=== PATIENT | male | born 1945 | race Caucasian/White ===

== ENCOUNTER → 2017-08-05 08:16 | Outpatient (CLI) | payer MEDICARE, SELFPAY ==
[2017-08-07 14:09] LABS: PSA Free % 15 % (calc) (> 25); PSA, Total 3.4 ng/mL (< 4.1)
== END ==
PROVIDERS: PCP Family Medicine; Visit Provider Family Medicine
DX: R97.20 Elevated prostate specific antigen [PSA] (principal)
CPT/HCPCS: 36415; 84153; 84154

== ENCOUNTER → 2017-11-05 06:51 | Outpatient (CLI) | payer MEDICARE, OTHER, SELFPAY ==
[2017-11-07 12:22] LABS: PSA Free % 17 % (calc) (> 25); PSA, Total 5.2 ng/mL (< 4.1)
== END ==
PROVIDERS: PCP Family Medicine; Visit Provider Family Medicine
DX: R97.20 Elevated prostate specific antigen [PSA] (principal)
CPT/HCPCS: 36415; 84153; 84154

== ENCOUNTER → 2018-03-21 08:46 | Outpatient (CLI) | payer MEDICARE, OTHER, SELFPAY ==
--- NOTE | 2018-03-21 | DI.CT.S_ITS ---
PROCEDURE: CT SINUS SCREEN WO CON INDICATIONS: CHRONIC SINITIS TECHNIQUE: Noncontrast 3.0 mm axial images acquired from the frontal sinuses to the mid-sella, with coronal and sagittal reformats. For radiation dose reduction, the following was used: automated exposure control, adjustment of mA and/or kV according to patient size. COMPARISON: None. FINDINGS: Image quality: Excellent. Maxillary Sinuses: There is moderate to prominent left-sided and moderate right-sided mucosal thickening seen. Mild demineralization can be seen of the medial churchill of the maxillary sinuses. Ethmoid Air Cells: Moderate mucosal thickening is seen within the ethmoid air cells. There is mild demineralization seen of ethmoid air cell septations. Sphenoid Sinuses: No bony remodeling or destruction. Sinuses are clear. Frontal Sinuses: No bony remodeling or destruction. Moderate mucosal thickening can be seen on the right, with mild mucosal thickening on the left. Ostiomeatal Complexes: The left ostiomeatal complex appears occluded by soft tissue. The right ostiomeatal complex is patent, yet is narrowed by soft tissue thickening. The ostiomeatal complexes are demineralized. Miscellaneous: Visualized intra-orbital contents are normal. No susu bullosa or paradoxical turbinate curvature. There is mild rightward nasal septal deviation. IMPRESSION: Chronic appearing paranasal sinus disease, which is most prominent involving the left maxillary sinus. The left ostiomeatal complex appears occluded by soft tissue. Dictated by: Ino Stallings M.D. on 03/21/2018 at 9:15 Approved by: Ino Stallings M.D. on 03/21/2018 at 9:18
== END ==
PROVIDERS: PCP Family Medicine; Visit Provider Otolaryngology
DX: J32.8 Other chronic sinusitis (principal); J34.2 Deviated nasal septum
CPT/HCPCS: 70486

== ENCOUNTER → 2018-07-02 08:03 | Outpatient (CLI) | payer MEDICARE, OTHER, SELFPAY ==
[2018-07-05 17:18] LABS: PSA Free % 13 % (calc) (> 25); PSA, Total 3.9 ng/mL (< 4.1)
== END ==
PROVIDERS: PCP Family Medicine; Visit Provider Urology
DX: R97.20 Elevated prostate specific antigen [PSA] (principal)
CPT/HCPCS: 36415; 84153; 84154

== ENCOUNTER → 2018-09-17 07:20 | Outpatient (CLI) | payer MEDICARE, OTHER, SELFPAY ==
[2018-09-17 07:38] LABS: Add Manual Diff / Slide Review NO; Basophils Absolute Auto 0 /uL (0-100); Basophils Percent Auto 0.5 % (0-2); Eosinophils Absolute Auto 300 /uL (0-450); Eosinophils Percent Auto 5.6 % (2-4); Hematocrit 41.5 % (41-53); Hemoglobin 13.8 g/dL (13.5-17.5); Lymphocytes Absolute Auto 1800 /uL (1100-4500); Lymphocytes Percent Auto 30.4 % (25-40); Mean Corpuscular HGB Conc 33.3 % (30-36); Mean Corpuscular Hemoglobin 29.1 PG (26-34); Mean Corpuscular Volume 87.5 fL (80-100); Monocytes Absolute Auto 500 /uL (0-900); Monocytes Percent Auto 8.5 % (3-14); Neutrophils Absolute Auto 3200 /uL (1500-7000); Platelet Count 211 X10^3/uL (150-400); Red Blood Cell Count 4.74 X10^6/uL (4.5-5.9); Red Cell Distribution Width 14.6 % (11.6-14.8); White Blood Cell Count 5.9 X10^3/uL (4.5-11.0)
[2018-09-17 07:47] LABS: Alanine Aminotransferase 51 IU/L (21-72); Albumin 4.3 g/dL (3.5-5.0); Albumin Globulin Ratio 1.4 (1.0-2.8); Alkaline Phosphatase 49 U/L (38-126); Aspartate Aminotransferase 49 IU/L (17-59); BUN Creatinine Ratio 21.3 (6-22); Bilirubin Total 0.6 mg/dL (0.2-1.3); Blood Urea Nitrogen 17 mg/dL (9-20); Calcium 9.7 mg/dL (8.4-10.2); Carbon Dioxide 32 mmol/L (22-32); Chloride 104 mmol/L (98-107); Cholesterol 206 mg/dL (140-199); Estimated Glomerular Filt Rate > 60.0 mL/min (>60); Globulin 3.1 g/dL (1.7-4.1); Glucose 94 mg/dL (80-110); HDL Cholesterol 75 mg/dL (40-60); HEMOLYSIS < 15 (0-50); LDL Cholesterol Calculated 115 mg/dL (<100); Potassium 4.8 mmol/L (3.4-5.1); Sodium 143 mmol/L (137-145); Total Protein 7.4 g/dL (6.3-8.2); Triglycerides 78 mg/dL (35-150)
[2018-09-17 08:28] LABS: Thyroid Stimulating Hormone 3.29 uIU/mL (0.47-4.68)
[2018-09-20 14:12] LABS: PSA Free % 18 % (calc) (> 25); PSA, Total 5.1 ng/mL (< 4.1)
== END ==
PROVIDERS: PCP Family Medicine; Visit Provider Family Medicine
DX: E78.5 Hyperlipidemia, unspecified (principal); Z79.899 Other long term (current) drug therapy; I10 Essential (primary) hypertension; R97.20 Elevated prostate specific antigen [PSA]
CPT/HCPCS: 36415; 80053; 80061; 84153; 84154; 84443; 85025

== ENCOUNTER 2018-10-20 07:44 | Emergency (ER) | payer MEDICARE, SELFPAY ==
[2018-10-20 07:56] VITALS: BP 162/85; PULSE 65; RESP 16; TEMP 36.4; O2SAT 100; BMI 29.2
--- NOTE | 2018-10-20 08:14 | ED.LOWEXIN ---
HPI - Extremity Injury (Lower) General Chief Complaint: Extremity Injury, Lower Stated Complaint: LT KNEE KEEPING FROM WALKING Time Seen by Provider: 10/20/18 08:12 Source: patient Mode of arrival: ambulatory Limitations: no limitations History of Present Illness HPI Narrative: Patient is a 73-year-old male who presents with left knee pain. He states has been ongoing for about the last 7-10 days. He says he rides a recumbent bicycle 67 days a week for an hour. This is nothing abnormal for him. He denies any other strenuous activity. He denies numbness or tingling. This morning woke up and thought it was a little more swollen than the right knee. He has not taken any Tylenol or ibuprofen for pain. Related Data Home Medications Medication Instructions Recorded Confirmed CA PANTOTHENATE/FOLIC ACID/VIT 1 tab PO Q DAY #0 03/23/11 09/24/18 (MULTIVITAMIN) Fish Oil (#FISH OIL) 1 iu PO Q DAY #0 03/23/11 09/24/18 Glucosamine Hydrochloride 500 mg PO Q DAY #0 03/23/11 09/24/18 (#GLUCOSAMINE) [CALCIUM] Q DAY #0 03/23/11 09/24/18 ascorbic acid (vitamin C) 1,000 mg PO QDAY #0 07/31/12 09/24/18 [employer] Dreamstation CPAP #1 ea 09/01/18 09/24/18 Previous Rx's Medication Instructions Recorded atorvastatin 40 mg tablet 20 mg PO DAILY #45 tab 09/25/18 paroxetine 20 mg tablet 20 mg PO QDAY #90 tab 09/25/18 Allergies Allergy/AdvReac Type Severity Reaction Status Date / Time ibuprofen [IBUPROFEN] Allergy Intermediate HIVES Verified 09/24/18 11:14 Review of Systems Review of Systems GENERAL: Denies chills,fever HEENT: Denies throat pain RESPIRATORY: See HPI CARDIOVASCULAR: Denies chest pain, palpitations GASTROINTESTINAL: Denies nausea, vomiting MUSCULOSKELETAL: Denies extremity pain, injury SKIN: No rash, no laceration, no pruritus NEUROLOGIC: Denies weakness, dizziness, headache, numbness 8 point review of systems is negative except for those stated above and HPI [facility] Medical History Obstructive sleep apnea of adult (Chronic) Chronic congestion of paranasal sinus (Chronic) Hay fever (Chronic) Hearing deficit (Chronic) Sleep apnea (Chronic) Vision disorder (Chronic) Surgical History Anesthesia (Resolved) Status post hernia repair Status post rotator cuff repair Family History (Updated 04/30/16 @ 00:00 by Conversion Provider) Mother Heart disease Social History (Updated 03/05/18 @ 12:11 by JONELLE Howe) marital status: details: mikel Brown household members: spouse lives independently: Yes caregiver/support person: No 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 Smoking Status: Never smoker alcohol intake: current substance use type: does not use Type(s) of exercise: bicycling and regular exercise frequency: 5-6 times per week Family History Mother Heart disease Social History marital status: details: mikel Brown household members: spouse lives independently: Yes caregiver/support person: No 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 CARDIOVASCULAR: peripheral pulses in tact, cap refill <2 sec RESPIRATORY: No respiratory distress, speaks in full sentences without difficulty EXTREMITIES: Normal range of motion, no clubbing or edema. Neurovascularly intact Left knee: Stable minimal swelling no erythema NEUROLOGICAL: Cranial nerves II through XII grossly intact. Normal gait and speech. SKIN: Warm, dry, no petechiae, no rashes or lesions. Course Orders Ordered: ED Orders 10/20/18 08:14 XR knee LT 3V Stat Vital Signs - 8 hr 10/20/18 07:56 Temperature 97.6 F Pulse Rate 65 Respiratory Rate 16 Blood Pressure 162/85 H Pulse Oximetry 100 MDM - Extremity Injury (Lower) Imaging Data left knee: Radiologist's impression: PROCEDURE: XR KNEE LT 3V INDICATIONS: pain TECHNIQUE: 3 views of the knee were acquired. COMPARISON: [facility], , KNEE 3V RIGHT, 09/20/2015, 10:47. FINDINGS: Bones: No fractures or dislocations. Moderate DJD most pronounced in the medial compartment where there is joint space narrowing and osteophytosis. No suspicious bony lesions. Soft tissues: Large joint effusion. No suspicious soft tissue calcifications. IMPRESSION: No acute osseous abnormality. Large joint effusion. Dictated by: Ko Howell M.D. on 10/20/2018 at 8:58 Discharge Plan Departure Patient Disposition: Home Clinical Impression: Strain of knee Qualifiers: Encounter type: initial encounter Laterality: left Qualified Code(s): S86.912A - Strain of unspecified muscle(s) and tendon(s) at lower leg level, left leg, initial encounter Instructions: DI for Osteoarthritis Activity Restrictions/Additional Instructions: *You have been diagnosed with left knee strain *What to do: Exercises good specially riding the bike. However if it becomes too painful you may need to cut back on the frequency or duration. Ice 20 minutes at a time elevate *Continue to take medications as directed Tylenol 1000 mg every 6 hours only needed for pain *Follow up with your primary care provider in 2-3 days *Return to ER if you should have redness swelling numbness tingling weakness or any new, worsening or concerning symptoms Prescriptions: No Action Fish Oil (#FISH OIL) 1 iu PO Q DAY Qty: 0 RF: 0 CA PANTOTHENATE/FOLIC ACID/VIT (MULTIVITAMIN) 1 tab PO Q DAY Qty: 0 RF: 0 [CALCIUM] Q DAY Qty: 0 RF: 0 Glucosamine Hydrochloride (#GLUCOSAMINE) 500 mg PO Q DAY Qty: 0 RF: 0 ascorbic acid (vitamin C) 500 MG tablet 1,000 mg PO QDAY Qty: 0 RF: 0 atorvastatin 40 mg tablet 20 mg PO DAILY Qty: 45 RF: 3 paroxetine HCl [Paxil] 20 mg tablet 20 mg PO QDAY Qty: 90 RF: 3 [employer] Dreamstation CPAP Qty: 1 RF: 0 Referrals: Nelson Dias MD [Primary Care Provider] -
[2018-10-20 09:15] VITALS: BP 158/88; PULSE 78; RESP 18; O2SAT 98
== END 2018-10-20 09:20 | disposition home or self-care (01) ==
PROVIDERS: Emergency Provider Emergency Medicine; PCP Family Medicine
DX: S86.912A Strain of unspecified muscle(s) and tendon(s) at lower leg level, left leg, initial encounter (principal)
CPT/HCPCS: 73562; 99282; 99283

== ENCOUNTER → 2018-11-04 10:18 | Outpatient (CLI) | payer MEDICARE, SELFPAY ==
--- NOTE | 2018-11-04 | DI.US.S_ITS ---
PROCEDURE: US PERIPH VENOUS LOW EXTREM LT INDICATIONS: PAIN IN LT KNEE TECHNIQUE: Real-time imaging, as well as color and pulse Doppler interrogation, were performed of the lower extremity deep veins from the inguinal ligament to the popliteal fossa. COMPARISON: None. FINDINGS: The common femoral, femoral and popliteal veins are normally compressible, and free of intraluminal thrombus. Color and pulse Doppler demonstrate normal phasic intraluminal flow. There is normal augmentation response to distal compression maneuver. Note is made of a ovoid structure measuring 1.2 x 3.5 x 4.9 cm at the posterior medial knee, with an appearance suggestive of ruptured Berg cyst as the underlying cause. Adjacent muscular tear also might produce such an appearance. MR scanning can be utilized accurately discriminate between these 2 possibilities if clinically desired. IMPRESSION: No DVT found. Berg's cyst rupture versus muscular injury as discussed, statistically most likely a Berg's cyst as the underlying cause. Dictated by: Iker Valero M.D. on 11/04/2018 at 14:58 Approved by: Iker Valero M.D. on 11/04/2018 at 14:59
== END ==
PROVIDERS: PCP Family Medicine; Visit Provider Orthopaedic Surgery
DX: M25.562 Pain in left knee (principal)
CPT/HCPCS: 93971

== ENCOUNTER 2019-04-20 21:23 | Emergency (ER) | payer MEDICARE, OTHER, SELFPAY ==
[2019-04-20 21:32] VITALS: BP 128/65; PULSE 72; RESP 16; TEMP 36.8; O2SAT 99; BMI 27.8
--- NOTE | 2019-04-20 21:43 | DI.RAD.S_ITS ---
PROCEDURE: XR CHEST 1V INDICATIONS: chest pain TECHNIQUE: One view of the chest was acquired. COMPARISON: [facility], , CHEST 2 VIEW, 06/26/2013, 21:01. FINDINGS: Surgical changes and devices: None. Lungs and pleura: Lungs are hyperlucent. No focal consolidation. No pleural effusions or pneumothorax. Mediastinum: Mediastinal contours appear normal. Prominent central pulmonary arteries. Heart size is normal. Bones and chest wall: No suspicious bony lesions. Overlying soft tissues appear unremarkable. IMPRESSION: 1. No acute radioulnar disease. 2. Underlying emphysematous change. Dictated by: Yessenia Pacheco M.D. on 04/20/2019 at 22:23 Approved by: Yessenia Pacheco M.D. on 04/20/2019 at 22:23
--- NOTE | 2019-04-20 21:44 | DI.CT.S_ITS ---
PROCEDURE: CT HEAD/BRAIN WO CON INDICATIONS: syncope TECHNIQUE: Noncontrast 4.5 mm thick angled axial sections acquired from the foramen magnum to the vertex, with coronal and sagittal reformats. For radiation dose reduction, the following was used: automated exposure control, adjustment of mA and/or kV according to patient size. COMPARISON: None. FINDINGS: Image quality: Excellent. CSF spaces: Basal cisterns are patent. No extra-axial fluid collections. The ventricles are symmetric in size and shape. Brain: No intracranial bleeds or masses. There is cerebral volume loss for age, with resultant ventricular and sulcal prominence. There are periventricular and deep white matter chronic small vessel ischemic changes. There is intracranial internal carotid artery atherosclerosis. Skull and face: Calvarium and visualized facial bones appear intact, without suspicious lesions. Sinuses: Mucosal thickening is scattered throughout the ethmoid air cells. Frothy air fluid level noted in the sphenoid sinuses. Scattered opacities noted in the left mastoid air cells with a few scattered air-fluid levels. Air fluid level noted in the left middle ear. IMPRESSION: 1. No acute intracranial disease process. 2. Opacities and air-fluid levels involving the left mastoid air cells and left middle ear concerning for otomastoiditis. Please correlate with clinical findings. Dictated by: Nicki Rudolph MD, PhD on 04/21/2019 at 7:27 Approved by: Nicki Rudolph MD, PhD on 04/21/2019 at 7:35
[2019-04-20 21:56] LABS: PTT Partial Thromboplastin Tim 27 SECONDS (26.4-36.2)
[2019-04-20 21:58] LABS: Alanine Aminotransferase 31 IU/L (<50); Albumin 4.4 g/dL (3.5-5.0); Albumin Globulin Ratio 1.4 (1.0-2.8); Alkaline Phosphatase 37 U/L (38-126); Aspartate Aminotransferase 57 IU/L (17-59); Bilirubin Total 0.5 mg/dL (0.2-1.3); Blood Urea Nitrogen 24 mg/dL (9-20); Calcium 9.8 mg/dL (8.4-10.2); Carbon Dioxide 26 mmol/L (22-32); Chloride 105 mmol/L (98-107); Creatine Kinase 86 U/L (55-170); Estimated Glomerular Filt Rate > 60.0 mL/min (>60); Globulin 3.1 g/dL (1.7-4.1); Glucose 121 mg/dL (80-110); Lipase 166 U/L (23-300); Potassium 4.6 mmol/L (3.4-5.1); Sodium 141 mmol/L (137-145); Total Protein 7.5 g/dL (6.3-8.2)
[2019-04-20 21:59] LABS: HEMOLYSIS 111 (0-50)
[2019-04-20 22:00] LABS: Add Manual Diff / Slide Review NO; Basophils Absolute Auto 100 /uL (0-100); Eosinophils Absolute Auto 400 /uL (0-450); Eosinophils Percent Auto 4.4 % (2-4); Hematocrit 38.5 % (41-53); Lymphocytes Absolute Auto 3900 /uL (1100-4500); Lymphocytes Percent Auto 43.9 % (25-40); Mean Corpuscular HGB Conc 33.7 % (30-36); Mean Corpuscular Hemoglobin 29.2 PG (26-34); Mean Corpuscular Volume 86.5 fL (80-100); Monocytes Absolute Auto 700 /uL (0-900); Monocytes Percent Auto 8.3 % (3-14); Neutrophils Absolute Auto 3700 /uL (1500-7000); Neutrophils Percent Auto 42.4 % (50-75); Platelet Count 266 X10^3/uL (150-400); Red Blood Cell Count 4.45 X10^6/uL (4.5-5.9); White Blood Cell Count 8.8 X10^3/uL (4.5-11.0)
[2019-04-20 22:10] LABS: Troponin I < 0.012 ng/mL (0.01-0.034)
--- NOTE | 2019-04-20 23:15 | ED_ITS ---
HPI - Syncope General Chief Complaint: Syncope Stated Complaint: Syncope Time Seen by Provider: 04/20/19 23:10 Source: patient Mode of arrival: EMS Limitations: no limitations History of Present Illness HPI narrative: This is a 74-year-old male who comes to the emergency department with complaint of syncope. Patient states this evening he had not had much to drink in terms of water he had about 36 oz total which is not normal for him he gone to the gym then driven [place] the airport [place] his [place]. Had gone out to dinner with them and then went home have dinner he had 2-3 glasses of wine and smoked some marijuana he states he has had issues if he drinks alcohol and then smokes marijuana and this evening he did do that. He states that he is not sure exactly how long he was out per his she had told him [facility] thought it might have been minutes. Patient denies any headache, no chest pain or shortness of breath, no abdominal pain, no nausea vomiting no GI or urinary symptoms. He is feeling much better at this time. He states he has had similar presyncopal type symptoms when he has combined alcohol and THC particularly when he uses THC after drinking wine. Patient states that he takes medication for cholesterol and depression. He has had a rotator cuff surgery. Denies tobacco, he does drink alcohol intermittently and smokes marijuana occasionally. Related Data Home Medications Medication Instructions Recorded Confirmed CA PANTOTHENATE/FOLIC ACID/VIT 1 tab PO Q DAY #0 03/23/11 09/24/18 (MULTIVITAMIN) Fish Oil (#FISH OIL) 1 iu PO Q DAY #0 03/23/11 09/24/18 Glucosamine Hydrochloride 500 mg PO Q DAY #0 03/23/11 09/24/18 (#GLUCOSAMINE) [CALCIUM] Q DAY #0 03/23/11 09/24/18 ascorbic acid (vitamin C) 1,000 mg PO QDAY #0 07/31/12 09/24/18 [employer]prion[employer] Dreamstation CPAP #1 ea 09/01/18 09/24/18 Previous Rx's Medication Instructions Recorded atorvastatin 40 mg tablet 20 mg PO DAILY #45 tab 09/25/18 paroxetine HCl 20 mg tablet 20 mg PO QDAY #90 tab 09/25/18 Allergies Allergy/AdvReac Type Severity Reaction Status Date / Time ibuprofen [IBUPROFEN] Allergy Intermediate HIVES Verified 04/20/19 21:42 Review of Systems Review of Systems ROS Unobtainable: All systems reviewed & are unremarkable except as noted in HPI and below Patient History Medical History Chronic congestion of paranasal sinus (Chronic) Hay fever (Chronic) Hearing deficit (Chronic) Obstructive sleep apnea of adult (Chronic) Sleep apnea (Chronic) Vision disorder (Chronic) Surgical History Anesthesia (Resolved) Status post hernia repair Status post rotator cuff repair Social History marital status: details: to Stephanie household members: spouse lives independently: Yes caregiver/support person: No 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 HEENT: Atraumatic, pupils are equal round reactive to light, extraocular movements are intact, nares are clear, throat is clear without any exudates, erythema, tonsillar enlargement or uvular deviation HEART: Regular rate and rhythm without murmur, clicks, rubs. LUNGS:Lungs clear to auscultation, no wheezes, rales, crackles, chest moves symmetrically ABD:bowel sounds normal, soft, non-tender, no guarding, rebound, rigidity, no masses noted, no hepatosplenomegaly :No CVA tenderness. MSCL: Non-tender, no muscle atrophy, muscles strength 5/5 upper and lower extremities, full range of motion, normal gait NEURO:CN 2-12 intact, sensation normal. SKIN: no rashes, no skin changes. Initial Vital Signs Initial Vital Signs: Vital Signs Temperature 98.2 F 04/20/19 21:32 Pulse Rate 72 04/20/19 21:32 Respiratory Rate 16 04/20/19 21:32 Blood Pressure 128/65 04/20/19 21:32 Pulse Oximetry 99 04/20/19 21:32 Course Orders Ordered: ED Orders 04/20/19 21:20 Complete Blood Count AUTO DIFF Stat Comprehensive Metabolic Panel Stat Lipase Stat Partial Thromboplastin Time Stat Prothrombin Time INR Stat Troponin & CK Cardiac Panel Stat 04/20/19 21:43 XR chest 1V Stat EKG-12 Lead Stat 04/20/19 21:44 CT head/brain wo con Stat Vital Signs Vital signs: Vital Signs - 8 hr 04/20/19 23:46 Pulse Rate 90 Respiratory Rate 17 Blood Pressure [Left Arm] 142/68 H Pulse Oximetry 97 MDM - Syncope Lab Data Attestation: I reviewed the patient's lab results. Result diagrams: 04/20/19 21:20 04/20/19 21:20 Labs: Lab Results 04/20/19 04/20/19 04/20/19 Range/Units 21:20 21:20 21:20 WBC 8.8 (4.5-11.0) X10^3/uL RBC 4.45 L (4.5-5.9) X10^6/uL Hgb 13.0 L (13.5-17.5) g/dL Hct 38.5 L (41-53) % MCV 86.5 (80-100) fL MCH 29.2 (26-34) PG MCHC 33.7 (30-36) % RDW 14.0 (11.6-14.8) % Plt Count 266 (150-400) X10^3/uL Neut % (Auto) 42.4 L (50-75) % Lymph % (Auto) 43.9 H (25-40) % [place] % (Auto) 8.3 (3-14) % Eos % (Auto) 4.4 H (2-4) % Baso % (Auto) 1.0 (0-2) % Neut # (Auto) 3700 (2658-4664) /uL Lymph # (Auto) 3900 (6324-2272) /uL [place] # (Auto) 700 (0-900) /uL Eos # (Auto) 400 (0-450) /uL Baso # (Auto) 100 (0-100) /uL PT 12.0 (10.1-12.7) SECONDS INR 1.0 (0.9-1.3) APTT 27 (26.4-36.2) SECONDS Sodium 141 (137-145) mmol/L Potassium 4.6 (3.4-5.1) mmol/L Chloride 105 (98-107) mmol/L Carbon Dioxide 26 (22-32) mmol/L BUN 24 H (9-20) mg/dL Creatinine 1.00 (0.66-1.25) mg/dL Estimated GFR > 60.0 (>60) mL/min BUN/Creatinine Ratio 24.0 H (6-22) Glucose 121 H (80-110) mg/dL Calcium 9.8 (8.4-10.2) mg/dL Total Bilirubin 0.5 (0.2-1.3) mg/dL AST 57 (17-59) IU/L ALT 31 (<50) IU/L Alkaline Phosphatase 37 L (38-126) U/L Total Creatine Kinase 86 (55-170) U/L CK-MB (CK-2) TNP CK-MB (CK-2) Rel Index TNP Troponin I < 0.012 (0.01-0.034) ng/mL Total Protein 7.5 (6.3-8.2) g/dL Albumin 4.4 (3.5-5.0) g/dL Globulin 3.1 (1.7-4.1) g/dL Albumin/Globulin Ratio 1.4 (1.0-2.8) Lipase 166 (23-300) U/L Imaging Data CT scan - head: Radiologist's Impression: Negative for acute intracranial abnormality. Moderate polys sinus disease. On the left well developed and opacified mastoid air cells. Chest x-ray: Radiologist's Impression: [place] [address] XRay Report Signed Patient: nIdra Purdy WMR#: [id number] : 3Acct:[id number] Age/Sex: 74 / MDate of Service: 04/20/19 Loc: ED Accession Number: [id number] Procedure: XR chest 1V Ordering Provider: Pat Do D.O. PROCEDURE: XR CHEST 1V INDICATIONS: chest pain TECHNIQUE: One view of the chest was acquired. COMPARISON: [facility], , CHEST 2 VIEW, 06/26/2013, 21:01. FINDINGS: Surgical changes and devices: None. Lungs and pleura: Lungs are hyperlucent. No focal consolidation. No pleural effusions or pneumothorax. Mediastinum: Mediastinal contours appear normal. Prominent central pulmonary arteries. Heart size is normal. Bones and chest wall: No suspicious bony lesions. Overlying soft tissues appear unremarkable. IMPRESSION: 1. No acute radioulnar disease. 2. Underlying emphysematous change. Dictated by: Yessenia Pacheco M.D. on 04/20/2019 at 22:23 Approved by: Yessenia Pacheco M.D. on 04/20/2019 at 22:23 ECG Data Attestation: I personally reviewed and interpreted this ECG as follows: Prior ECG tracings: available for review Interpretation: Sinus rhythm rate of 71 GA 206 QRS of 102 and QTC of 419. Patient does not have any ST elevation depression appreciated. Questionable in V2 3 initially but on comparison to prior from 06/26/2013 appears similar. [facility] Narrative Medical decision making narrative: Patient comes in with syncopal episode after combining wine and marijuana which he states often gives him presyncopal type symptoms. Hemoglobin is 13 which appears consistent with his priors back to 201 7., BUN is 24 with normal renal function and electrolytes. Glucose is 121. Troponin is negative. Head CT was negative for acute changes. Chest x-ray also did not show any acute findings. Patient received a L of fluids in department he is feeling much better upon sitting up. On ambulation trial patient has no issues. Feeling much better and discharged home with return precautions. Discharge Plan Departure Patient Disposition: Home Clinical Impression: Syncope Qualifiers: Syncope type: unspecified Qualified Code(s): R55 - Syncope and collapse Discharge Date/Time: 04/21/19 00:00 Instructions: DI for Syncope in Adults (Fainting) Activity Restrictions/Additional Instructions: Follow-up with your primary care physician next several days for recheck. Continue home medication as prescribed. I would recommend avoiding alcohol and marijuana in combination. Return to the ER for new or recurrent symptoms, his severe headaches, vision changes, new chest pain, shortness of breath, lightheadedness or passing out, persistent vomiting, abdominal pain, black or bloody stools or other new or concerning symptoms. Prescriptions: No Action Fish Oil (#FISH OIL) 1 iu PO Q DAY Qty: 0 RF: 0 CA PANTOTHENATE/FOLIC ACID/VIT (MULTIVITAMIN) 1 tab PO Q DAY Qty: 0 RF: 0 [CALCIUM] Q DAY Qty: 0 RF: 0 Glucosamine Hydrochloride (#GLUCOSAMINE) 500 mg PO Q DAY Qty: 0 RF: 0 ascorbic acid (vitamin C) 500 MG tablet 1,000 mg PO QDAY Qty: 0 RF: 0 atorvastatin 40 mg tablet 20 mg PO DAILY Qty: 45 RF: 3 paroxetine HCl [Paxil] 20 mg tablet 20 mg PO QDAY Qty: 90 RF: 3 (DME) [employer] Dreamstation CPAP Qty: 1 RF: 0 Referrals: Nelson Dias MD [Primary Care Provider] -
--- NOTE | 2019-04-20 23:40 | PC.NURSE ---
Pt ambulated under own power with a steady gait.
[2019-04-20 23:46] VITALS: BP 142/68; PULSE 90; RESP 17; O2SAT 97
== END 2019-04-21 | disposition home or self-care (01) ==
PROVIDERS: Emergency Provider Emergency Medicine; PCP Family Medicine
DX: R55 Syncope and collapse (principal); R07.9 Chest pain, unspecified
CPT/HCPCS: 70450; 71045; 80053; 82550; 83690; 84484; 85025; 85610; 85730; 93005; 99282; 99285

== ENCOUNTER → 2019-07-09 13:42 | Outpatient (CLI) | payer MEDICARE, SELFPAY ==
--- NOTE | 2019-07-09 | DI.MRI.S_ITS ---
PROCEDURE: MR KNEE LT WO CON INDICATIONS: Derangement of unspecified medial meniscus due to TECHNIQUE: Noncontrast sagittal PD fast spin echo and T2 fast spin echo with fat saturation, sagittal 3-D FLASH with fat saturation; coronal T1 spin echo and PD fast spin echo with fat saturation, and axial PD fast spin echo with fat saturation through the knee. COMPARISON: None. FINDINGS: Image quality: Excellent. Menisci: Poorly defined macerated medial meniscal tear involving the body, posterior horn with slight partial extrusion. Marked truncation of the free margin of the body of the lateral meniscus. Cruciate ligaments: Anterior cruciate ligament appears intact. Posterior cruciate ligament appears intact. Medial structures: There is medial bowing of the medial collateral ligament, with mild internal signal changes and no complete rupture. There is adjacent soft tissue edema. The appearance could reflect reactive changes to medial compartment pathology, versus low-grade sprain of the MCL. Pes anserinus tendons appear grossly unremarkable. Semimembranosus tendon appears intact. Lateral structures: The lateral collateral ligament intact. Biceps femoris tendon appears intact. Popliteus tendon grossly unremarkable. Iliotibial band appears intact. Anterior structures: Quadriceps tendon intact. Medial and lateral patellofemoral ligaments intact. Proximal patellar tendinopathy. Adjacent edema and fluid Hoffa's fat pad unremarkable. Bones and cartilage: No focal marrow contusion or discrete low signal fracture line. Within the medial compartment, diffuse partial-thickness loss of the femoral and tibial articular cartilage Within the lateral compartment, diffuse surface fraying of the femoral and tibial cartilage without focal defect. Within the patellofemoral compartment, diffuse partial-thickness loss of the femoral trochlear and patellar cartilage Joint space: Small joint effusion. Large Berg's cyst which measures approximately 7 cm in the cephalocaudad dimension. This may be partially ruptured, and contains scant debris. No specific evidence of intra-articular loose body. IMPRESSION: Macerated ill-defined medial meniscal tear involving the posterior horn and body with slight partial extrusion. Truncated appearance of the free margin of the lateral meniscus body. Proximal patellar tendinopathy Large Berg's cyst Small joint effusion Degenerative joint disease as above Dictated by: Ike Lazar M.D. on 07/09/2019 at 15:51 Approved by: Ike Lazar M.D. on 07/09/2019 at 15:59
== END ==
PROVIDERS: PCP Family Medicine; Referring Provider Orthopaedic Surgery; Visit Provider Orthopaedic Surgery
DX: S83.242A Other tear of medial meniscus, current injury, left knee, initial encounter (principal); M71.22 Synovial cyst of popliteal space [Baker], left knee; M17.12 Unilateral primary osteoarthritis, left knee; M25.462 Effusion, left knee; M67.962 Unspecified disorder of synovium and tendon, left lower leg
CPT/HCPCS: 73721

== ENCOUNTER → 2019-11-30 07:33 | Outpatient (CLI) | payer MEDICARE, SELFPAY ==
[2019-11-30 08:57] LABS: Add Manual Diff / Slide Review NO; Basophils Absolute Auto 100 /uL (0-100); Eosinophils Absolute Auto 400 /uL (0-450); Eosinophils Percent Auto 6.6 % (2-4); Hematocrit 39.4 % (41-53); Hemoglobin 13.3 g/dL (13.5-17.5); Lymphocytes Absolute Auto 1700 /uL (1100-4500); Mean Corpuscular HGB Conc 33.8 % (30-36); Mean Corpuscular Hemoglobin 29.3 PG (26-34); Mean Corpuscular Volume 86.8 fL (80-100); Monocytes Absolute Auto 500 /uL (0-900); Monocytes Percent Auto 9.4 % (3-14); Neutrophils Absolute Auto 2800 /uL (1500-7000); Platelet Count 197 X10^3/uL (150-400); Red Blood Cell Count 4.54 X10^6/uL (4.5-5.9); Red Cell Distribution Width 14.6 % (11.6-14.8); White Blood Cell Count 5.3 X10^3/uL (4.5-11.0)
[2019-11-30 09:17] LABS: Alanine Aminotransferase 35 IU/L (<50); Albumin 4.2 g/dL (3.5-5.0); Albumin Globulin Ratio 1.4 (1.0-2.8); Alkaline Phosphatase 48 U/L (38-126); Aspartate Aminotransferase 39 IU/L (17-59); BUN Creatinine Ratio 31.6 (6-22); Bilirubin Total 0.4 mg/dL (0.2-1.3); Blood Urea Nitrogen 25 mg/dL (9-20); Calcium 9.5 mg/dL (8.4-10.2); Carbon Dioxide 32 mmol/L (22-32); Chloride 105 mmol/L (98-107); Cholesterol 189 mg/dL (140-199); Estimated Glomerular Filt Rate > 60.0 mL/min (>60); Glucose 100 mg/dL (80-110); HDL Cholesterol 70 mg/dL (40-60); HEMOLYSIS < 15 (0-50); LDL Cholesterol Calculated 106 mg/dL (<100); Potassium 4.5 mmol/L (3.4-5.1); Sodium 141 mmol/L (137-145); Total Protein 7.2 g/dL (6.3-8.2); Triglycerides 63 mg/dL (35-150)
== END ==
PROVIDERS: PCP Family Medicine; Referring Provider Family Medicine; Visit Provider Family Medicine
DX: E78.2 Mixed hyperlipidemia (principal); I10 Essential (primary) hypertension; R97.20 Elevated prostate specific antigen [PSA]
CPT/HCPCS: 36415; 80053; 80061; 84153; 85025

== ENCOUNTER → 2020-04-08 13:31 | Outpatient (CLI) | payer MEDICARE, SELFPAY ==
[2020-04-08] MEDS: COVID-19 VACC #1, MRNA(MOD) 100 MCG/0.5 ML VIAL IM (13:40)
== END ==
PROVIDERS: PCP Family Medicine; Visit Provider Internal Medicine
DX: Z23 Encounter for immunization (principal)
CPT/HCPCS: 0011A; 91301

== ENCOUNTER → 2020-04-20 07:47 | Outpatient (CLI) | payer MEDICARE, SELFPAY ==
[2020-04-20 09:11] LABS: Prostate Specific Antigen Scrn 5.11 ng/mL (0.1-4.0)
[2020-04-20 09:20] LABS: Bacteria Urine None Seen; RBC Urine None Seen (0-5/HPF); WBC Urine None Seen (0-5/HPF)
[2020-04-20 09:42] LABS: Appearance Urine UA CLEAR; Bilirubin Urine UA NEGATIVE (NEGATIVE); Color Urine UA YELLOW; Glucose Urine UA NEGATIVE (Negative); Ketones Urine UA NEGATIVE (NEGATIVE); Leukocyte Esterase Urine UA NEGATIVE (NEGATIVE); Nitrite Urine UA NEGATIVE (Negative); Occult Blood Urine UA NEGATIVE (Negative); Protein Urine UA NEGATIVE (Negative); Specific Gravity Urine UA 1.015 (1.000-1.035); Urobilinogen Urine UA 0.2 E.U./dL (0.2); pH Urine UA 6.5 (4.5-8.0)
[2020-04-20 09:46] LABS: Culture Indicated Urine Cult Not Indicated; Urine Comments Microscopic Normal
== END ==
PROVIDERS: PCP Family Medicine; Referring Provider Family Medicine; Visit Provider Family Medicine
DX: E78.2 Mixed hyperlipidemia (principal); I10 Essential (primary) hypertension; R97.20 Elevated prostate specific antigen [PSA]; Z12.5 Encounter for screening for malignant neoplasm of prostate
CPT/HCPCS: 36415; 81001; G0103

== ENCOUNTER → 2020-05-05 11:08 | Outpatient (CLI) | payer MEDICARE, SELFPAY ==
[2020-05-05] MEDS: COVID-19 VACC #2, MRNA(MOD) 100 MCG/0.5 ML VIAL IM (11:19)
== END ==
PROVIDERS: PCP Family Medicine; Visit Provider Internal Medicine
DX: Z23 Encounter for immunization (principal)
CPT/HCPCS: 0012A; 91301

== ENCOUNTER → 2020-11-09 07:50 | Outpatient (CLI) | payer MEDICARE, SELFPAY ==
[2020-11-09 08:28] LABS: Add Manual Diff / Slide Review NO; Basophils Absolute Auto 100 /uL (0-100); Basophils Percent Auto 1.1 % (0-2); Eosinophils Absolute Auto 300 /uL (0-450); Eosinophils Percent Auto 5.5 % (2-4); Lymphocytes Absolute Auto 1800 /uL (1100-4500); Lymphocytes Percent Auto 32.5 % (25-40); Mean Corpuscular HGB Conc 32.6 % (30-36); Mean Corpuscular Hemoglobin 28.7 PG (26-34); Mean Corpuscular Volume 88.1 fL (80-100); Monocytes Absolute Auto 500 /uL (0-900); Monocytes Percent Auto 9.6 % (3-14); Neutrophils Absolute Auto 2800 /uL (1500-7000); Neutrophils Percent Auto 51.3 % (50-75); Platelet Count 199 X10^3/uL (150-400); Red Blood Cell Count 4.88 X10^6/uL (4.5-5.9); Red Cell Distribution Width 14.4 % (11.6-14.8); White Blood Cell Count 5.4 X10^3/uL (4.5-11.0)
[2020-11-09 09:44] LABS: Alanine Aminotransferase 33 IU/L (<50); Albumin 4.1 g/dL (3.5-5.0); Albumin Globulin Ratio 1.4 (1.0-2.8); Alkaline Phosphatase 53 U/L (38-126); Aspartate Aminotransferase 41 IU/L (17-59); BUN Creatinine Ratio 20.7 (6-22); Bilirubin Total 0.5 mg/dL (0.2-1.3); Blood Urea Nitrogen 19 mg/dL (9-20); Calcium 9.6 mg/dL (8.4-10.2); Carbon Dioxide 32 mmol/L (22-32); Chloride 102 mmol/L (98-107); Cholesterol 220 mg/dL (140-199); Estimated Glomerular Filt Rate > 60.0 mL/min (>60); Globulin 2.9 g/dL (1.7-4.1); Glucose 99 mg/dL (80-110); HDL Cholesterol 84 mg/dL (40-60); HEMOLYSIS < 15 (0-50); LDL Cholesterol Calculated 117 mg/dL (<100); Potassium 5.1 mmol/L (3.4-5.1); Sodium 139 mmol/L (137-145); Triglycerides 96 mg/dL (35-150)
== END ==
PROVIDERS: PCP Family Medicine; Referring Provider Family Medicine; Visit Provider Family Medicine
DX: I10 Essential (primary) hypertension (principal); E78.2 Mixed hyperlipidemia; R97.20 Elevated prostate specific antigen [PSA]
CPT/HCPCS: 36415; 80053; 80061; 85025

== ENCOUNTER → 2020-11-10 09:27 | Outpatient (CLI) | payer MEDICARE, SELFPAY ==
[2020-11-10 10:24] LABS: Prostate Specific Antigen Scrn 4.24 ng/mL (0.1-4.0)
== END ==
PROVIDERS: PCP Family Medicine; Visit Provider Family Medicine
DX: Z12.5 Encounter for screening for malignant neoplasm of prostate (principal)
CPT/HCPCS: G0103

== ENCOUNTER → 2020-12-27 08:06 | Outpatient (CLI) | payer MEDICARE, SELFPAY ==
--- NOTE | 2020-12-27 08:07 | DI.ECHO.S_ITS ---
[facility] +---------+ : : [address] : [place] : : : : [id number] : : : : Phone: [phone]---------+ Echocardiogram Report + + :Name: GIANCARLO MCCAULEY Study Date: 12/27/2020 Height: 72 in : :[facility] ReadingLocation: Weight: 208 lb : : Gender: Male BSA: 2.2 m2 : :: 1945 Age: 75 yrs BP: 167/94 mmHg: :Reason For Study: [place], HYPERTENSION : :Ordering Physician: VIOLETTE, : :LAZ Performed By: Lucero Carter : :Referring: LAZ OAKES : + + Interpretation Summary The left ventricle is normal in size and wall thickness. Left ventricular systolic function appears normal without focal wall motion abnormalities. The ejection fraction is estimated to be 60-65%. LVEF has not changed. Diastolic parameters suggest a relaxation abnormality of the left ventricle, consistent with probable normal filling pressures. The right ventricle is normal in size and function. The left atrial size is normal. Right atrial size is normal. There is mild to moderate aortic regurgitation. There is no other significant valvular heart disease. Both AR and MR have decreased since prior study. The ascending aorta is mildly enlarged. Procedure: A two-dimensional transthoracic echocardiogram with color flow and Doppler was performed. The study quality was technically adequate. Comparison is made with the echocardiogram of 07/03/2013. Left Ventricle: The left ventricle is normal in size and wall thickness. Left ventricular systolic function appears normal without focal wall motion abnormalities. The ejection fraction is estimated to be 60-65%. Diastolic parameters suggest a relaxation abnormality of the left ventricle, consistent with probable normal filling pressures. Right Ventricle: The right ventricle is normal in size and function. Atria: The left atrial size is normal. Right atrial size is normal. There is no Doppler evidence for an interatrial shunt. Mitral Valve: The mitral valve leaflets appear borderline thickened, but open well. There is trace mitral regurgitation. Aortic Valve: The aortic valve is trileaflet. The aortic valve opens well. There is no aortic valve stenosis. There is mild to moderate aortic regurgitation. Tricuspid Valve: The tricuspid valve is normal in structure and function. There is trace tricuspid regurgitation. Pulmonic Valve: The pulmonic valve leaflets are thin and pliable; valve motion is normal. There is trace pulmonic regurgitation. There is no other significant valvular heart disease. Great Vessels: The aortic root is normal size. The ascending aorta is mildly enlarged. The IVC is of normal diameter and collapses greater than 50% with a sniff. This suggests a low right atrial pressure of 3 mm Hg. Pericardium/ Pleura There is no pericardial effusion. There is no pleural effusion. MMode/2D Measurements & Calculations LVIDd: 5.4 cm LVOT diam: 2.0 cm LVIDs: 3.8 cm Ao root diam: 3.4 cm FS: 29.0 % asc Aorta Diam: 3.9 cm IVSd: 0.90 cm Ao Arch Diam (Prox Trans): 2.9 cm LVPWd: 1.0 cm LV thayer. diameter/BSA (cm/m^2): 2.5 LV sys. diameter/BSA (cm/m^2): 1.8 LA A2 area: 20.0 cm2 RA long axis: 5.7 cm LA A4 area: 17.3 cm2 RA area: 20.1 cm2 LA length (vol): 4.9 cm RA vol: 60.3 ml LA vol: 59.9 ml RA : 27.8 ml/m2 LA vol index: 27.6 ml/m2 IVC diam: 2.0 cm RVD1 (basal): 3.8 cm TAPSE: 2.9 cm Doppler Measurements & Calculations Ao V2 max: 122.5 cm/sec LVOT Max Asad: 118.0 cm/sec Ao V2 mean: 82.8 cm/sec LV V1 max P.6 mmHg Ao max P.0 mmHg LV V1 VTI: 21.1 cm Ao mean P.1 mmHg ALONSO(I,D): 2.6 cm2 Ao V2 VTI: 26.1 cm ALONSO(V,D): 3.1 cm2 sev ratio: 0.81 ALONSO indexed to BSA (cm^2/m^2): 1.2 AI P1/2t: 678.3 msec AI dec slope: 196.4 cm/sec2 MV E max asad: 66.9 cm/sec PA V2 max: 104.1 cm/sec MV A max asad: 92.0 cm/sec PA V2 mean: 72.2 cm/sec MV E/A: 0.73 PA mean P.3 mmHg Med Peak E' Asad: 7.2 cm/sec PA pr(Accel): 37.9 mmHg E/E' med: 9.4 Lat Peak E' Asad: 9.2 cm/sec E/E' lat: 7.3 E/e' average: 8.3 MV dec time: 0.24 sec SV(LVOT): 68.3 ml Reading Physician:03:59 PM
== END ==
PROVIDERS: PCP Family Medicine; Referring Provider Family Medicine; Visit Provider Family Medicine
DX: I35.1 Nonrheumatic aortic (valve) insufficiency (principal); I77.89 Other specified disorders of arteries and arterioles; R01.1 Cardiac murmur, unspecified; I10 Essential (primary) hypertension
CPT/HCPCS: 93306

== ENCOUNTER → 2021-08-10 07:07 | Outpatient (CLI) | payer MEDICARE, SELFPAY ==
[2021-08-10 07:50] LABS: Add Manual Diff / Slide Review NO; Basophils Absolute Auto 100 /uL (0-100); Basophils Percent Auto 1.2 % (0-2); Eosinophils Absolute Auto 400 /uL (0-450); Eosinophils Percent Auto 6.8 % (2-4); Hematocrit 41.3 % (41-53); Hemoglobin 13.9 g/dL (13.5-17.5); Lymphocytes Absolute Auto 1700 /uL (1100-4500); Mean Corpuscular HGB Conc 33.6 % (30-36); Mean Corpuscular Hemoglobin 28.9 PG (26-34); Mean Corpuscular Volume 86.1 fL (80-100); Monocytes Absolute Auto 400 /uL (0-900); Monocytes Percent Auto 8.6 % (3-14); Neutrophils Absolute Auto 2600 /uL (1500-7000); Neutrophils Percent Auto 50.4 % (50-75); Platelet Count 203 X10^3/uL (150-400); Red Cell Distribution Width 14.3 % (11.6-14.8); White Blood Cell Count 5.2 X10^3/uL (4.5-11.0)
[2021-08-10 08:31] LABS: Alanine Aminotransferase 28 IU/L (<50); Albumin 4.1 g/dL (3.5-5.0); Albumin Globulin Ratio 1.4 (1.0-2.8); Alkaline Phosphatase 45 U/L (38-126); Aspartate Aminotransferase 37 IU/L (17-59); BUN Creatinine Ratio 24.2 (6-22); Bilirubin Total 0.3 mg/dL (0.2-1.3); Blood Urea Nitrogen 22 mg/dL (9-20); Calcium 9.5 mg/dL (8.4-10.2); Carbon Dioxide 32 mmol/L (22-32); Chloride 105 mmol/L (98-107); Cholesterol 184 mg/dL (140-199); Estimated Glomerular Filt Rate > 60 mL/min (>60); Glucose 106 mg/dL (80-110); HDL Cholesterol 69 mg/dL (40-60); HEMOLYSIS < 15 (0-50); LDL Cholesterol Calculated 100 mg/dL (<100); Potassium 4.7 mmol/L (3.4-5.1); Sodium 141 mmol/L (137-145); Total Protein 7.1 g/dL (6.3-8.2); Triglycerides 73 mg/dL (35-150)
[2021-08-10 09:05] LABS: Prostate Specific Antigen Scrn 4.22 ng/mL (0.1-4.0); TSH w/ Reflex to FT4 5.52 uIU/mL (0.47-4.68)
[2021-08-10 10:09] LABS: Creatinine Urine Random 90.3 mg/dL
[2021-08-10 10:13] LABS: Microalbumi Creatinin Ratio Ur 141.7 ug/mg CR (<30); Microalbumin Urine Random 12.8 mg/dL (0-1.6)
[2021-08-10 10:47] LABS: Free T4, Direct Thyroxine 1.06 ng/dL (0.78-2.19)
== END ==
PROVIDERS: PCP Family Medicine; Referring Provider Family Medicine; Visit Provider Family Medicine
DX: E78.2 Mixed hyperlipidemia (principal); Z12.5 Encounter for screening for malignant neoplasm of prostate; I10 Essential (primary) hypertension; F32.9 Major depressive disorder, single episode, unspecified; R97.20 Elevated prostate specific antigen [PSA]
CPT/HCPCS: 36415; 80053; 80061; 82043; 82570; 84439; 84443; 85025; G0103

== ENCOUNTER → 2021-09-11 09:35 | Outpatient (CLI) | payer MEDICARE, SELFPAY ==
[2021-09-11 11:21] LABS: COVID19 -Nasal RAPID Negative (Negative)
--- NOTE | 2021-09-12 08:56 | PM.TREADMILL ---
Cardiac Stress Test Report Referral & Results Date Patient Seen: 09/12/21 Time Patient Seen: 08:45 Requesting provider: Donato Hidalgo Indication: Dyspnea Rest ECG: NSR Procedure Note: Today, following both written and verbal informed consent, the patient was exercised according to a standard Samuel protocol. The patient went for a total of 7 minutes 24 seconds achieving a maximum heart rate of 140 maximum systolic blood pressure of 186. This is approximately 10.1 METs. Exercise was terminated at this point because of fatigue. Patient was also given Cardiolite through a previously started Hep-Lock IV by the senior nuclear medicine technologist approximately 1 minute prior to the cessation of exercise. Normal hemodynamic response to exercise. No signs or symptoms of angina. Some wheezing. Rapid recovery. Rare PVCs. No other rhythm or ST changes. Excellent exercise capacity (FA I-25% on active scale). Impression: Low probability for ischemia. Perfusion imaging pending. Consider pulmonary function testing as a next step if symptoms persist. Please note: Actual ECG tracings can be found in the PACS system.
--- NOTE | 2021-09-12 20:55 | DI.NM.S_ITS ---
DATE OF SERVICE: 09/11/2021 PROCEDURE PERFORMED: Exercise perfusion study. INDICATION: Exertional shortness of breath, hypertension and hyperlipidemia. RADIOPHARMACEUTICAL: 26.5 millicurie technetium-99m Myoview IV was injected at stress and 24.5 millicurie technetium-99m Myoview IV was injected at rest. CARDIAC STRESS: The patient underwent exercise perfusion study under the supervision of an attending staff. The patient walked on Samuel protocol for 7 minutes and 24 seconds, achieved 99 percent of target heart rate. Baseline blood pressure 122/80. Peak blood pressure 186/94 mmHg. No symptoms of angina. Had some wheezing during exercise. Baseline rhythm was sinus. During stress, no convincing ischemic changes seen. No significant sustained arrhythmias other than rare PVCs. RUSS -25 percent. Achieved 10.1 METs of workload. RAW DATA: There is increased subdiaphragmatic activity. GATED STUDY: Resting LV ejection fraction 72 and stress LV ejection fraction 74 percent. Resting end-diastolic volume 133 mL. No obvious wall motion abnormalities. TID ratio 0.70, which is within normal limits. Lung/heart ratio 0.22, which is within normal limits. MYOCARDIAL PERFUSION SCAN: Stress supine, resting supine and stress prone images were compared to each other. Stress supine and resting supine images revealed moderate-size, moderately decreased perfusion of inferior wall and inferior apex, which got completely resolved during prone images suggestive of diaphragmatic tissue attenuation artifact. No convincing ischemia or infarction. CONCLUSION: This is a normal myocardial perfusion study with evidence of diaphragmatic tissue attenuation artifact, which got resolved during stress prone images. Stress prone images revealed normal myocardial perfusion. Good exercise tolerance. RUSS, -25 percent. Preserved left ventricular function. No significant sustained arrhythmias. Mildly hypertensive blood pressure response. Overall low-risk exercise myocardial perfusion study. The patient had a exercise perfusion study in Jul, 2013, at that time, also, there was an element of diaphragmatic attenuation artifact. At that time, the patient was able to walk on treadmill about 9 minutes and RUSS was -30 percent. Indra Purdy - GILDA/chrissy/ade doc#: [id number]/job#: [id number] dd: 09/12/2021 17:35:00 dt: 09/12/2021 20:46:00 DICTATING MD/COPIES TO: Nuris Mart MD COPIES MNE: YIN;
== END ==
PROVIDERS: PCP Family Medicine; Referring Provider Family Medicine; Visit Provider Family Medicine
DX: I77.89 Other specified disorders of arteries and arterioles (principal); R01.1 Cardiac murmur, unspecified; R06.00 Dyspnea, unspecified
CPT/HCPCS: 78452; 87635; 93016; 93017; 93018; A9502

== ENCOUNTER 2021-09-17 12:31 | Observation (INO) | payer MEDICARE, SELFPAY ==
[2021-09-17] VITALS (14 sets, daily range): BP systolic 135–184; BP diastolic 67–85; PULSE 70–91; RESP 16–25; TEMP 36.9–37.2; O2SAT 95–100; BMI 25.6
--- NOTE | 2021-09-17 12:42 | DI.CT.S_ITS ---
PROCEDURE: CT CERVICAL SPINE WO CON INDICATIONS: syncope/fall TECHNIQUE: Noncontrast 3 mm thick sections acquired from the skull base to the T4 level. Sagittal and coronal reformats were then constructed. For radiation dose reduction, the following was used: automated exposure control, adjustment of mA and/or kV according to patient size. COMPARISON: None. FINDINGS: Image quality: Excellent. Bones: Vertebral body height and alignment is maintained. There is reversal normal cervical lordosis related to degenerative disc disease in the mid to lower cervical spine. No evidence of fracture. 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 Craniovertebral relationships are normal. Moderate central stenosis at C5-6. Soft tissues: Prevertebral soft tissues are normal in thickness. No paravertebral hematomas. No apical pneumothoraces. IMPRESSION: Multilevel degenerative disc disease and arthropathy without fracture or traumatic malalignment Approved by: Shola Galvan M.D. on 09/17/2021 at 13:28
--- NOTE | 2021-09-17 12:42 | DI.CT.S_ITS ---
PROCEDURE: CT HEAD/BRAIN WO CON INDICATIONS: syncope/fall TECHNIQUE: Noncontrast 4.5 mm thick angled axial sections acquired from the foramen magnum to the vertex, with coronal and sagittal reformats. For radiation dose reduction, the following was used: automated exposure control, adjustment of mA and/or kV according to patient size. COMPARISON: [facility], CT, CT HEAD/BRAIN WO CON, 04/20/2019, 21:54. FINDINGS: Image quality: Metallic streak artifact from bilateral hearing implants limits image quality of multiple images CSF spaces: Basal cisterns are patent. No extra-axial fluid collections. Ventricles are normal in size and shape. Brain: No midline shift. No intracranial masses or hemorrhage. Bolanos-white matter interface is normal. Moderate cerebral and cerebellar volume loss with multifocal white matter chronic ischemic change noted. Skull and face: Calvarium and visualized facial bones are intact, without suspicious lesions. Right frontal scalp hematoma Sinuses: Right maxillary sinus mucosal thickening6 IMPRESSION: Right frontal scalp hematoma without skull fracture or large intracranial hemorrhage Metallic streak artifact from bilateral hearing aids limits multiple images of the study. Recommend follow-up CT brain after hearing aid removal. Approved by: Shola Galvan M.D. on 09/17/2021 at 13:10
--- NOTE | 2021-09-17 12:42 | DI.RAD.S_ITS ---
PROCEDURE: XR CHEST 1V INDICATIONS: altered mental status TECHNIQUE: One view of the chest was acquired. COMPARISON: [facility], CR, XR CHEST 1V, 04/20/2019, 21:42. FINDINGS: Surgical changes and devices: None. Lungs and pleura: Lungs are clear. No pleural effusions or pneumothorax. Mediastinum: Mediastinal contours appear normal. Heart size is normal. Bones and chest wall: No suspicious bony lesions. Overlying soft tissues appear unremarkable. IMPRESSION: No acute cardiopulmonary findings Approved by: Shola Galvan M.D. on 09/17/2021 at 13:34
[2021-09-17 12:52] LABS: INR 1.1 (0.9-1.3); Prothrombin Time 11.9 SECONDS (10.1-12.7)
[2021-09-17 12:53] LABS: Add Manual Diff / Slide Review NO; Basophils Absolute Auto 100 /uL (0-100); Eosinophils Absolute Auto 300 /uL (0-450); Eosinophils Percent Auto 4.6 % (2-4); Hematocrit 36.9 % (41-53); Hemoglobin 12.6 g/dL (13.5-17.5); Lymphocytes Absolute Auto 1900 /uL (1100-4500); Lymphocytes Percent Auto 32.5 % (25-40); Mean Corpuscular HGB Conc 34.1 % (30-36); Mean Corpuscular Hemoglobin 29.2 PG (26-34); Mean Corpuscular Volume 85.6 fL (80-100); Monocytes Absolute Auto 500 /uL (0-900); Neutrophils Absolute Auto 3000 /uL (1500-7000); Neutrophils Percent Auto 52.9 % (50-75); Platelet Count 197 X10^3/uL (150-400); Red Blood Cell Count 4.32 X10^6/uL (4.5-5.9); Red Cell Distribution Width 13.8 % (11.6-14.8); White Blood Cell Count 5.7 X10^3/uL (4.5-11.0)
[2021-09-17 12:59] LABS: Alanine Aminotransferase 31 IU/L (<50); Albumin Globulin Ratio 1.4 (1.0-2.8); Alkaline Phosphatase 52 U/L (38-126); Aspartate Aminotransferase 39 IU/L (17-59); BUN Creatinine Ratio 23.4 (6-22); Bilirubin Total 0.4 mg/dL (0.2-1.3); Blood Urea Nitrogen 22 mg/dL (9-20); Calcium 9.2 mg/dL (8.4-10.2); Carbon Dioxide 29 mmol/L (22-32); Chloride 103 mmol/L (98-107); Estimated Glomerular Filt Rate > 60 mL/min (>60); Globulin 2.8 g/dL (1.7-4.1); Glucose 101 mg/dL (80-110); HEMOLYSIS < 15 (0-50); Potassium 4.3 mmol/L (3.4-5.1); Sodium 136 mmol/L (137-145); Total Protein 6.8 g/dL (6.3-8.2)
--- NOTE | 2021-09-17 13:03 | ED.SYNCOPE ---
HPI - Syncope General Chief Complaint: Syncope Stated Complaint: Syncope, fall Time Seen by Provider: 09/17/21 12:39 History of Present Illness HPI narrative: Patient brought in by ambulance from home. For syncopal episode. Blood sugar 95. Patient does not recall event. states that they were moving [place] from the back porch to the driveway. states she are heard him fall and ran immediately to him. He was unresponsive. He was unconscious for about 2 or 3 minutes until EMS arrived. No seizure activity. No vomiting. No prior history of this happening before. However, about a month ago in [place] patient had near-syncope episode. He was very dizzy in the hotel room and fell on the bed. No injury. They thought maybe he was dehydrated. This morning they went for a walk and he was very short of breath which was unusual for him. No recent illness otherwise no cough cold congestion fever chills nausea vomiting diarrhea. No black or bloody stools. No prior history of arrhythmia or heart attack or stroke. No blood clots in legs or lungs before. No recent chest pain. As large contusion to the right forehead. Denies any neck pain. Patient is been eating and drinking without any difficulty. No fluid losses. The patient did have stress test recently in the past 3 weeks. Fast exam is negative [address] [address] Procedure Note Patient: Indra Purdy MR#: [id number] : 1945 Acct:[id number] Age/Sex: 76 / M ? Date of Service: 09/11/21 Provider:?Vaibhav Love MD Cardiac Stress Test Report Referral & Results Date Patient Seen: 09/12/21 Time Patient Seen: 08:45 Requesting provider: Donato Hidalgo Indication: Dyspnea Rest ECG: NSR Procedure Note: Today, following both written and verbal informed consent, the patient was exercised according to a standard Samuel protocol. The patient went for a total of 7 minutes 24 seconds achieving a maximum heart rate of 140 maximum systolic blood pressure of 186.? This is approximately 10.1 METs.? Exercise was terminated at this point because of fatigue. Patient was also given Cardiolite through a previously started Hep-Lock IV by the nuclear monitoring technician approximately 1 minute prior to the cessation of exercise. Normal hemodynamic response to exercise.? No signs or symptoms of angina.? Some wheezing.? Rapid recovery.? Rare PVCs.? No other rhythm or ST changes.? Excellent exercise capacity (FA I-25% on active scale). Impression: Low probability for ischemia.? Perfusion imaging pending.? Consider pulmonary function testing as a next step if symptoms persist. Please note: Actual ECG tracings can be found in the PACS system. Signed By:<Electronically signed by Vaibhav Love MD>? 09/12/21 0857 Related Data Home Medications Medication Instructions Recorded Confirmed Glucosamine Hydrochloride 500 mg PO Q DAY ##0 03/23/11 09/22/21 (#GLUCOSAMINE) ascorbic acid (vitamin C) 500 mg 1,000 mg PO QDAY ##0 07/31/12 09/22/21 tablet [employer]ics Dreamstation CPAP #1 [id number] 09/01/18 09/22/21 Vitamin D (with calcium) 1 tab PO DAILY 09/17/21 09/22/21 atorvastatin 40 mg tablet 20 mg PO DAILY 09/17/21 09/22/21 loratadine 10 mg tablet (Claritin) 10 mg PO DAILY 09/17/21 09/22/21 methylsulfonylmethane 500 mg mg PO DAILY 09/17/21 09/22/21 capsule metoprolol succinate 50 mg 50 mg PO DAILY 09/17/21 09/22/21 tablet,extended release 24 hr multivitamin with minerals 1 tab PO DAILY 09/17/21 09/22/21 paroxetine HCl 20 mg tablet 20 mg PO DAILY 09/17/21 09/22/21 zinc 1 tab PO DAILY 09/17/21 09/22/21 Previous Rx's Medication Instructions Recorded losartan 100 1 tab PO DAILY #90 tabs 08/14/21 mg-hydrochlorothiazide 12.5 mg tablet meclizine 12.5 mg tablet 25 mg PO TID PRN Vertigo #30 tabs 09/18/21 doxycycline hyclate 100 mg capsule 100 mg PO BID #14 caps 09/22/21 Allergies Allergy/AdvReac Type Severity Reaction Status Date / Time ibuprofen [IBUPROFEN] Allergy Intermediate HIVES Verified 11/10/20 09:25 Review of Systems Review of Systems Narrative: GENERAL: Denies chills, fatigue, malaise, fever, sweats. 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 Hay fever Hearing deficit Hepatic cyst Obstructive sleep apnea of adult Sleep apnea Vision disorder Surgical History Anesthesia Status post hernia repair Status post rotator cuff repair Family History Mother Heart disease Social History marital status: details: to Stephanie household members: spouse lives independently: Yes caregiver/support person: No 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 Contusion right forehead skin intact. Scalp nontender no crepitus or step-off. Nontender. EYES: Pupils equal round No scleral icterus. ENT: Mucous membranes moist. NECK: Trachea midline. No midline tenderness or step-off. Able to rotate head left and right and extend and flex neck without midline pain or tenderness. C-collar cleared clinically CARDIOVASCULAR: Regular rate and rhythm without murmurs strong bilateral carotid and radial pulses RESPIRATORY: Clear to auscultation. Breath sounds equal bilaterally. No wheezes, rales, or rhonchi. GASTROINTESTINAL: Abdomen soft, non-tender EXTREMITIES: No gross deformities. BACK: No flank tenderness. No midline tenderness or step-off of the thoracic or lumbar spine. Patient log-rolled to the right. NEURO: AOx3. Clear speech no facial droop light touch duct above face and hands with strong equal supervisor commissary production. Negative pronator drift. Strong bilateral straight leg raises. Patient not recall event. SKIN: Warm and dry PSYCH: Not anxious, is cooperative Initial Vital Signs Initial Vital Signs: Vital Signs Pulse Rate 75 09/17/21 12:34 Blood Pressure 163/77 H 09/17/21 12:34 Pulse Oximetry 99 09/17/21 12:34 Course Course Course Narrative: No new issues during course of stay Decision to Admit Date: 09/17/21 Decision to Admit time: 13:32 Orders Ordered: Discontinued Medications Acetaminophen (Acetaminophen 325 Mg Tablet) 650 mg PO Q6HR PRN PRN Reason: Fever/Mild Pain (1-3) Last Admin: 09/18/21 05:34 Dose: 650 mg Documented By: Admin: 09/17/21 19:30 Dose: 650 mg Documented By: ALTAGRACIA Ascorbic Acid (Ascorbic Acid 500 Mg Tablet) 1,000 mg PO DAILY [facility] Last Admin: 09/18/21 08:37 Dose: 1,000 mg Documented By: Admin: 09/17/21 19:29 Dose: Not Given Documented By: ALTAGRACIA Atorvastatin Calcium (Atorvastatin 20 Mg Tablet) 20 mg PO DAILY [facility] Last Admin: 09/18/21 08:36 Dose: 20 mg Documented By: PATT Hydrochlorothiazide (Hydrochlorothiazide 25 Mg Tablet) 12.5 mg PO DAILY [facility] Last Admin: 09/18/21 08:36 Dose: 12.5 mg Documented By: PATT Sodium Chloride (Normal Saline 0.9%) 500 mls @ 1,000 mls/hr IV BOLUS ONE Stop: 09/17/21 14:03 Last Infusion: 09/17/21 14:52 Dose: 0 mls/hr Documented By: Admin: 09/17/21 13:46 Dose: 1,000 mls/hr Documented By: JALEN Sodium Chloride (Normal Saline 0.9%) 1,000 mls @ 100 mls/hr IV CONT MERRITT Stop: 09/18/21 05:08 Last Infusion: 09/18/21 05:30 Dose: 0 mls/hr Documented By: Admin: 09/17/21 19:30 Dose: 100 mls/hr Documented By: TLS Losartan Potassium (Losartan 50 Mg Tablet) 100 mg PO DAILY [facility] Last Admin: 09/18/21 08:36 Dose: 100 mg Documented By: PATT Meclizine HCl (Meclizine Hcl 12.5 Mg Tablet) 25 mg PO NOW ONE Stop: 09/18/21 09:20 Last Admin: 09/18/21 09:44 Dose: 25 mg Documented By: PATT Meclizine HCl (Meclizine Hcl 12.5 Mg Tablet) 25 mg PO TID PRN PRN Reason: Vertigo Metoprolol Succinate (Metoprolol Er 50 Mg Tablet) 50 mg PO DAILY [facility] Last Admin: 09/18/21 08:36 Dose: 50 mg Documented By: PATT Ondansetron HCl (Ondansetron 4 Mg/2 Ml Inj) 4 mg IV NOW ONE Stop: 09/17/21 13:14 Last Admin: 09/17/21 13:17 Dose: 4 mg Documented By: SANDIP Paroxetine HCl (Paroxetine 20 Mg Tablet) 20 mg PO DAILY [facility] Last Admin: 09/18/21 08:36 Dose: 20 mg Documented By: PATT Tramadol HCl (Tramadol 50 Mg Tablet) 50 mg PO Q4H PRN PRN Reason: Pain, Moderate (4-6) Reevaluation(s) Reevaluation #1: Reviewed results with patient and . At this time feeling better. They do agree for admit for syncopal workup. Time: 15:52 Consultations Consultation #1: Spoke with hospitalist Dr. De La Paz, will admit Time: 16:05 Vital Signs Vital signs: Vital Signs - 8 hr 09/17/21 12:39 09/17/21 12:34 09/17/21 12:34 Temperature 98.4 F Pulse Rate 71 75 Respiratory Rate 16 Blood Pressure 163/77 H 163/77 H Pulse Oximetry 97 99 Oxygen Delivery Method Room Air 09/17/21 12:38 09/17/21 12:38 09/17/21 13:09 Temperature Pulse Rate 70 71 Respiratory Rate 20 20 Blood Pressure 164/77 H Pulse Oximetry 97 100 Oxygen Delivery Method 09/17/21 13:22 09/17/21 13:22 09/17/21 13:30 Temperature Pulse Rate 72 Respiratory Rate 25 H Blood Pressure 184/85 H 170/81 H Pulse Oximetry 100 Oxygen Delivery Method 09/17/21 13:30 09/17/21 14:30 09/17/21 14:31 Temperature Pulse Rate 71 79 Respiratory Rate 23 22 Blood Pressure 157/73 H Pulse Oximetry 100 98 Oxygen Delivery Method 09/17/21 14:31 09/17/21 15:00 09/17/21 15:00 Temperature Pulse Rate 78 80 Respiratory Rate 22 19 Blood Pressure 169/84 H Pulse Oximetry 98 Oxygen Delivery Method 09/17/21 15:30 09/17/21 15:30 09/17/21 16:00 Temperature Pulse Rate 80 89 Respiratory Rate 16 18 Blood Pressure 154/77 H Pulse Oximetry 95 Oxygen Delivery Method MDM - Syncope Differential Diagnosis Differential diagnosis: Likely syncope due to orthostatic hypotension, vasovagal syncope, complete atrioventricular block, subarachnoid hemorrhage, pulmonary embolism and dehydration Lab Data Result diagrams: 09/18/21 05:25 09/18/21 05:25 Labs: Lab Results 09/17/21 09/17/21 09/17/21 Range/Units 12:37 12:37 12:37 WBC 5.7 (4.5-11.0) X10^3/uL RBC 4.32 L (4.5-5.9) X10^6/uL Hgb 12.6 L (13.5-17.5) g/dL Hct 36.9 L (41-53) % MCV 85.6 (80-100) fL MCH 29.2 (26-34) PG MCHC 34.1 (30-36) % RDW 13.8 (11.6-14.8) % Plt Count 197 (150-400) X10^3/uL Neut % (Auto) 52.9 (50-75) % Lymph % (Auto) 32.5 (25-40) % Tripp % (Auto) 9.0 (3-14) % Eos % (Auto) 4.6 H (2-4) % Baso % (Auto) 1.0 (0-2) % Neut # (Auto) 3000 (7248-0502) /uL Lymph # (Auto) 1900 (5126-8599) /uL Tripp # (Auto) 500 (0-900) /uL Eos # (Auto) 300 (0-450) /uL Baso # (Auto) 100 (0-100) /uL PT 11.9 (10.1-12.7) SECONDS INR 1.1 (0.9-1.3) D-Dimer (<230) ng/mL Sodium 136 L (137-145) mmol/L Potassium 4.3 (3.4-5.1) mmol/L Chloride 103 (98-107) mmol/L Carbon Dioxide 29 (22-32) mmol/L BUN 22 H (9-20) mg/dL Creatinine 0.94 (0.66-1.25) mg/dL Estimated GFR > 60 (>60) mL/min BUN/Creatinine Ratio 23.4 H (6-22) Glucose 101 (80-110) mg/dL Calcium 9.2 (8.4-10.2) mg/dL Total Bilirubin 0.4 (0.2-1.3) mg/dL AST 39 (17-59) IU/L ALT 31 (<50) IU/L Alkaline Phosphatase 52 (38-126) U/L Total Creatine Kinase (55-170) U/L CK-MB (CK-2) CK-MB (CK-2) Rel Index Troponin I (0.01-0.034) ng/mL Total Protein 6.8 (6.3-8.2) g/dL Albumin 4.0 (3.5-5.0) g/dL Globulin 2.8 (1.7-4.1) g/dL Albumin/Globulin Ratio 1.4 (1.0-2.8) Urine Color Urine Appearance Urine pH (4.5-8.0) Ur Specific Dodge (1.000-1.035) Urine Protein (Negative) Urine Glucose (UA) (Negative) g/dL Urine Ketones (NEGATIVE) Urine Occult Blood (Negative) Urine Nitrate (Negative) Urine Bilirubin (NEGATIVE) Urine Urobilinogen (0.2) E.U./dL Ur Leukocyte Esterase (NEGATIVE) Urine RBC (0-5/HPF) Urine WBC (0-5/HPF) Ur Squamous Epith Cells (0-5/HPF) Urine Bacteria (None) Ur Culture Indicated? U Opiates 300ng/mL cut (Negative) Ur Oxycodone Screen (Negative) Urine Methadone Screen (Negative) Ur Barbiturates Screen (Negative) U Tricyclic Antidepress (Negative) Ur Phencyclidine Scrn (Negative) Ur Amphetamines Screen (Negative) U Methamphetamines Scrn (Negative) Ur MDMA Scrn (Ecstasy) (Negative) U Benzodiazepines Scrn (Negative) Urine Cocaine Screen (Negative) U Marijuana (THC) Screen (Negative) Ethyl Alcohol ( - 10) mg/dL SARS-CoV-2 (PCR) (Negative) 09/17/21 09/17/21 09/17/21 Range/Units 12:37 12:37 12:37 WBC (4.5-11.0) X10^3/uL RBC (4.5-5.9) X10^6/uL Hgb (13.5-17.5) g/dL Hct (41-53) % MCV (80-100) fL MCH (26-34) PG MCHC (30-36) % RDW (11.6-14.8) % Plt Count (150-400) X10^3/uL Neut % (Auto) (50-75) % Lymph % (Auto) (25-40) % Tripp % (Auto) (3-14) % Eos % (Auto) (2-4) % Baso % (Auto) (0-2) % Neut # (Auto) (9757-8116) /uL Lymph # (Auto) (7540-1506) /uL Tripp # (Auto) (0-900) /uL Eos # (Auto) (0-450) /uL Baso # (Auto) (0-100) /uL PT (10.1-12.7) SECONDS INR (0.9-1.3) D-Dimer 253 H (<230) ng/mL Sodium (137-145) mmol/L Potassium (3.4-5.1) mmol/L Chloride (98-107) mmol/L Carbon Dioxide (22-32) mmol/L BUN (9-20) mg/dL Creatinine (0.66-1.25) mg/dL Estimated GFR (>60) mL/min BUN/Creatinine Ratio (6-22) Glucose (80-110) mg/dL Calcium (8.4-10.2) mg/dL Total Bilirubin (0.2-1.3) mg/dL AST (17-59) IU/L ALT (<50) IU/L Alkaline Phosphatase (38-126) U/L Total Creatine Kinase 72 (55-170) U/L CK-MB (CK-2) TNP CK-MB (CK-2) Rel Index TNP Troponin I < 0.012 (0.01-0.034) ng/mL Total Protein (6.3-8.2) g/dL Albumin (3.5-5.0) g/dL Globulin (1.7-4.1) g/dL Albumin/Globulin Ratio (1.0-2.8) Urine Color Urine Appearance Urine pH (4.5-8.0) Ur Specific Dodge (1.000-1.035) Urine Protein (Negative) Urine Glucose (UA) (Negative) g/dL Urine Ketones (NEGATIVE) Urine Occult Blood (Negative) Urine Nitrate (Negative) Urine Bilirubin (NEGATIVE) Urine Urobilinogen (0.2) E.U./dL Ur Leukocyte Esterase (NEGATIVE) Urine RBC (0-5/HPF) Urine WBC (0-5/HPF) Ur Squamous Epith Cells (0-5/HPF) Urine Bacteria (None) Ur Culture Indicated? U Opiates 300ng/mL cut (Negative) Ur Oxycodone Screen (Negative) Urine Methadone Screen (Negative) Ur Barbiturates Screen (Negative) U Tricyclic Antidepress (Negative) Ur Phencyclidine Scrn (Negative) Ur Amphetamines Screen (Negative) U Methamphetamines Scrn (Negative) Ur MDMA Scrn (Ecstasy) (Negative) U Benzodiazepines Scrn (Negative) Urine Cocaine Screen (Negative) U Marijuana (THC) Screen (Negative) Ethyl Alcohol < 10 ( - 10) mg/dL SARS-CoV-2 (PCR) (Negative) 09/17/21 09/17/21 09/17/21 Range/Units 13:25 14:32 14:32 WBC (4.5-11.0) X10^3/uL RBC (4.5-5.9) X10^6/uL Hgb (13.5-17.5) g/dL Hct (41-53) % MCV (80-100) fL MCH (26-34) PG MCHC (30-36) % RDW (11.6-14.8) % Plt Count (150-400) X10^3/uL Neut % (Auto) (50-75) % Lymph % (Auto) (25-40) % Tripp % (Auto) (3-14) % Eos % (Auto) (2-4) % Baso % (Auto) (0-2) % Neut # (Auto) (4855-0738) /uL Lymph # (Auto) (4324-7883) /uL Tripp # (Auto) (0-900) /uL Eos # (Auto) (0-450) /uL Baso # (Auto) (0-100) /uL PT (10.1-12.7) SECONDS INR (0.9-1.3) D-Dimer (<230) ng/mL Sodium (137-145) mmol/L Potassium (3.4-5.1) mmol/L Chloride (98-107) mmol/L Carbon Dioxide (22-32) mmol/L BUN (9-20) mg/dL Creatinine (0.66-1.25) mg/dL Estimated GFR (>60) mL/min BUN/Creatinine Ratio (6-22) Glucose (80-110) mg/dL Calcium (8.4-10.2) mg/dL Total Bilirubin (0.2-1.3) mg/dL AST (17-59) IU/L ALT (<50) IU/L Alkaline Phosphatase (38-126) U/L Total Creatine Kinase (55-170) U/L CK-MB (CK-2) CK-MB (CK-2) Rel Index Troponin I (0.01-0.034) ng/mL Total Protein (6.3-8.2) g/dL Albumin (3.5-5.0) g/dL Globulin (1.7-4.1) g/dL Albumin/Globulin Ratio (1.0-2.8) Urine Color Yellow Urine Appearance Clear Urine pH 8.0 (4.5-8.0) Ur Specific Dodge 1.010 (1.000-1.035) Urine Protein Trace H (Negative) Urine Glucose (UA) Negative (Negative) g/dL Urine Ketones Trace H (NEGATIVE) Urine Occult Blood Negative (Negative) Urine Nitrate Negative (Negative) Urine Bilirubin Negative (NEGATIVE) Urine Urobilinogen 0.2 (0.2) E.U./dL Ur Leukocyte Esterase Negative (NEGATIVE) Urine RBC 0-1/hpf (0-5/HPF) Urine WBC 0-1/hpf (0-5/HPF) Ur Squamous Epith Cells 0-1 /hpf (0-5/HPF) Urine Bacteria None seen (None) Ur Culture Indicated? Cult not indicated U Opiates 300ng/mL cut Negative (Negative) Ur Oxycodone Screen Negative (Negative) Urine Methadone Screen Negative (Negative) Ur Barbiturates Screen Negative (Negative) U Tricyclic Antidepress Negative (Negative) Ur Phencyclidine Scrn Negative (Negative) Ur Amphetamines Screen Negative (Negative) U Methamphetamines Scrn Negative (Negative) Ur MDMA Scrn (Ecstasy) Negative (Negative) U Benzodiazepines Scrn Negative (Negative) Urine Cocaine Screen Negative (Negative) U Marijuana (THC) Screen Positive H (Negative) Ethyl Alcohol ( - 10) mg/dL SARS-CoV-2 (PCR) Negative (Negative) Imaging Data CT scan - abdomen/pelvis: Radiologist's Impression: [address] [address] [address] Scan Report Signed Patient: Indra Purdy MR#: [id number] : 1945 Acct:[id number] Age/Sex: 76 / M Date of Service: 09/17/21 Loc: ED Accession Number: [id number] ?? Procedure: CT abdomen pelvis w con Ordering Provider: Bogdan Walker MD PROCEDURE:? CT ABDOMEN PELVIS W CON ? INDICATIONS:? abdominal pain ? TECHNIQUE:? After the administration of intravenous contrast, axial sections acquired from the lung bases to the pubic symphysis.? Coronal and sagittal reformats were performed.? For radiation dose reduction, the following was used:? automated exposure control, adjustment of mA and/or kV according to patient size.? ? COMPARISON:? None. ? FINDINGS: ? Lower thorax: The lung bases are clear.? Heart size normal.? No hiatal hernia. ? Liver:? Multiple hepatic cysts measure up to 4.2 cm intrahepatic biliary ductal dilatation may related to mass effect from cystic structures ? Biliary system:? No calcified cholelithiasis or pericholecystic inflammation.? No intra or extrahepatic bile duct dilatation. ? Pancreas:? Unremarkable without mass or inflammation evident. ? Spleen:? Normal in size and density. ? Adrenals:? Normal morphology and density. ? Reproductive system:? Prostatic hypertrophy elevates the bladder floor.? ? Urinary system:? Normal renal size and attenuation.? Bilateral renal cysts measure up to 3.8 cm on the right No renal calculi, hydronephrosis, or solid mass present.? Urinary bladder unremarkable. ? Gastrointestinal system:? The bowel is unremarkable without evidence of bowel obstruction or inflammation. The stomach appears unremarkable.? Moderate fecal debris in the right and transverse colon ? Appendix:? No findings to suggest acute appendicitis. ? Peritoneal spaces:? No mesenteric or retroperitoneal adenopathy.? No free air.? No free fluid.? ? Vasculature:? The IVC, aorta and iliac vasculature are unremarkable. ? Abdominal wall:? Evidence of prior right inguinal hernia repair.? No evidence of recurrence or residual hernia. ? Musculoskeletal:? Normal bone mineralization.? Degenerative disc disease and arthropathy noted in lower lumbar spine.? No acute fractures.? ? IMPRESSION: ? 1. Multiple hepatic cysts are associated with intrahepatic biliary ductal dilatation in the left hepatic lobe.? Consider follow-up nonemergent hepatic protocol MRI evaluation ? 2. Bilateral renal cysts without hydronephrosis. ? 3. Moderate fecal debris the right and transverse colon.? No obstruction.? Approved by: Shola Galvan M.D. on 09/17/2021 at 14:23? CT scan - chest: Radiologist's Impression: [place] [address] CT Scan Report Signed Patient: Indra Purdy MR#: [id number] : 1945 Acct:[id number] Age/Sex: 76 / M Date of Service: 09/17/21 Loc: ED Accession Number: [id number] ?? Procedure: CT angio chest PE protocol Ordering Provider: Bogdan Walker MD PROCEDURE:? CT ANGIO CHEST PE PROTOCOL ? INDICATIONS:? Syncope ? TECHNIQUE:? After the administration of intravenous contrast, 2 mm thick sections acquired from the pulmonary apices to the posterior costophrenic angles.? For radiation dose reduction, the following was used:? automated exposure control, adjustment of mA and/or kV according to patient size.? ? COMPARISON:? None. ? FINDINGS:? Image quality:? Excellent.? ? Pulmonary arteries:? Pulmonary arteries are normal in size, and demonstrate no intraluminal filling defects to suggest central pulmonary embolism.? ? Lungs and pleura:? Small 3 mm nodules noted in the left lower lobe on image 5/237.? No pleural effusions or pneumothorax.? Central and peripheral airways are patent.? Nonspecific dependent bibasilar atelectasis ? Mediastinum:? Heart size is normal, without pericardial effusion.? No mediastinal or hilar adenopathy.? Thoracic aorta is normal in caliber and enhancement.? Esophagus is normal in caliber, without hiatal hernia.? ? Bones and chest wall:? No suspicious bony lesions.? Ribs and thoracic spine appear intact throughout.? Thyroid gland unremarkable.? No axillary or supraclavicular adenopathy.? ? Abdomen:? Hepatic cysts and left hepatic biliary ductal dilatation noted.? Small hiatal hernia present. ? IMPRESSION:? ? No evidence of pulmonary embolism, aortic dissection or aneurysm. ? Small 3 mm nodules noted in the left lower lobe.? Consider 12 month follow-up to assess stability. ? Dependent nonspecific bibasilar atelectasis ? ? Approved by: Shola Galvan M.D. on 09/17/2021 at 14:30? CT scan - head: Radiologist's Impression: [address] [address] [address] Scan Report Signed Patient: Indra Purdy MR#: [id number] : 1945 Acct:[id number] Age/Sex: 76 / M Date of Service: 09/17/21 Loc: ED Accession Number: [id number] ?? Procedure: CT head/brain wo con Ordering Provider: Bogdan Walker MD PROCEDURE:? CT HEAD/BRAIN WO CON ? INDICATIONS:? syncope/fall ? TECHNIQUE:? Noncontrast 4.5 mm thick angled axial sections acquired from the foramen magnum to the vertex, with coronal and sagittal reformats.? For radiation dose reduction, the following was used:? automated exposure control, adjustment of mA and/or kV according to patient size.? ? COMPARISON:? [facility], CT, CT HEAD/BRAIN WO CON, 04/20/2019, 21:54. ? FINDINGS:? Image quality:? Metallic streak artifact from bilateral hearing implants limits image quality of multiple images ? CSF spaces:? Basal cisterns are patent.? No extra-axial fluid collections.? Ventricles are normal in size and shape.? ? Brain:? No midline shift.? No intracranial masses or hemorrhage.? Bolanos-white matter interface is normal.? Moderate cerebral and cerebellar volume loss with multifocal white matter chronic ischemic change noted. ? Skull and face:? Calvarium and visualized facial bones are intact, without suspicious lesions.? Right frontal scalp hematoma ? Sinuses:? Right maxillary sinus mucosal thickening6 ? IMPRESSION:? ? Right frontal scalp hematoma without skull fracture or large intracranial hemorrhage ? Metallic streak artifact from bilateral hearing aids limits multiple images of the study. ?Recommend follow-up CT brain after hearing aid removal.? ? ? Approved by: Shola Galvan M.D. on 09/17/2021 at 13:10? Chest x-ray: Radiologist's Impression: [address] [address] XRay Report Signed Patient: Indra Purdy MR#: [id number] : 1945 Acct:[id number] Age/Sex: 76 / M Date of Service: 09/17/21 Loc: ED Accession Number: [id number] ?? Procedure: XR chest 1V Ordering Provider: Bogdan Walker MD PROCEDURE:? XR CHEST 1V ? INDICATIONS:? altered mental status ? TECHNIQUE:? One view of the chest was acquired.? ? COMPARISON:? [facility], , XR CHEST 1V, 04/20/2019, 21:42. ? FINDINGS:? ? Surgical changes and devices:? None.? ? Lungs and pleura:? Lungs are clear.? No pleural effusions or pneumothorax.? ? Mediastinum:? Mediastinal contours appear normal.? Heart size is normal.? ? Bones and chest wall:? No suspicious bony lesions.? Overlying soft tissues appear unremarkable.? ? IMPRESSION:? No acute cardiopulmonary findings ? ? ? Approved by: Shola Galvan M.D. on 09/17/2021 at 13:34? CT - cervical spine: Radiologist's Impression: [address] [address] [address] Scan Report Signed Patient: Indra Purdy MR#: [id number] : 1945 Acct:[id number] Age/Sex: 76 / M Date of Service: 09/17/21 Loc: ED Accession Number: [id number] ?? Procedure: CT cervical spine wo con Ordering Provider: Bogdan Walker MD PROCEDURE:? CT CERVICAL SPINE WO CON ? INDICATIONS:? syncope/fall ? TECHNIQUE:? Noncontrast 3 mm thick sections acquired from the skull base to the T4 level.? Sagittal and coronal reformats were then constructed.? For radiation dose reduction, the following was used:? automated exposure control, adjustment of mA and/or kV according to patient size.? ? COMPARISON:? None. ? FINDINGS:? Image quality:? Excellent.? ? Bones:? Vertebral body height and alignment is maintained.? There is reversal normal cervical lordosis related to degenerative disc disease in the mid to lower cervical spine.? No evidence of fracture.? Hypertrophic facet joints result in ankylosis at C2-3 and C3-4.? Craniovertebral relationships are normal.? ? Moderate central stenosis at C5-6. ? Soft tissues:? Prevertebral soft tissues are normal in thickness.? No paravertebral hematomas.? No apical pneumothoraces.? ? ? IMPRESSION:? ? Multilevel degenerative disc disease and arthropathy without fracture or traumatic malalignment ? Approved by: Shola Galvan M.D. on 09/17/2021 at 13:28? ECG Data Interpretation: Normal sinus rhythm rate [address] elevation or depression MDM Narrative Medical decision making narrative: Appropriate for admission. Patient has had evolving symptoms for the past month. Requiring workup immediately for syncope. Spoke with hospitalist and family and agree for admit. Differential diagnosis includes but not limited to arrhythmia/PE/dissection/dehydration/stroke. However, at this time given symptoms through the past 4 weeks likely not stroke. Discharge Plan Departure Patient Disposition: Admitted as Observation Clinical Impression: Syncope and collapse Admit Date/Time: 09/17/21 16:04 Admit Provider: Maribel De La Paz
[2021-09-17] MEDS: ONDANSETRON 4 MG/2 ML INJ IV (13:17)
[2021-09-17 13:22] LABS: D Dimer 253 ng/mL (<230)
[2021-09-17 13:23] LABS: Ethanol (ETOH) < 10 mg/dL
[2021-09-17 13:25] LABS: Creatine Kinase 72 U/L (55-170)
--- NOTE | 2021-09-17 13:34 | DI.CT.S_ITS ---
PROCEDURE: CT ANGIO CHEST PE PROTOCOL INDICATIONS: Syncope TECHNIQUE: After the administration of intravenous contrast, 2 mm thick sections acquired from the pulmonary apices to the posterior costophrenic angles. For radiation dose reduction, the following was used: automated exposure control, adjustment of mA and/or kV according to patient size. COMPARISON: None. FINDINGS: Image quality: Excellent. Pulmonary arteries: Pulmonary arteries are normal in size, and demonstrate no intraluminal filling defects to suggest central pulmonary embolism. Lungs and pleura: Small 3 mm nodules noted in the left lower lobe on image 5/237. No pleural effusions or pneumothorax. Central and peripheral airways are patent. Nonspecific dependent bibasilar atelectasis Mediastinum: Heart size is normal, without pericardial effusion. No mediastinal or hilar adenopathy. Thoracic aorta is normal in caliber and enhancement. Esophagus is normal in caliber, without hiatal hernia. Bones and chest wall: No suspicious bony lesions. Ribs and thoracic spine appear intact throughout. Thyroid gland unremarkable. No axillary or supraclavicular adenopathy. Abdomen: Hepatic cysts and left hepatic biliary ductal dilatation noted. Small hiatal hernia present. IMPRESSION: No evidence of pulmonary embolism, aortic dissection or aneurysm. Small 3 mm nodules noted in the left lower lobe. Consider 12 month follow-up to assess stability. Dependent nonspecific bibasilar atelectasis Approved by: Shola Galvan M.D. on 09/17/2021 at 14:30
[2021-09-17 13:37] LABS: Troponin I < 0.012 ng/mL (0.01-0.034)
--- NOTE | 2021-09-17 13:40 | DI.CT.S_ITS ---
PROCEDURE: CT ABDOMEN PELVIS W CON INDICATIONS: abdominal pain TECHNIQUE: After the administration of intravenous contrast, axial sections acquired from the lung bases to the pubic symphysis. Coronal and sagittal reformats were performed. For radiation dose reduction, the following was used: automated exposure control, adjustment of mA and/or kV according to patient size. COMPARISON: None. FINDINGS: Lower thorax: The lung bases are clear. Heart size normal. No hiatal hernia. Liver: Multiple hepatic cysts measure up to 4.2 cm intrahepatic biliary ductal dilatation may related to mass effect from cystic structures Biliary system: No calcified cholelithiasis or pericholecystic inflammation. No intra or extrahepatic bile duct dilatation. Pancreas: Unremarkable without mass or inflammation evident. Spleen: Normal in size and density. Adrenals: Normal morphology and density. Reproductive system: Prostatic hypertrophy elevates the bladder floor. Urinary system: Normal renal size and attenuation. Bilateral renal cysts measure up to 3.8 cm on the right No renal calculi, hydronephrosis, or solid mass present. Urinary bladder unremarkable. Gastrointestinal system: The bowel is unremarkable without evidence of bowel obstruction or inflammation. The stomach appears unremarkable. Moderate fecal debris in the right and transverse colon Appendix: No findings to suggest acute appendicitis. Peritoneal spaces: No mesenteric or retroperitoneal adenopathy. No free air. No free fluid. Vasculature: The IVC, aorta and iliac vasculature are unremarkable. Abdominal wall: Evidence of prior right inguinal hernia repair. No evidence of recurrence or residual hernia. Musculoskeletal: Normal bone mineralization. Degenerative disc disease and arthropathy noted in lower lumbar spine. No acute fractures. IMPRESSION: 1. Multiple hepatic cysts are associated with intrahepatic biliary ductal dilatation in the left hepatic lobe. Consider follow-up nonemergent hepatic protocol MRI evaluation 2. Bilateral renal cysts without hydronephrosis. 3. Moderate fecal debris the right and transverse colon. No obstruction. Approved by: Shola Galvan M.D. on 09/17/2021 at 14:23
[2021-09-17] MEDS: SODIUM CHLORIDE 0.9% 500 ML 1000 ML IV (13:46)
[2021-09-17 14:01] LABS: COVID19 -Nasal RAPID Negative (Negative)
[2021-09-17 14:55] LABS: Appearance Urine UA CLEAR; Bilirubin Urine UA NEGATIVE (NEGATIVE); Color Urine UA YELLOW; Glucose Urine UA NEGATIVE (Negative); Ketones Urine UA TRACE (NEGATIVE); Leukocyte Esterase Urine UA NEGATIVE (NEGATIVE); Nitrite Urine UA NEGATIVE (Negative); Occult Blood Urine UA NEGATIVE (Negative); Protein Urine UA TRACE (Negative); Urobilinogen Urine UA 0.2 E.U./dL (0.2)
[2021-09-17 15:15] LABS: UR Morphine/Opiate cutoff 300 Negative (Negative); Ur Creatinine Normal (Normal); Ur Specific Gravity Normal (Normal); Urine Amphetamines Negative (Negative); Urine Barbiturates Negative (Negative); Urine Benzodiazepines Negative (Negative); Urine Cocaine Negative (Negative); Urine MDMA Negative (Negative); Urine Methadone Negative (Negative); Urine Methamphetamines Negative (Negative); Urine Oxycodone Negative (Negative); Urine Phencyclidine Negative (Negative); Urine Tetrahydrocannabinol Positive (Negative); Urine Tricyclic Antidepressant Negative (Negative); Urine pH Normal (Normal)
[2021-09-17 15:16] LABS: Bacteria Urine None Seen; Culture Indicated Urine Cult Not Indicated; RBC Urine 0-1/HPF (0-5/HPF); Squamous Epithelial Cell Urine 0-1 /HPF (0-5/HPF); WBC Urine 0-1/HPF (0-5/HPF)
--- NOTE | 2021-09-17 18:34 | P.HP_ITS ---
History of Present Illness History of Present Illness Date Patient Seen: 09/17/21 Chief complaint: Syncope, fall Narrative: Gnvvhmr-vvojg-hwqq-old gentleman with hyperlipidemia, depression, hypertension, hypertension, ascending aortic enlargement, obstructive sleep apnea on CPAP who presented to the emergency department via EMS after a syncopal episode. Patient was at his svzoyk-cz-ast's home in [place] approximately 2-3 weeks ago for a wedding. They were in the fxkdqe-sx-jol's home when he suddenly told his he needed to lay down. She attempted to help him to bed but instead he crumpled to the floor. He was not injured. EMS was called and advised that he was dehydrated. Patient felt he probably was dehydrated and ultimately increased his fluid intake and returned home after the wedding. He had been doing fine in his usual state of health until this morning when seen is went on a 1 hour walk. He states he was walking up a hill, became lightheaded and felt the need to sit down. His states he appeared to be breathing heavily, she noted he was pale and appeared mildly clammy. He states he was not short of breath, but was lightheaded. He denies any nausea. After sitting for a few minutes, the lightheadedness when away and he ultimately got back in the car in the return home. Approximately 30 minutes L his asked him to assist with moving end user support specialist stones from inside the house out to the driveway. He declined but ultimately she asked again and he acquiesced. He states he used a hand truck to move the pavers from inside out to the driveway. He then had to lift them from the hand truck into a stack in the driveway. He states he was in the process of stacking 1 and bent over. His states he subsequently fell over with a loud thud. He was unresponsive for approximately 2 minutes. She noted he had a contusion on his forehead. EMS was contacted and came out to re-evaluate him. Blood sugar was 95. He remained confused on route to the ER and told the EMS team that his son is a windscreen fitter and also told them that we are in [place]. states they moved from [place] years ago and their son is retired now lives in [place]. While in the emergency department he fully cleared and has returned to baseline cognitive status. Currently, patient complains of a mild headache and pain at the site of his hematoma. He denies any chest pressure, chest pain, chest tightness, shortness of breath, nausea, abdominal pain, neck pain. He denies any injuries at the time of his fall. Patient recently saw his primary care provider for his routine physical exam. He underwent a nuclear stress test which was low risk. He had an echocardiogram in December of 2020 secondary to his hypertension and a cardiac murmur. His EF was 60-65%. He had [id number] aortic regurgitation, trace mitral regurgitation, and trace tricuspid regurgitation. 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 Drinks an occasional alcoholic beverage Meds Home Medications and Allergies Home Medications Medication Instructions Recorded Confirmed Type CA PANTOTHENATE/FOLIC ACID/VIT 1 tab PO Q DAY ##0 03/23/11 08/14/21 History (MULTIVITAMIN) Fish Oil (#FISH OIL) 1 iu PO Q DAY ##0 03/23/11 08/14/21 History Glucosamine Hydrochloride 500 mg PO Q DAY ##0 03/23/11 09/17/21 History (#GLUCOSAMINE) ascorbic acid (vitamin C) 500 mg 1,000 mg PO QDAY ##0 07/31/12 09/17/21 History tablet [employer] Dream[employer] CPAP #1 ea 09/01/18 08/14/21 History losartan 100 1 tab PO DAILY #90 tabs 08/14/21 09/17/21 Rx mg-hydrochlorothiazide 12.5 mg tablet atorvastatin 40 mg tablet 20 mg PO DAILY 09/17/21 09/17/21 History metoprolol succinate 50 mg 50 mg PO DAILY 09/17/21 09/17/21 History tablet,extended release 24 hr paroxetine HCl 20 mg tablet 20 mg PO DAILY 09/17/21 09/17/21 History Allergies Allergy/AdvReac Type Severity Reaction Status Date / Time ibuprofen [IBUPROFEN] Allergy Intermediate HIVES Verified 11/10/20 09:25 Review of Systems Review of Systems Narrative: All other systems were reviewed negative Exam Vital Signs (past 8 hours): - 09/17/21 12:39 09/17/21 12:34 09/17/21 12:34 Temperature 98.4 F Pulse Rate 71 75 Pulse Rate [Orthostatic Lying] Pulse Rate [Orthostatic Sitting] Pulse Rate [Orthostatic Standing] Respiratory Rate 16 Blood Pressure 163/77 H 163/77 H Blood Pressure [Orthostatic Lying] Blood Pressure [Orthostatic Sitting] Blood Pressure [Orthostatic Standing] Pulse Oximetry 97 99 Oxygen Delivery Method Room Air 09/17/21 12:38 09/17/21 12:38 09/17/21 13:09 Temperature Pulse Rate 70 71 Pulse Rate [Orthostatic Lying] Pulse Rate [Orthostatic Sitting] Pulse Rate [Orthostatic Standing] Respiratory Rate 20 20 Blood Pressure 164/77 H Blood Pressure [Orthostatic Lying] Blood Pressure [Orthostatic Sitting] Blood Pressure [Orthostatic Standing] Pulse Oximetry 97 100 Oxygen Delivery Method 09/17/21 13:22 09/17/21 13:22 09/17/21 13:30 Temperature Pulse Rate 72 Pulse Rate [Orthostatic Lying] Pulse Rate [Orthostatic Sitting] Pulse Rate [Orthostatic Standing] Respiratory Rate 25 H Blood Pressure 184/85 H 170/81 H Blood Pressure [Orthostatic Lying] Blood Pressure [Orthostatic Sitting] Blood Pressure [Orthostatic Standing] Pulse Oximetry 100 Oxygen Delivery Method 09/17/21 13:30 09/17/21 14:30 09/17/21 14:31 Temperature Pulse Rate 71 79 Pulse Rate [Orthostatic Lying] Pulse Rate [Orthostatic Sitting] Pulse Rate [Orthostatic Standing] Respiratory Rate 23 22 Blood Pressure 157/73 H Blood Pressure [Orthostatic Lying] Blood Pressure [Orthostatic Sitting] Blood Pressure [Orthostatic Standing] Pulse Oximetry 100 98 Oxygen Delivery Method 09/17/21 14:31 09/17/21 15:00 09/17/21 15:00 Temperature Pulse Rate 78 80 Pulse Rate [Orthostatic Lying] Pulse Rate [Orthostatic Sitting] Pulse Rate [Orthostatic Standing] Respiratory Rate 22 19 Blood Pressure 169/84 H Blood Pressure [Orthostatic Lying] Blood Pressure [Orthostatic Sitting] Blood Pressure [Orthostatic Standing] Pulse Oximetry 98 Oxygen Delivery Method 09/17/21 15:30 09/17/21 15:30 09/17/21 16:00 Temperature Pulse Rate 80 89 Pulse Rate [Orthostatic Lying] Pulse Rate [Orthostatic Sitting] Pulse Rate [Orthostatic Standing] Respiratory Rate 16 18 Blood Pressure 154/77 H Blood Pressure [Orthostatic Lying] Blood Pressure [Orthostatic Sitting] Blood Pressure [Orthostatic Standing] Pulse Oximetry 95 Oxygen Delivery Method 09/17/21 16:30 09/17/21 18:24 Temperature Pulse Rate 85 Pulse Rate [Orthostatic Lying] 84 Pulse Rate [Orthostatic Sitting] 87 Pulse Rate [Orthostatic Standing] 91 H Respiratory Rate 17 Blood Pressure Blood Pressure [Orthostatic Lying] 147/74 H Blood Pressure [Orthostatic Sitting] 145/84 H Blood Pressure [Orthostatic Standing] 142/81 H Pulse Oximetry 96 Oxygen Delivery Method Oxygen Delivery Method Room Air Narrative Exam Narrative: GEN: Elderly male, very pleasant, Alert and oriented x3, no acute distress HEENT: Normocephalic, face symmetric, ecchymosis and swelling over the right forehead and eyebrow, pupils equal round reactive to light, extraocular movements intact, sclerae anicteric, conjunctiva clear, nares patent, oropharynx reveals an intact soft and hard palate with moist mucous membranes, dentition is fair NECK: Supple, no lymphadenopathy, thyroid without enlargement or nodularity, carotids no bruits CHEST: Respiratory excursions symmetric, clear to auscultation bilaterally CV: Regular rate and rhythm, no murmurs, rubs, gallops, PMI nondisplaced ABD: Soft, nontender, nondistended, bowel sounds present in all 4 quadrants, no organomegaly or masses appreciated EXTR: Warm, well perfused, no clubbing/cyanosis/edema SKIN: Warm and dry, without rash NEURO: Alert and oriented x3, cranial nerves 2 through 12 are intact and symmetric bilaterally, grossly intact PSYCH: Mood and affect is within normal limits, judgment and insight are appropriate Objective ECG Impression: Normal sinus rhythm without acute changes Labs Result Diagrams: 09/17/21 12:37 09/17/21 12:37 Labs: Laboratory Results - last 24 hr 09/17/21 09/17/21 09/17/21 12:37 12:37 12:37 WBC 5.7 RBC 4.32 L Hgb 12.6 L Hct 36.9 L MCV 85.6 MCH 29.2 MCHC 34.1 RDW 13.8 Plt Count 197 Neut % (Auto) 52.9 Lymph % (Auto) 32.5 Wetzel % (Auto) 9.0 Eos % (Auto) 4.6 H Baso % (Auto) 1.0 Neut # (Auto) 3000 Lymph # (Auto) 1900 Wetzel # (Auto) 500 Eos # (Auto) 300 Baso # (Auto) 100 PT 11.9 INR 1.1 D-Dimer Sodium 136 L Potassium 4.3 Chloride 103 Carbon Dioxide 29 BUN 22 H Creatinine 0.94 Estimated GFR > 60 BUN/Creatinine Ratio 23.4 H Glucose 101 Calcium 9.2 Total Bilirubin 0.4 AST 39 ALT 31 Alkaline Phosphatase 52 Total Creatine Kinase CK-MB (CK-2) CK-MB (CK-2) Rel Index Troponin I Total Protein 6.8 Albumin 4.0 Globulin 2.8 Albumin/Globulin Ratio 1.4 Urine Color Urine Appearance Urine pH Ur Specific [place] Urine Protein Urine Glucose (UA) Urine Ketones Urine Occult Blood Urine Nitrate Urine Bilirubin Urine Urobilinogen Ur Leukocyte Esterase Urine RBC Urine WBC Ur Squamous Epith Cells Urine Bacteria Ur Culture Indicated? U Opiates 300ng/mL cut Ur Oxycodone Screen Urine Methadone Screen Ur Barbiturates Screen U Tricyclic Antidepress Ur Phencyclidine Scrn Ur Amphetamines Screen U Methamphetamines Scrn Ur MDMA Scrn (Ecstasy) U Benzodiazepines Scrn Urine Cocaine Screen U Marijuana (THC) Screen Ethyl Alcohol SARS-CoV-2 (PCR) 09/17/21 09/17/21 09/17/21 12:37 12:37 12:37 WBC RBC Hgb Hct MCV MCH MCHC RDW Plt Count Neut % (Auto) Lymph % (Auto) [place]zel % (Auto) Eos % (Auto) Baso % (Auto) Neut # (Auto) Lymph # (Auto) Wetzel # (Auto) Eos # (Auto) Baso # (Auto) PT INR D-Dimer 253 H Sodium Potassium Chloride Carbon Dioxide BUN Creatinine Estimated GFR BUN/Creatinine Ratio Glucose Calcium Total Bilirubin AST ALT Alkaline Phosphatase Total Creatine Kinase 72 CK-MB (CK-2) TNP CK-MB (CK-2) Rel Index TNP Troponin I < 0.012 Total Protein Albumin Globulin Albumin/Globulin Ratio Urine Color Urine Appearance Urine pH Ur Specific [place] Urine Protein Urine Glucose (UA) Urine Ketones Urine Occult Blood Urine Nitrate Urine Bilirubin Urine Urobilinogen Ur Leukocyte Esterase Urine RBC Urine WBC Ur Squamous Epith Cells Urine Bacteria Ur Culture Indicated? U Opiates 300ng/mL cut Ur Oxycodone Screen Urine Methadone Screen Ur Barbiturates Screen U Tricyclic Antidepress Ur Phencyclidine Scrn Ur Amphetamines Screen U Methamphetamines Scrn Ur MDMA Scrn (Ecstasy) U Benzodiazepines Scrn Urine Cocaine Screen U Marijuana (THC) Screen Ethyl Alcohol < 10 SARS-CoV-2 (PCR) 09/17/21 09/17/21 09/17/21 13:25 14:32 14:32 WBC RBC Hgb Hct MCV MCH MCHC RDW Plt Count Neut % (Auto) Lymph % (Auto) [place]zel % (Auto) Eos % (Auto) Baso % (Auto) Neut # (Auto) Lymph # (Auto) [place]zel # (Auto) Eos # (Auto) Baso # (Auto) PT INR D-Dimer Sodium Potassium Chloride Carbon Dioxide BUN Creatinine Estimated GFR BUN/Creatinine Ratio Glucose Calcium Total Bilirubin AST ALT Alkaline Phosphatase Total Creatine Kinase CK-MB (CK-2) CK-MB (CK-2) Rel Index Troponin I Total Protein Albumin Globulin Albumin/Globulin Ratio Urine Color Yellow Urine Appearance Clear Urine pH 8.0 Ur Specific [place] 1.010 Urine Protein Trace H Urine Glucose (UA) Negative Urine Ketones Trace H Urine Occult Blood Negative Urine Nitrate Negative Urine Bilirubin Negative Urine Urobilinogen 0.2 Ur Leukocyte Esterase Negative Urine RBC 0-1/hpf Urine WBC 0-1/hpf Ur Squamous Epith Cells 0-1 /hpf Urine Bacteria None seen Ur Culture Indicated? Cult not indicated U Opiates 300ng/mL cut Negative Ur Oxycodone Screen Negative Urine Methadone Screen Negative Ur Barbiturates Screen Negative U Tricyclic Antidepress Negative Ur Phencyclidine Scrn Negative Ur Amphetamines Screen Negative U Methamphetamines Scrn Negative Ur MDMA Scrn (Ecstasy) Negative U Benzodiazepines Scrn Negative Urine Cocaine Screen Negative U Marijuana (THC) Screen Positive H Ethyl Alcohol SARS-CoV-2 (PCR) Negative Assessment & Plan Assessment & Plan narrative: 1. Syncope Patient presents with syncope and presyncopal symptoms of the last several weeks. He has had an outpatient nuclear stress test which was low risk. He has had an echocardiogram 9 months ago which revealed only mild to moderate aortic regurgitation. His EF and ventricular function was normal. Head CT was performed and did not reveal any acute abnormalities with the exception of a right frontal scalp hematoma. There is no intracranial hemorrhage. Chest x-ray was negative. Cervical spine CT revealed multilevel degenerative disc disease and arthropathy but no acute injury. CT pulmonary angiogram was performed which revealed no evidence of PE, aortic dissection, or aneurysm. Abdominal pelvic CT was done which revealed multiple hepatic cysts associated with intrahepatic ductal dilatation in the left hepatic lobe. Recommendation for considering follow-up with non emergent hepatic protocol MRI for evaluation. There also bilateral renal cysts without hydronephrosis. At this time, patient will be admitted under observation status. Will place on telemetry to monitor for bradycardia or arrhythmia. Will obtain a carotid ultrasound to rule out stenosis. Unless he has recurrent symptoms, will defer an echocardiogram for now. Will obtain a TSH as hypothyroidism can cause syncope. Orthostatic vital signs have been requested as he is on metoprolol. If no obvious etiology is identified, we will work towards obtaining an outpatient ZIO Patch to further evaluate for causes of syncope. No evidence of infection or cardiac ischemia. 2. Obstructive sleep apnea to bring his home CPAP unit 3. Right frontal hematoma Monitor for concussive and post concussive symptoms 4. Hypertension Resume his usual antihypertensives. Blood pressure is mildly hypertensive. 5. Depression Resume his usual home medication 6. Hyperlipidemia Resume usual home medication 7. Ascending aortic enlargement Chest CT did not reveal any evidence of aneurysm or dissection 8. Biliary dilatation in the left hepatic lobe with associated hepatic cysts Recommend outpatient MRI for further evaluation. No evidence of obstruction by labs. Clinically he is asymptomatic. Code status Full Prophylaxis Low Russell score Disposition Admitted under observation status. Anticipate discharge home tomorrow. Time Spent With Patient Critical Care time: I spent a total of [] minutes of critical care time on this patient's care today; this time is exclusive of procedural time. Quality VTE Deep Vein Thrombosis/Pulmonary Embolism Present on Admission: No
--- NOTE | 2021-09-17 19:09 | DI.US.S_ITS ---
PROCEDURE: US CAROTID DOPPLER BI INDICATIONS: Syncope TECHNIQUE: Color and pulse Doppler interrogation was performed of both carotid systems, with image documentation and velocity measurements. COMPARISON: None. FINDINGS: Stenosis calculations are based on SRU (Society of Radiologists in Ultrasound) criteria. Right side: Brachial blood pressure: 134/68 mm Hg. Common carotid artery peak systolic velocity: 104 cm/sec. Internal carotid artery peak systolic velocity: 72 cm/sec. Internal carotid artery end diastolic velocity: 16 cm/sec. External carotid artery peak systolic velocity: 118 cm/sec. ICA/CCA peak systolic ratio: 0.69 . Bolanos scale imaging description: No atheromatous plaque or calcification Percent internal carotid artery stenosis: No stenosis. Vertebral artery: Flow direction is antegrade. Left side: Brachial blood pressure: 137/57 mm Hg. Common carotid artery peak systolic velocity: 133 cm/sec. Internal carotid artery peak systolic velocity: 82 cm/sec. Internal carotid artery end diastolic velocity: 30 cm/sec. External carotid artery peak systolic velocity: 99 cm/sec. ICA/CCA peak systolic ratio: 0.62 . Bolanos scale imaging description: No atheromatous plaque or calcification. Percent internal carotid artery stenosis: No stenosis. Vertebral artery: Flow direction is antegrade. IMPRESSION: 1. No stenosis of the bilateral internal carotid arteries. Dictated by: Maxine Martinez M.D. on 09/18/2021 at 7:59 Approved by: Maxine Martinez M.D. on 09/18/2021 at 8:02
--- NOTE | 2021-09-17 19:27 | PC.NURSE ---
17:10 Pt states, had wallet with him in emergency room and now he does not have it. Helped pt check jose antonio pockets and Shameka at bedside helped check jose antonio pockets and belongings. Unable to locate pt wallet.
[2021-09-17] MEDS: SODIUM CHLORIDE 0.9% 1,000 ML 100 ML IV (19:30)
[2021-09-17] MEDS: ACETAMINOPHEN 325 MG TABLET 650 MG PO (19:30)
[2021-09-18 02:30] VITALS: BP 132/70; PULSE 73; RESP 16; TEMP 37; O2SAT 98
[2021-09-18] MEDS: ACETAMINOPHEN 325 MG TABLET 650 MG PO (05:34)
[2021-09-18 05:43] VITALS: BP 142/70; PULSE 65; RESP 16; TEMP 36.1; O2SAT 96
[2021-09-18 06:02] LABS: Add Manual Diff / Slide Review NO; Basophils Absolute Auto 0 /uL (0-100); Basophils Percent Auto 0.7 % (0-2); Eosinophils Absolute Auto 300 /uL (0-450); Eosinophils Percent Auto 4.6 % (2-4); Hemoglobin 12.4 g/dL (13.5-17.5); Lymphocytes Absolute Auto 1700 /uL (1100-4500); Lymphocytes Percent Auto 25.8 % (25-40); Mean Corpuscular HGB Conc 33.4 % (30-36); Mean Corpuscular Hemoglobin 29.1 PG (26-34); Mean Corpuscular Volume 87.3 fL (80-100); Monocytes Absolute Auto 700 /uL (0-900); Monocytes Percent Auto 10.5 % (3-14); Neutrophils Absolute Auto 3800 /uL (1500-7000); Neutrophils Percent Auto 58.4 % (50-75); Platelet Count 195 X10^3/uL (150-400); Red Blood Cell Count 4.24 X10^6/uL (4.5-5.9); Red Cell Distribution Width 14.1 % (11.6-14.8); White Blood Cell Count 6.5 X10^3/uL (4.5-11.0)
[2021-09-18 06:05] LABS: Blood Urea Nitrogen 16 mg/dL (9-20); Calcium 8.5 mg/dL (8.4-10.2); Carbon Dioxide 28 mmol/L (22-32); Chloride 105 mmol/L (98-107); Estimated Glomerular Filt Rate > 60 mL/min (>60); Glucose 143 mg/dL (80-110); HEMOLYSIS < 15 (0-50); Magnesium 2.1 mg/dL (1.6-2.3); Potassium 4.1 mmol/L (3.4-5.1); Sodium 139 mmol/L (137-145)
[2021-09-18 06:30] LABS: Thyroid Stimulating Hormone 2.72 uIU/mL (0.47-4.68)
[2021-09-18 07:49] VITALS: O2SAT 96
[2021-09-18 07:58] VITALS: BP 137/72; PULSE 63; RESP 16; TEMP 36.8; O2SAT 96
[2021-09-18 08:36] VITALS: BP 137/63; PULSE 63
[2021-09-18] MEDS: LOSARTAN 50 MG TABLET 100 MG PO (08:36)
[2021-09-18] MEDS: PARoxetine 20 MG TABLET PO (08:36)
[2021-09-18] MEDS: METOPROLOL ER 50 MG TABLET PO (08:36)
[2021-09-18] MEDS: hydroCHLOROthiazide 25 MG TABLET 12.5 MG PO (08:36)
[2021-09-18] MEDS: ATORVASTATIN 20 MG TABLET PO (08:36)
[2021-09-18] MEDS: ASCORBIC ACID 500 MG TABLET 1000 MG PO (08:37)
[2021-09-18] MEDS: MECLIZINE HCL 12.5 MG TABLET 25 MG PO (09:44)
--- NOTE | 2021-09-18 11:33 | PM.DS.1 ---
History of Present Illness History of Present Illness Chief complaint: Syncope, fall Narrative: Pqncozt-xlggv-jusm-old gentleman with hyperlipidemia, depression, hypertension, hypertension, ascending aortic enlargement, obstructive sleep apnea on CPAP who presented to the emergency department via EMS after a syncopal episode. Patient was at his cktxva-av-bhg's home in [place] approximately 2-3 weeks ago for a wedding. They were in the jsltlx-je-acs's home when he suddenly told his he needed to lay down. She attempted to help him to bed but instead he crumpled to the floor. He was not injured. EMS was called and advised that he was dehydrated. Patient felt he probably was dehydrated and ultimately increased his fluid intake and returned home after the wedding. He had been doing fine in his usual state of health until this morning when seen is went on a 1 hour walk. He states he was walking up a hill, became lightheaded and felt the need to sit down. His states he appeared to be breathing heavily, she noted he was pale and appeared mildly clammy. He states he was not short of breath, but was lightheaded. He denies any nausea. After sitting for a few minutes, the lightheadedness when away and he ultimately got back in the car in the return home. Approximately 30 minutes L his asked him to assist with moving tail board man stones from inside the house out to the driveway. He declined but ultimately she asked again and he acquiesced. He states he used a hand truck to move the pavers from inside out to the driveway. He then had to lift them from the hand truck into a stack in the driveway. He states he was in the process of stacking 1 and bent over. His states he subsequently fell over with a loud thud. He was unresponsive for approximately 2 minutes. She noted he had a contusion on his forehead. EMS was contacted and came out to re-evaluate him. Blood sugar was 95. He remained confused on route to the ER and told the EMS team that his son is a glass designer and also told them that we are in [place]. states they moved from [place] years ago and their son is retired now lives in [place]. While in the emergency department he fully cleared and has returned to baseline cognitive status. Currently, patient complains of a mild headache and pain at the site of his hematoma. He denies any chest pressure, chest pain, chest tightness, shortness of breath, nausea, abdominal pain, neck pain. He denies any injuries at the time of his fall. Patient recently saw his primary care provider for his routine physical exam. He underwent a nuclear stress test which was low risk. He had an echocardiogram in December of 2020 secondary to his hypertension and a cardiac murmur. His EF was 60-65%. He had [id number] aortic regurgitation, trace mitral regurgitation, and trace tricuspid regurgitation. Discharge Providers Provider Date of admission: 09/17/21 16:04 Discharge Date: 09/18/21 Primary care physician: Donato Hidalgo MD Discharge provider: Maribel De La Paz MD Summary Hospital Course Discharge Diagnosis: Syncope, likely secondary to benign paroxysmal positional vertigo, resolved Obstructive sleep apnea on CPAP Right frontal hematoma, no evidence of post concussive symptoms Hypertension, chronic, stable Depression Hyperlipidemia Ascending aortic enlargement Biliary dilatation in the left hepatic lobe with associated hepatic cysts--needs outpatient MRI, to be arranged via PCP Hospital Course: Patient was admitted under observation status after having a syncopal event at home with subsequent right frontal hematoma. He had previously had an outpatient nuclear stress test which was read as a low risk study. He last had an echo 9 months ago which revealed no significant structural abnormalities with the exception of some mild to moderate aortic regurgitation. He was admitted under telemetry. No arrhythmias were noted. No bradycardia. Carotid ultrasound revealed no stenosis. TSH was within normal limits. On the morning following admission, patient reported vertiginous symptoms with movement of the head to the left. He noted it when he would turn over in bed. It was also reproducible on exam with leftward nystagmus. He was advised the etiology was likely benign paroxysmal positional vertigo. He was given meclizine and tolerated that well. He was ambulated without any additional symptoms. His discharging home with recommendations to contact his PCP for referral to outpatient physical therapy for vestibular rehab and aimee's maneuvers. He was advised not to drive, operate heavy machinery, do heavy lifting, to avoid rapid position changes with his had and avoid bending over until his symptoms have resolved. Status at Discharge Cognitive/behavioral status at discharge: at baseline, oriented Functional status at discharge: independent ambulation Overall status at discharge: patient is progressing back to baseline Exam Vital Signs (past 8 hours): - 09/18/21 05:43 07/18/22 07:49 09/18/21 07:58 Temperature 97 F L 98.2 F Pulse Rate 65 63 Respiratory Rate 16 16 Blood Pressure 142/70 H 137/72 Pulse Oximetry 96 96 96 Oxygen Delivery Method Room Air Oxygen Flow Rate 0 0 0 09/18/21 08:36 Temperature Pulse Rate 63 Respiratory Rate Blood Pressure 137/63 Pulse Oximetry Oxygen Delivery Method Oxygen Flow Rate Oxygen Delivery Method Room Air Oxygen Flow Rate 0 Narrative Exam Narrative: GEN: Very pleasant elderly male, Alert and oriented x 3, NAD HEENT:NC, Face symmetric CHEST: Respiratory excursions symmetric, CTAB CV: RRR, no M/R/G ABD: Soft, NT/ND, BT present in all 4 quadrants, no organomegaly or masses EXTR: warm, well perfused, no C/C/E SKIN: warm and dry, no rash NEURO: Alert and oriented x 3, mild nystagmus with gazing to the left which reproduces symptoms Objective Labs Result Diagrams: 09/18/21 05:25 09/18/21 05:25 Labs: Laboratory Results - last 24 hr 09/17/21 09/17/21 09/17/21 12:37 12:37 12:37 WBC 5.7 RBC 4.32 L Hgb 12.6 L Hct 36.9 L MCV 85.6 MCH 29.2 MCHC 34.1 RDW 13.8 Plt Count 197 Neut % (Auto) 52.9 Lymph % (Auto) 32.5 [place] % (Auto) 9.0 Eos % (Auto) 4.6 H Baso % (Auto) 1.0 Neut # (Auto) 3000 Lymph # (Auto) 1900 [place] # (Auto) 500 Eos # (Auto) 300 Baso # (Auto) 100 PT 11.9 INR 1.1 D-Dimer Sodium 136 L Potassium 4.3 Chloride 103 Carbon Dioxide 29 BUN 22 H Creatinine 0.94 Estimated GFR > 60 BUN/Creatinine Ratio 23.4 H Glucose 101 Calcium 9.2 Magnesium Total Bilirubin 0.4 AST 39 ALT 31 Alkaline Phosphatase 52 Total Creatine Kinase CK-MB (CK-2) CK-MB (CK-2) Rel Index Troponin I Total Protein 6.8 Albumin 4.0 Globulin 2.8 Albumin/Globulin Ratio 1.4 TSH Urine Color Urine Appearance Urine pH Ur Specific [place] Urine Protein Urine Glucose (UA) Urine Ketones Urine Occult Blood Urine Nitrate Urine Bilirubin Urine Urobilinogen Ur Leukocyte Esterase Urine RBC Urine WBC Ur Squamous Epith Cells Urine Bacteria Ur Culture Indicated? U Opiates 300ng/mL cut Ur Oxycodone Screen Urine Methadone Screen Ur Barbiturates Screen U Tricyclic Antidepress Ur Phencyclidine Scrn Ur Amphetamines Screen U Methamphetamines Scrn Ur MDMA Scrn (Ecstasy) U Benzodiazepines Scrn Urine Cocaine Screen U Marijuana (THC) Screen Ethyl Alcohol SARS-CoV-2 (PCR) 09/17/21 09/17/21 09/17/21 12:37 12:37 12:37 WBC RBC Hgb Hct MCV MCH MCHC RDW Plt Count Neut % (Auto) Lymph % (Auto) [place] % (Auto) Eos % (Auto) Baso % (Auto) Neut # (Auto) Lymph # (Auto) [place] # (Auto) Eos # (Auto) Baso # (Auto) PT INR D-Dimer 253 H Sodium Potassium Chloride Carbon Dioxide BUN Creatinine Estimated GFR BUN/Creatinine Ratio Glucose Calcium Magnesium Total Bilirubin AST ALT Alkaline Phosphatase Total Creatine Kinase 72 CK-MB (CK-2) TNP CK-MB (CK-2) Rel Index TNP Troponin I < 0.012 Total Protein Albumin Globulin Albumin/Globulin Ratio TSH Urine Color Urine Appearance Urine pH Ur Specific [place] Urine Protein Urine Glucose (UA) Urine Ketones Urine Occult Blood Urine Nitrate Urine Bilirubin Urine Urobilinogen Ur Leukocyte Esterase Urine RBC Urine WBC Ur Squamous Epith Cells Urine Bacteria Ur Culture Indicated? U Opiates 300ng/mL cut Ur Oxycodone Screen Urine Methadone Screen Ur Barbiturates Screen U Tricyclic Antidepress Ur Phencyclidine Scrn Ur Amphetamines Screen U Methamphetamines Scrn Ur MDMA Scrn (Ecstasy) U Benzodiazepines Scrn Urine Cocaine Screen U Marijuana (THC) Screen Ethyl Alcohol < 10 SARS-CoV-2 (PCR) 09/17/21 09/17/21 09/17/21 13:25 14:32 14:32 WBC RBC Hgb Hct MCV MCH MCHC RDW Plt Count Neut % (Auto) Lymph % (Auto) [place] % (Auto) Eos % (Auto) Baso % (Auto) Neut # (Auto) Lymph # (Auto) [place] # (Auto) Eos # (Auto) Baso # (Auto) PT INR D-Dimer Sodium Potassium Chloride Carbon Dioxide BUN Creatinine Estimated GFR BUN/Creatinine Ratio Glucose Calcium Magnesium Total Bilirubin AST ALT Alkaline Phosphatase Total Creatine Kinase CK-MB (CK-2) CK-MB (CK-2) Rel Index Troponin I Total Protein Albumin Globulin Albumin/Globulin Ratio TSH Urine Color Yellow Urine Appearance Clear Urine pH 8.0 Ur Specific [place] 1.010 Urine Protein Trace H Urine Glucose (UA) Negative Urine Ketones Trace H Urine Occult Blood Negative Urine Nitrate Negative Urine Bilirubin Negative Urine Urobilinogen 0.2 Ur Leukocyte Esterase Negative Urine RBC 0-1/hpf Urine WBC 0-1/hpf Ur Squamous Epith Cells 0-1 /hpf Urine Bacteria None seen Ur Culture Indicated? Cult not indicated U Opiates 300ng/mL cut Negative Ur Oxycodone Screen Negative Urine Methadone Screen Negative Ur Barbiturates Screen Negative U Tricyclic Antidepress Negative Ur Phencyclidine Scrn Negative Ur Amphetamines Screen Negative U Methamphetamines Scrn Negative Ur MDMA Scrn (Ecstasy) Negative U Benzodiazepines Scrn Negative Urine Cocaine Screen Negative U Marijuana (THC) Screen Positive H Ethyl Alcohol SARS-CoV-2 (PCR) Negative 09/18/21 09/18/21 09/18/21 05:25 05:25 05:25 WBC 6.5 RBC 4.24 L Hgb 12.4 L Hct 37.0 L MCV 87.3 MCH 29.1 MCHC 33.4 RDW 14.1 Plt Count 195 Neut % (Auto) 58.4 Lymph % (Auto) 25.8 [place] % (Auto) 10.5 Eos % (Auto) 4.6 H Baso % (Auto) 0.7 Neut # (Auto) 3800 Lymph # (Auto) 1700 [place] # (Auto) 700 Eos # (Auto) 300 Baso # (Auto) 0 PT INR D-Dimer Sodium 139 Potassium 4.1 Chloride 105 Carbon Dioxide 28 BUN 16 Creatinine 0.84 Estimated GFR > 60 BUN/Creatinine Ratio 19.0 Glucose 143 H Calcium 8.5 Magnesium 2.1 Total Bilirubin AST ALT Alkaline Phosphatase Total Creatine Kinase CK-MB (CK-2) CK-MB (CK-2) Rel Index Troponin I Total Protein Albumin Globulin Albumin/Globulin Ratio TSH 2.72 Urine Color Urine Appearance Urine pH Ur Specific [place] Urine Protein Urine Glucose (UA) Urine Ketones Urine Occult Blood Urine Nitrate Urine Bilirubin Urine Urobilinogen Ur Leukocyte Esterase Urine RBC Urine WBC Ur Squamous Epith Cells Urine Bacteria Ur Culture Indicated? U Opiates 300ng/mL cut Ur Oxycodone Screen Urine Methadone Screen Ur Barbiturates Screen U Tricyclic Antidepress Ur Phencyclidine Scrn Ur Amphetamines Screen U Methamphetamines Scrn Ur MDMA Scrn (Ecstasy) U Benzodiazepines Scrn Urine Cocaine Screen U Marijuana (THC) Screen Ethyl Alcohol SARS-CoV-2 (PCR) [facility] Medical History Ascending aorta enlargement Chronic congestion of paranasal sinus Hay fever Hearing deficit Obstructive sleep apnea of adult Sleep apnea Vision disorder Surgical History Anesthesia Status post hernia repair Status post rotator cuff repair Family History Mother Heart disease Social History marital status: details: to Stephanie household members: spouse lives independently: Yes caregiver/support person: No 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 Smoking Status: Never smoker alcohol intake: current substance use type: does not use Type(s) of exercise: bicycling and regular exercise frequency: 5-6 times per week Discharge Plan Discharge Plan Patient Disposition: Home Provider Discharge Comment: Avoid rapid position changes Avoid turning in bed on the affected side Do not drive until your symptoms have resolved Take meclizine as needed for vertiginous symptoms Contact your PCP and request a referral for physical therapy to a vestibular specialist for Aimee's maneuvers ([facility] outpatient therapy does this) Discharge orders & Medications Prescriptions: New meclizine 12.5 mg Tablet 25 mg PO TID PRN (Reason: Vertigo) Qty: 30 0RF Continued Glucosamine Hydrochloride (#GLUCOSAMINE) 500 mg PO Q DAY Qty: 0 ascorbic acid (vitamin C) 500 MG tablet 1,000 mg PO QDAY Qty: 0 losartan-hydrochlorothiazide 100-12.5 mg tablet 1 tab PO DAILY Qty: 90 3RF atorvastatin 40 mg tablet 20 mg PO DAILY metoprolol succinate 50 mg tablet extended release 24 hr 50 mg PO DAILY paroxetine HCl 20 mg tablet 20 mg PO DAILY loratadine [Claritin] 10 mg Tablet 10 mg PO DAILY methylsulfonylmethane 500 mg Capsule PO DAILY Vitamin D (with calcium) 1 tab PO DAILY multivitamin with minerals 1 tab PO DAILY zinc 1 tab PO DAILY (DME) [employer] Dreamstation CPAP Qty: 1 Dose Instruction: As directed Label Comments: Pressure: 8-16 cmH2O DME: [facility] Rx Instructions: As directed Medication counseling provided by Pharmacist: No Follow up/Referrals: Donato Hidalgo MD [Primary Care Provider] - Diet/Activity/Treatments Diet: Diet as Tolerated and Regular Diet comment: Monitor your fluid intake: Goal 2000 cc/day (2Liters/64 oz) Activity: As tolerated, no heavy lifting or operating heavy machinery until symptoms have fully resolved Oxygen: N/A Visit Report/Discharge Packet Instructions: DI for Syncope in Adults (Fainting), Vertigo, Antihistamine (By mouth) Discharge Data Primary Care Provider: Donato Hidalgo Attending Provider: Maribel De La Paz Quality VTE Deep Vein Thrombosis/Pulmonary Embolism Present on Admission: No
--- NOTE | 2021-09-18 11:42 | PC.NURSE ---
Pt is dressed and ready to discharge home with family member. IV and tele has been removed. Went over d/c instructions with Pt and Spouse-discussed d/c meds, time of last dose, reviewed stroke education, reminded Pt to get up slowly out of bed or chair. Discussed drinking plenty of fluids to prevent dehydration or fluid imbalance. Reminded Pt to not drive when dizzy and to call Dr. Hidalgo for a PT referral to see a Vestibular physical therapist. Pt denies further questions and was taken out to po via w/c by CERTIFIED ALCOHOL COUNSELOR with Spouse and all belongings.
== END 2021-09-18 11:53 | disposition home or self-care (01) ==
LOC: ED 15:58 → AC 16:05
PROVIDERS: Admitting Provider Family Medicine; Emergency Provider Emergency Medicine; PCP Family Medicine; Referring Provider Emergency Medicine; Visit Provider Family Medicine
DX: R55 Syncope and collapse (principal); G47.33 Obstructive sleep apnea (adult) (pediatric); S00.83XA Contusion of other part of head, initial encounter; I35.1 Nonrheumatic aortic (valve) insufficiency; I77.89 Other specified disorders of arteries and arterioles; I10 Essential (primary) hypertension; E78.5 Hyperlipidemia, unspecified; F32.A Depression, unspecified; K83.8 Other specified diseases of biliary tract; K76.89 Other specified diseases of liver; W18.30XA Fall on same level, unspecified, initial encounter; Z20.822 Contact with and (suspected) exposure to COVID-19
CPT/HCPCS: 36415; 70450; 71045; 71275; 72125; 74177; 80048; 80053; 80305; 80320; 81001; 82550; 83735; 84443; 84484; 85025; 85379; 85610; 87635; 93005; 93010; 93880; 96361; 96374; 99284; C9803; G0378; J2405; Q9967

== ENCOUNTER → 2021-09-30 10:11 | Outpatient (CLI) | payer MEDICARE, SELFPAY ==
[2021-09-21 14:58] VITALS: BMI 25.6
--- NOTE | 2021-09-30 10:12 | DI.MRI.S_ITS ---
PROCEDURE: MR ABDOMEN WO/W CON INDICATIONS: eval biliary dilitation and hepatic cysts TECHNIQUE: Coronal HASTE, axial 2D FLASH in- and [id number]; axial breath-hold T2 FSE. Dynamic axial VIBE during the administration of contrast; post-contrast coronal VIBE or 2D FLASH with fat saturation from the hepatic dome to the iliac crests. Optional diffusion weighted imaging and ADC may be performed. COMPARISON: None. FINDINGS: Image quality: Excellent. Lung bases: No basal pleural effusions. Heart size is normal. Solid organs: Multiple liver cysts. Multi lobulated perihilar cyst, measuring about 6.8 x 5.3 cm as a conglomerate (5/19). There are numerous peribiliary cysts, particularly in the left hepatic lobe. No overt enhancing component. No suspicious diffusion restriction . Multiple, mostly peripheral subcentimeter regions of hypervascularity throughout the liver parenchyma favored to represent perfusion anomalies. No corresponding T2 signal abnormality is seen. Gallbladder is within normal limits. The CBD is prominent measuring about 9 mm. Spleen is unremarkable. No pancreatic ductal dilation. Multiple renal lesions representing cysts, some of which have intrinsically T1 hyperintense components. Nodes and vessels: No retroperitoneal or mesenteric adenopathy by size criteria. Aorta and inferior vena cava are normal in size. Bowel and peritoneum: Small hiatal hernia. No bowel obstruction. No pathologic free fluid. Bones and soft tissues: No ventral hernias. Bone marrow is normal in overall signal. IMPRESSION: Dominant multi lobulated liver cyst adjacent to the hilum, and numerous peribiliary cysts. No overtly suspicious features, such as enhancing nodule or diffusion restriction. There are also suspected hepatic perfusion anomalies visible as small hypervascular regions on arterial phase. Mildly dilated CBD at 9 mm. Continued clinical and laboratory follow-up is advised. Reimaging may be obtained if there are abnormal clinical parameters. Other incidental findings above. Dictated by: Paras Blackwell M.D. on 09/30/2021 at 11:03 Approved by: Paras Blackwell M.D. on 09/30/2021 at 11:18
== END ==
PROVIDERS: Family Provider Family Medicine; PCP Family Medicine; Referring Provider Family Medicine; Visit Provider Family Medicine
DX: K76.89 Other specified diseases of liver (principal); K83.8 Other specified diseases of biliary tract
CPT/HCPCS: 74183

== ENCOUNTER → 2021-10-04 10:13 | Outpatient (CLI) | payer MEDICARE, SELFPAY ==
[2021-09-21 14:58] VITALS: BMI 25.6
--- NOTE | 2021-10-26 10:35 | PM.CARDMON.1 ---
[employer] Report Referral & Results Date Patient Seen: 10/04/21 Requesting provider: Donato Hidalgo Indication: Syncope Duration of monitoring (days): 14 Diary information: There were 7 patient diary entries to review and no patient triggered events Patient diary entries were associated with (within 45 seconds) sinus rhythm and PACs Data: Minimum heart rate identified was 47 beats per minute at 04:26 on 10/12/2021 Maximum sinus heart rate was 106 beats per minute at 09:56 on 10/05/2021 Maximum overall heart rate was 171 beats per minute at 23:12 on 10/07/2021 during a run of SVT Less than 1% of identified beats were ventricular or supraventricular ectopic in origin, which would classify them as rare. There were 25 runs of SVT with the fastest being the 4 beat run at the above rate of 171 beats per minute, the longest lasting 14 beats at a rate of 90 beats per minute which suggest more atrial tachycardia rather than true SVT No episodes of atrial fibrillation or pauses of 3 seconds or longer were identified on this study Impression: 14 day classroom monitor demonstrating rare PACs and very rare very brief runs of SVT No clear etiology for syncope identified on this study Clinical correlation suggested
== END ==
PROVIDERS: Family Provider Family Medicine; PCP Family Medicine; Referring Provider Family Medicine; Visit Provider Family Medicine
DX: R55 Syncope and collapse (principal)
CPT/HCPCS: 93246; 93248

== ENCOUNTER → 2021-10-19 13:16 | Outpatient (CLI) | payer MEDICARE, SELFPAY ==
[2021-09-21 14:58] VITALS: BMI 25.6
--- NOTE | 2021-10-19 13:18 | DI.RAD.S_ITS ---
PROCEDURE: XR HIP W PEL IF DONE RT 2V INDICATIONS: pain TECHNIQUE: AP pelvis with lateral view(s) of the right hip(s). COMPARISON: None. FINDINGS: Bones: No fractures or dislocations. Pelvic ring appears intact. There are small right collar osteophytes. No suspicious bony lesions. Soft tissues: The visualized bowel gas pattern is normal. No suspicious soft tissue calcifications. IMPRESSION: Degenerative change. No acute radiographic findings. Dictated by: Maxine Martinez M.D. on 10/19/2021 at 15:29 Approved by: Maxine Martinez M.D. on 10/19/2021 at 15:29
== END ==
PROVIDERS: Family Provider Family Medicine; PCP Family Medicine; Referring Provider Family Medicine; Visit Provider Family Medicine
DX: M25.551 Pain in right hip (principal)
CPT/HCPCS: 73502

== ENCOUNTER 2021-10-23 11:15 | Outpatient (RCR) | payer MEDICARE, SELFPAY ==
[2021-09-17 17:38] VITALS: BMI 25.6
[2021-09-21 14:58] VITALS: BMI 25.6
--- NOTE | 2021-10-19 14:30 | PT.OIE ---
Current Diagnoses Dizziness and giddiness (10/19/21) Syncope and collapse (10/19/21) Past Medical History (Last Updated 09/22/21 @ 16:45 by Donato Hidalgo MD) Ascending aorta enlargement Chronic congestion of paranasal sinus Hay fever Hearing deficit Hepatic cyst Obstructive sleep apnea of adult Sleep apnea Vision disorder Past Surgical History (Last Reviewed 09/17/21 @ 13:29 by Bogdan Walker MD) Anesthesia Status post hernia repair Status post rotator cuff repair Visit Care Team Role Provider Type Donato Hidalgo MD Attending Provider Physician Family Provider Primary Care Provider Referring Provider Specialty: Family Practice Address: [address] [place] [address] Email: [email or web address] Therapy Initial Evaluation PT-OP-A Visit Information Start: 10/19/21 17:36 Freq: Status: Active Protocol: Document 10/19/21 13:45 DCW (Rec: 10/19/21 17:52 DCW [id number]) Out-Patient Physical Therapy Visit Information Visit Information Visit Type Initial Evaluation Visit Start Time 13:45 Visit Stop Time 14:30 Total Visit Minutes 45 Visit Number 1 Number of 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 Pt reports that on 09/17/21, he had gotten fatigued and light- headed during a walk, but then began to feel better after an hour rest. Pt's then requested his help moving paving stones. Pt reports that he bent down to get one, felt he was struggling a bit, and then woke up a few minutes later on the ground. Pt was taken to the ED, found to have fading confusion, and a contusion on his head. CT scan was negative for internal hemorrhage. Belief is that he was fatigued and dehydrated, leading to syncopal episode. Pt reports that since this time, his balance has been off, he has felt very unstable, and has a new fear of falling. Pt reported multiple times he has vertigo , and then stated that I haven't actually been diagnosed with that, that's just my guess based on what I read online. Denies any rotation symptoms, describes it more as just instability when up walking around. Also notes increased stiffness in his neck following fall. Conflicting reports about whether or not he was having any spinning prior to his syncope, pt reports now that he had not had any symptoms previously. Prior Treatments and Tests Head CT: IMPRESSION: Right frontal scalp hematoma without skull fracture or large intracranial hemorrhage. Metallic streak artifact from bilateral hearing aids limits multiple images of the study. Recommend follow-up CT brain after hearing aid removal. per Shola Galvan M.D. on 09/[address]: IMPRESSION: Multilevel degenerative disc disease and arthropathy without fracture or traumatic malalignment per Shola Galvan M.D. on 09/17/2021 Treatment Goals Patient/Caregiver Goals To stop feeling like I'm off balance. PT-OP-C Subjective Start: 10/19/21 17:36 Freq: Status: Active Protocol: Document 10/19/21 13:45 DCW (Rec: 10/19/21 17:52 DCW [id number]) OP-PT Subjective Patient Comments Patient Comments My balance has been shot since that fall. Patient Reported Progress Same Patient Questionnaires Dizziness Handicap Inventory DHI Score 46% DHI Functional Impairment 40 to 59% Impaired (Score 40- 59) PT-OP-D Balance Start: 10/19/21 17:54 Freq: Status: Active Protocol: Document 10/19/21 13:45 DCW (Rec: 10/19/21 17:55 DCW [id number]) Balance Tests Single Limb Standing Single Limb- Right 1 second Single Limb- Left 2 seconds PT-OP-O Vestibular Start: 10/19/21 17:36 Freq: Status: Active Protocol: Document 10/19/21 13:45 DCW (Rec: 10/19/21 17:54 DCW [id number]) Vestibular Assessment Screening Tests Vestibular Artery Screen Negative Auditory Tests Miller Test Within normal limits Rinne Test Negative Air Conduction Results Equal Visual Testing Smooth Pursuits Horizontal Saccadic movements Smooth Pursuits Vertical Saccadic movements Saccades Horizontal WNL Saccades Vertical WNL Gaze Evoked Nystagmus With Fixation 2? R Gaze Evoked Nystagmus Without Fixation 2? R Heave Test Positive Bilateral Thrust Head Positive Bilateral Marcos String Test WNL Convergence Test WNL Head Shake Negative Positional Testing Leno-Hallpike Negative Left,Negative Right Rolling Test Negative Left,Negative Right Vestibular Function Tests mCTSIB Position 1 30 mCTSIB Position 2 4 mCTSIB Position 3 2 mCTSIB Position 4 NT PT-OP-T Assessment and Plan Start: 10/19/21 17:36 Freq: Status: Active Protocol: Document 10/19/21 13:45 DCW (Rec: 10/20/21 08:41 DCW [id number]) Physical Therapy Assessment Rehab Potential Rehabilitation Potential Good Evaluation Complexity Number of Personal Factors/Comorbidities 3 or More Number of Body Systems Impaired 3 Clinical Presentation at Evaluation Unstable Impairments Impairments Balance,Coordination, Functional Activities, Functional Mobility,Gait, Vestibular Goals Two Impairment Pt does not have an appropriate home exercise program Short Term Goal (STG) Pt to be independent and compliant with an appropriate HEP One Impairment Pt presents with poor balance and increased falls risk Group Home Goal (LTG) 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 LTG Duration 11/19/21 Assessment Summary Assessment Pt presents with skilled therapy with complaints of instability and imbalance following a syncopal episode which left him with a concussion. Pt vestibular testing is largely negative for peripheral vestibular dysfunction. Pt does have a few symptoms, particularly a 2 degree right-beating gaze nystagmus, both with and without fixation, as well as saccadic movements during smooth pursuit, which may be suggestive of a central dysfunction, however with a recent CT scan which was unremarkable, most likely cause of imbalance is post- concussion symptoms. Pt should benefit from skilled therapy focusing on challenging balance and stability, gait training, and further assessment of cervical involvement. Physical Therapy Plan Frequency and Duration Frequency of Treatment 1-2x/week Duration of Treatment Two months Plan of Care Start Date 10/19/21 Plan of Care End Date 12/19/21 Therapeutic Interventions Therapeutic Interventions Balance Training,Gait Training ,Home Exercise Program,Manual Therapy,Neuromuscular Re- education,Patient/Caregiver Education,Self-Care/Home Management,Soft Tissue Mobilization,Therapeutic Activities,Therapeutic Exercises,Vestibular Rehabilitation Next Visit Focus/Plan Next Note Type Treatment Note Next Visit Plan Further balance testing (HAWA Rivera), cervical assessment, balance training
--- NOTE | 2021-10-19 14:30 | PT.OPPOC ---
Physical, Occupational & Speech Therapy At Current Diagnoses Dizziness and giddiness (10/19/21) Syncope and collapse (10/19/21) Visit Care Team Role Provider Type Donato Hidalgo MD Attending Provider Physician Family Provider Primary Care Provider Referring Provider Specialty: Family Practice Address: [address] [place] [address] Email: [email or web address] Plan Of Care PT-OP-T Assessment and Plan Start: 10/19/21 17:36 Freq: Status: Active Protocol: Document 10/19/21 13:45 DCW (Rec: 10/20/21 08:41 DCW [id number]) Physical Therapy Assessment Rehab Potential Rehabilitation Potential Good Evaluation Complexity Number of Personal Factors/Comorbidities 3 or More Number of Body Systems Impaired 3 Clinical Presentation at Evaluation Unstable Impairments Impairments Balance,Coordination, Functional Activities, Functional Mobility,Gait, Vestibular Goals Two Impairment Pt does not have an appropriate home exercise program Short Term Goal (STG) Pt to be independent and compliant with an appropriate HEP One Impairment Pt presents with poor balance and increased falls risk Mcc Goal (LTG) 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 LTG Duration 11/19/21 Assessment Summary Assessment Pt presents with skilled therapy with complaints of instability and imbalance following a syncopal episode which left him with a concussion. Pt vestibular testing is largely negative for peripheral vestibular dysfunction. Pt does have a few symptoms, particularly a 2 degree right-beating gaze nystagmus, both with and without fixation, as well as saccadic movements during smooth pursuit, which may be suggestive of a central dysfunction, however with a recent CT scan which was unremarkable, most likely cause of imbalance is post- concussion symptoms. Pt should benefit from skilled therapy focusing on challenging balance and stability, gait training, and further assessment of cervical involvement. Physical Therapy Plan Frequency and Duration Frequency of Treatment 1-2x/week Duration of Treatment Two months Plan of Care Start Date 10/19/21 Plan of Care End Date 12/19/21 Therapeutic Interventions Therapeutic Interventions Balance Training,Gait Training ,Home Exercise Program,Manual Therapy,Neuromuscular Re- education,Patient/Caregiver Education,Self-Care/Home Management,Soft Tissue Mobilization,Therapeutic Activities,Therapeutic Exercises,Vestibular Rehabilitation Next Visit Focus/Plan Next Note Type Treatment Note Next Visit Plan Further balance testing (HAWA Rivera), cervical assessment, balance training Plan of Care Dates Plan of Care Start Date 10/19/21 Plan of Care End Date 12/19/21 Electronically Signed by: Harry Mcfadden, PT 10/20/21 0842 If you are in agreement with this Plan of Care, please return a signed and dated copy. I have reviewed this Plan of Care and certify that the skilled therapy services above are required to meet the patient?s needs. Physician Signature Date Printed Name and Credentials Clinical Instructor Signature Printed Name and Credentials
--- NOTE | 2021-10-23 12:00 | PT.OTN ---
Current Diagnoses Dizziness and giddiness (10/23/21) Syncope and collapse (10/23/21) Physical Therapy Treatment Note PT-OP-A Visit Information Start: 10/19/21 17:36 Freq: Status: Active Protocol: Document 10/23/21 11:15 DCW (Rec: 10/23/21 12:25 DCW [id number]) Out-Patient Physical Therapy Visit Information Visit Information Visit Type Treatment Note Visit Start Time 11:15 Visit Stop Time 12:00 Total Visit Minutes 45 Visit Number 2 Number of CARGO AND CONTAINER INSPECTOR Visits 0 Evaluation Information Evaluation Date 10/19/21 PT-OP-B Current Condition Start: 10/19/21 17:36 Freq: Status: Active Protocol: Document 10/19/21 13:45 DCW (Rec: 10/19/21 17:52 DCW [id number]) Current Condition History of Current Condition Onset Date 09/17/21 Current Complaints Syncopal episode, vertigo History of Current Condition Pt is a 76 year old male presenting with instability and decreased balance one month s/p syncopal episode. Pt reports that on 09/17/21, he had gotten fatigued and light- headed during a walk, but then began to feel better after an hour rest. Pt's then requested his help moving paving stones. Pt reports that he bent down to get one, felt he was struggling a bit, and then woke up a few minutes later on the ground. Pt was taken to the ED, found to have fading confusion, and a contusion on his head. CT scan was negative for internal hemorrhage. Belief is that he was fatigued and dehydrated, leading to syncopal episode. Pt reports that since this time, his balance has been off, he has felt very unstable, and has a new fear of falling. Pt reported multiple times he has vertigo , and then stated that I haven't actually been diagnosed with that, that's just my guess based on what I read online. Denies any rotation symptoms, describes it more as just instability when up walking around. Also notes increased stiffness in his neck following fall. Conflictng reports about whether or not he was having any spinning prior to his syncope, pt reports now that he had not had any symptoms previously. Prior Treatments and Tests Head CT: IMPRESSION: Right frontal scalp hematoma without skull fracture or large intracranial hemorrhage. Metallic streak artifact from bilateral hearing aids limits multiple images of the study. Recommend follow-up CT brain after hearing aid removal. per Shola Galvan M.D. on 09/[address]: IMPRESSION: Multilevel degenerative disc disease and arthropathy without fracture or traumatic malalignment per Shola Galvan M.D. on 09/17/2021 Treatment Goals Patient/Caregiver Goals To stop feeling like I'm off balance. PT-OP-C Subjective Start: 10/19/21 17:36 Freq: Status: Active Protocol: Document 10/23/21 11:15 DCW (Rec: 10/23/21 12:25 DCW [id number]) OP-PT Subjective Patient Comments Patient Comments I'm doing better today than yesterday. attends today 's session, notes he was taking very small steps with a dramatic forward lean yesterday. PT-OP-D Balance Start: 10/19/21 17:54 Freq: Status: Active Protocol: Document 10/23/21 11:15 DCW (Rec: 10/23/21 12:25 DCW [id number]) Rivera Balance Assessment Evaluation Sitting to Standing Ability Several Tries w/Hands Unsupported Stance Supervision- 2 minutes Sitting Unsupported, Feet on Floor Safely- 2 minutes Standing to Sitting Ability Assist, Control w/Hands Transfer Ability Safely, Hand Use Unsupported Stance- Eyes Closed Supervision, 10 seconds Unsupported Stance- Eyes Open Supervision to maintain Reaching Forward Standing Safely, 5 inches Pick- Up Object From Floor Supervision Look Behind Shoulder - Standing Turns Sideways Only Turning 360 Degrees Turns slowly, but safely Unsupported Stance, Alternating Feet on (I)- 8 Steps in > 20 secs Stair Unsupported Tandem Stance Holds Tandem- 30 seconds Unilateral Leg Stance Lifts Leg/Unable to Hold Total Score Rivera Total Score (out of 56 points) 38 Rivera Impairment Rating 20 to 39% Impaired (Score 34- 44) PT-OP-E Functional Tests Start: 10/23/21 11:16 Freq: Status: Active Protocol: Document 10/23/21 11:15 DCW (Rec: 10/23/21 12:25 DCW [id number]) Functional Tests Dynamic Gait Index (DGI) Score 15/24 DGI Impairment Rating 20 to <40% Impaired (Score 15- 19) PT-OP-O Vestibular Start: 10/19/21 17:36 Freq: Status: Active Protocol: Document 10/19/21 13:45 DCW (Rec: 10/19/21 17:54 DCW [id number]) Vestibular Assessment Screening Tests Vestibular Artery Screen Negative Auditory Tests Miller Test Within normal limits Rinne Test Negative Air Conduction Results Equal Visual Testing Smooth Pursuits Horizontal Saccadic movements Smooth Pursuits Vertical Saccadic movements Saccades Horizontal WNL Saccades Vertical WNL Gaze Evoked Nystagmus With Fixation 2? R Gaze Evoked Nystagmus Without Fixation 2? R Heave Test Positive Bilateral Thrust Head Positive Bilateral Marcos String Test WNL Convergence Test WNL Head Shake Negative Positional Testing Leno-Hallpike Negative Left,Negative Right Rolling Test Negative Left,Negative Right Vestibular Function Tests mCTSIB Position 1 30 mCTSIB Position 2 4 mCTSIB Position 3 2 mCTSIB Position 4 NT PT-OP-Q Treatments Start: 10/19/21 17:36 Freq: Status: Active Protocol: Document 10/23/21 11:15 DCW (Rec: 10/23/21 12:25 DCW [id number]) Neuro Re-Education Treatment Other Activities Testing Details HAWA Rivera PT-OP-T Assessment and Plan Start: 10/19/21 17:36 Freq: Status: Active Protocol: Document 10/23/21 11:15 DCW (Rec: 10/23/21 12:25 DCW [id number]) Physical Therapy Assessment Impairments Impairments Balance,Coordination, Functional Activities, Functional Mobility,Gait, Vestibular Goals Two Impairment Pt does not have an appropriate home exercise program Short Term Goal (STG) Pt to be independent and compliant with an appropriate HEP One Impairment Pt presents with poor balance and increased falls risk Fur Nailer Goal (LTG) 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 LTG Duration 11/19/21 Assessment Summary Assessment Pt demonstrates increased falls risk with both DGI and Rivera, discussed with him importance of limiting falls, recommended use of assistive device, pt has old FWW from previous knee injury, somewhat agreeable to try. At end of session, pt's went more in-depth with his symptoms yesterday, noted that he had a fall Saturday night (10/21/21) after she went to bed, and suddenly the next day during their walk he had difficulty walking, started a shuffling gait, forward lean, and had some confusion and was speaking very softly. Feeling a bit better today, but therapist recommended getting over to PCP to discuss recent symptoms. Additionally, pt's forward lean and shuffling gait, as well as some results from his vestibular examination last week, may indicate need for further neuro work-up, and pt would likely benefit from referral to a neurologist. Physical Therapy Plan Frequency and Duration Frequency of Treatment 1-2x/week Duration of Treatment Two months Plan of Care Start Date 10/19/21 Plan of Care End Date 12/19/21 Therapeutic Interventions Therapeutic Interventions Balance Training,Gait Training ,Home Exercise Program,Manual Therapy,Neuromuscular Re- education,Patient/Caregiver Education,Self-Care/Home Management,Soft Tissue Mobilization,Therapeutic Activities,Therapeutic Exercises,Vestibular Rehabilitation Other Referrals/Consults Referrals/Consults Recommended Follow-up with PCP, Neurologist Next Visit Focus/Plan Next Note Type Treatment Note Next Visit Plan cervical assessment, balance and gait training
--- NOTE | 2021-10-27 16:59 | PT-OP ANOTE ---
Spoke with pt and his over the phone from his room in [facility]. Pt in very good spirits. They noted planned discharge for tomorrow (10/28/21), and will be getting home health PT after return home. They were notified that he would be discharged from outpatient PT, and will require a new referral in order to return.
--- NOTE | 2021-10-27 17:01 | PT.OPDS ---
Current Diagnoses Dizziness and giddiness (10/23/21) Syncope and collapse (10/23/21) Visit Care Team Role Provider Type Donato Hidalgo MD Attending Provider Physician Family Provider Primary Care Provider Referring Provider Specialty: Family Practice Address: [address] [place] [address], [facility] Email: [email or web address] Visit Number Visit Number 2 Discharge Summary PT-OP-B Current Condition Start: 10/19/21 17:36 Freq: Status: Active Protocol: Document 10/19/21 13:45 DCW (Rec: 10/19/21 17:52 DCW [id number]) Current Condition History of Current Condition Onset Date 09/17/21 Current Complaints Syncopal episode, vertigo History of Current Condition Pt is a 76 year old male presenting with instability and decreased balance one month s/p syncopal episode. Pt reports that on 09/17/21, he had gotten fatigued and light- headed during a walk, but then began to feel better after an hour rest. Pt's then requested his help moving paving stones. Pt reports that he bent down to get one, felt he was struggling a bit, and then woke up a few minutes later on the ground. Pt was taken to the ED, found to have fading confusion, and a contusion on his head. CT scan was negative for internal hemorrhage. Belief is that he was fatigued and dehydrated, leading to syncopal episode. Pt reports that since this time, his balance has been off, he has felt very unstable, and has a new fear of falling. Pt reported multiple times he has vertigo , and then stated that I haven't actually been diagnosed with that, that's just my guess based on what I read online. Denies any rotation symptoms, describes it more as just instability when up walking around. Also notes increased stiffness in his neck following fall. Conflictng reports about whether or not he was having any spinning prior to his syncope, pt reports now that he had not had any symptoms previously. Prior Treatments and Tests Head CT: IMPRESSION: Right frontal scalp hematoma without skull fracture or large intracranial hemorrhage. Metallic streak artifact from bilateral hearing aids limits multiple images of the study. Recommend follow-up CT brain after hearing aid removal. per Shola Galvan M.D. on 09/[address]: IMPRESSION: Multilevel degenerative disc disease and arthropathy without fracture or traumatic malalignment per Shola Galvan M.D. on 09/17/2021 Treatment Goals Patient/Caregiver Goals To stop feeling like I'm off balance. PT-OP-C Subjective Start: 10/19/21 17:36 Freq: Status: Active Protocol: Document 10/23/21 11:15 DCW (Rec: 10/23/21 12:25 DCW [id number]) OP-PT Subjective Patient Comments Patient Comments I'm doing better today than yesterday. attends today 's session, notes he was taking very small steps with a dramatic forward lean yesterday. PT-OP-D Balance Start: 10/19/21 17:54 Freq: Status: Active Protocol: Document 10/23/21 11:15 DCW (Rec: 10/23/21 12:25 DCW [id number]) Rivera Balance Assessment Evaluation Sitting to Standing Ability Several Tries w/Hands Unsupported Stance Supervision- 2 minutes Sitting Unsupported, Feet on Floor Safely- 2 minutes Standing to Sitting Ability Assist, Control w/Hands Transfer Ability Safely, Hand Use Unsupported Stance- Eyes Closed Supervision, 10 seconds Unsupported Stance- Eyes Open Supervision to maintain Reaching Forward Standing Safely, 5 inches Pick- Up Object From Floor Supervision Look Behind Shoulder - Standing Turns Sideways Only Turning 360 Degrees Turns slowly, but safely Unsupported Stance, Alternating Feet on (I)- 8 Steps in > 20 secs Stair Unsupported Tandem Stance Holds Tandem- 30 seconds Unilateral Leg Stance Lifts Leg/Unable to Hold Total Score Rivera Total Score (out of 56 points) 38 Rivera Impairment Rating 20 to 39% Impaired (Score 34- 44) PT-OP-E Functional Tests Start: 10/23/21 11:16 Freq: Status: Active Protocol: Document 10/23/21 11:15 DCW (Rec: 10/23/21 12:25 DCW [id number]) Functional Tests Dynamic Gait Index (DGI) Score 15/24 DGI Impairment Rating 20 to <40% Impaired (Score 15- 19) PT-OP-O Vestibular Start: 10/19/21 17:36 Freq: Status: Active Protocol: Document 10/19/21 13:45 DCW (Rec: 10/19/21 17:54 DCW [id number]) Vestibular Assessment Screening Tests Vestibular Artery Screen Negative Auditory Tests Miller Test Within normal limits Rinne Test Negative Air Conduction Results Equal Visual Testing Smooth Pursuits Horizontal Saccadic movements Smooth Pursuits Vertical Saccadic movements Saccades Horizontal WNL Saccades Vertical WNL Gaze Evoked Nystagmus With Fixation 2? R Gaze Evoked Nystagmus Without Fixation 2? R Heave Test Positive Bilateral Thrust Head Positive Bilateral Marcos String Test WNL Convergence Test WNL Head Shake Negative Positional Testing Leno-Hallpike Negative Left,Negative Right Rolling Test Negative Left,Negative Right Vestibular Function Tests mCTSIB Position 1 30 mCTSIB Position 2 4 mCTSIB Position 3 2 mCTSIB Position 4 NT PT-OP-T Assessment and Plan Start: 10/19/21 17:36 Freq: Status: Active Protocol: Document 10/27/21 16:54 DCW (Rec: 10/27/21 16:59 DCW [id number]) Physical Therapy Assessment Assessment Summary Assessment Pt admitted to with CVA and then transferred to [facility] . Pt will be discharged from outpatient PT at this time, will receive Home Health after return home. Pt will need a new referral in order to return to skilled outpatient
== END 2022-01-11 10:41 | disposition home or self-care (01) ==
LOC: PHYS 11:15
PROVIDERS: Family Provider Family Medicine; PCP Family Medicine; Referring Provider Family Medicine; Visit Provider Family Medicine
DX: R42 Dizziness and giddiness (principal); R55 Syncope and collapse
CPT/HCPCS: 97112; 97162

== ENCOUNTER → 2021-10-24 16:41 | Outpatient (CLI) | payer MEDICARE, SELFPAY ==
[2021-09-21 14:58] VITALS: BMI 25.6
[2021-10-24 17:41] LABS: Appearance Urine UA CLEAR; Bilirubin Urine UA NEGATIVE (NEGATIVE); Color Urine UA YELLOW; Glucose Urine UA NEGATIVE (Negative); Ketones Urine UA NEGATIVE (NEGATIVE); Leukocyte Esterase Urine UA NEGATIVE (NEGATIVE); Nitrite Urine UA NEGATIVE (Negative); Occult Blood Urine UA NEGATIVE (Negative); Protein Urine UA TRACE (Negative); Urobilinogen Urine UA 0.2 E.U./dL (0.2); pH Urine UA 6.5 (4.5-8.0)
[2021-10-24 17:47] LABS: C-Reactive Protein Quant 0.7 mg/dL (<1.0)
[2021-10-24 18:01] LABS: Bacteria Urine None Seen; Culture Indicated Urine Cult Not Indicated; RBC Urine 0-1/HPF (0-5/HPF); Squamous Epithelial Cell Urine None Seen (0-5/HPF); WBC Urine None Seen (0-5/HPF)
[2021-10-24 18:52] LABS: Erythrocyte Sedimentation Rate 52 MM/HR (0-15)
== END ==
PROVIDERS: Family Provider Family Medicine; PCP Family Medicine; Referring Provider Family Medicine; Visit Provider Family Medicine
DX: R26.2 Difficulty in walking, not elsewhere classified (principal); R55 Syncope and collapse; R26.89 Other abnormalities of gait and mobility; M62.81 Muscle weakness (generalized); M25.511 Pain in right shoulder; M25.512 Pain in left shoulder; R32 Unspecified urinary incontinence
CPT/HCPCS: 36415; 81001; 85651; 86140

== ENCOUNTER → 2021-10-25 06:30 | Outpatient (CLI) | payer MEDICARE, SELFPAY ==
[2021-09-21 14:58] VITALS: BMI 25.6
--- NOTE | 2021-10-25 06:32 | DI.MRI.S_ITS ---
PROCEDURE: MR STROKE Pre- and post-contrast brain MRI, non-contrast brain MR angiogram, pre- and postcontrast neck MR angiogram INDICATIONS: Difficulty walking, incontinence TECHNIQUE: Brain: Noncontrast axial T1 spin echo, axial T2 fast spin echo, sagittal and axial FLAIR, coronal T2 fast spin echo, axial gradient echo, axial diffusion and ADC through the brain. After the administration of contrast, axial 3D VIBE of the cranial vasculature and brain. Brain MRA: Non-contrast 3-D time of flight MR angiogram, with multiple erkvvqy-lexibsltf-oblizqiijp (MIP) reformats performed. Neck MRA: Axial and sagittal TruFISP through the neck. Coronal dynamic MR angiogram during administration of contrast in the arterial and venous phases, with 3-dimenstional btikdke-keltnmfsj-krzydzxvpz (MIP) reformats constructed from subtraction images. COMPARISON: [facility], CT, CT HEAD/BRAIN WO CON, 09/17/2021, 12:54. FINDINGS: Image quality: Excellent. BRAIN: The ventricular system and cortical sulci demonstrate atrophy, consistent for the patient's stated age. There are areas of increased T2/FLAIR signal intensity within the periventricular and subcortical white matter. In the interval since the prior exam, there are bilateral extra-axial fluid collections predominantly within the frontal parietal and temporal lobes. Greatest transverse dimension measures 1.9 cm. There is no midline shift. It is hyperintense on T1 and T2 as well as FLAIR as well as hypointense on gradient sequence. Brainstem is unremarkable. There are no areas of restricted diffusion. Globes are symmetrical. Sinuses are aerated. Osseous structures are intact. BRAIN MR ANGIOGRAM: Anterior circulation: Intracranial internal carotid arteries are normal in size and enhancement. The flow within the paired anterior cerebral arteries is normal and symmetric. There is a mild minute of appearance the distal right M1 segment with distal flow. No priors are available for comparison. The anterior communicating artery is seen. No stenoses, occlusions, or aneurysms. Posterior circulation: The visualized portions of the vertebral arteries demonstrate normal caliber, and join to form a normal appearing basilar artery. The flow within the posterior cerebral arteries is normal and symmetric. No stenoses, occlusions, or aneurysms. NECK MR ANGIOGRAM: Carotids: Great vessels demonstrate a conventional anatomy as they arise from the aortic arch. The origins of the common carotid arteries appear patent. The calibers and courses of both common carotid arteries are normal. The bifurcation regions appear normal bilaterally. The internal carotid arteries demonstrate normal course and caliber. Posterior circulation: The origins of the vertebral arteries appear patent. More superior portions of both vertebral arteries demonstrate normal course and caliber, and join to form a normal appearing basilar artery. Miscellaneous: Subclavian arteries appear patent. Pre-contrast images through the neck show no soft tissue abnormalities. IMPRESSION: Interval development of bilateral subdural hematomas as described above without midline shift. Diminutive appearance of the right M1 segment of the middle cerebral artery without associated acute infarction. This is suspected to be chronic or congenital asymmetry. If concern persists, CT a may be obtained. No areas of hemodynamically significant stenosis, vascular occlusion or aneurysmal dilation within the neck vasculature. The above findings were called to Dr. Donato Hidalgo, who was not in the office. Dr. Valentine, covering for Dr. Hidalgo directed patient to ED for further evaluation. Case was discussed with Dr. Kadie Nguyen in the ED on 10/25/21 at 8:45 a.m. Patient will be brought from imaging department to ED. Dictated by: Dipti Gonzalez M.D. on 10/25/2021 at 8:37 Approved by: Dipti Gonzalez M.D. on 10/25/2021 at 9:00
== END ==
PROVIDERS: Family Provider Family Medicine; PCP Family Medicine; Referring Provider Family Medicine; Visit Provider Family Medicine
DX: I62.00 Nontraumatic subdural hemorrhage, unspecified (principal); R55 Syncope and collapse; R26.2 Difficulty in walking, not elsewhere classified
CPT/HCPCS: 70548; 70553

== ENCOUNTER 2021-10-25 08:54 | Emergency (ER) | payer MEDICARE, SELFPAY ==
[2021-09-21 14:58] VITALS: BMI 25.6
[2021-10-25 09:00] VITALS: BP 153/70; PULSE 62; RESP 15; TEMP 36.8; O2SAT 97; BMI 29.8
[2021-10-25 09:13] VITALS: BP 153/70; PULSE 60; O2SAT 97
--- NOTE | 2021-10-25 09:19 | DI.RAD.S_ITS ---
PROCEDURE: XR THORACIC SPINE 3V INDICATIONS: fall 1 month ago now loss of urine TECHNIQUE: 3 views of the thoracic spine were acquired. COMPARISON: None. FINDINGS: Bones: No fractures or dislocations. No suspicious bony lesions. Multilevel disc space narrowing and endplate osteophyte formation. Soft tissues: No paravertebral stripe thickening. IMPRESSION: Multilevel degenerative disc disease. No acute fracture. No osseous lesion. If symptoms and/or clinical suspicion for pathology persist, further assessment with repeat, or advanced imaging (e.g., CT, MRI, or bone scan) may be helpful for further assessment. Dictated by: Luis M Camacho M.D. on 10/25/2021 at 9:55 Approved by: Luis M Camacho M.D. on 10/25/2021 at 9:56
--- NOTE | 2021-10-25 09:19 | DI.RAD.S_ITS ---
PROCEDURE: XR LUMBAR SPINE 2-3V INDICATIONS: fall1 month ago now loss of urine TECHNIQUE: 3 views of the lumbar spine were acquired. COMPARISON: [facility], , -SPINE 2-3 VIEWS, 12/03/2011, 16:22. FINDINGS: Bones: 5 euy-jve-yszlpvn vertebrae are present. There is normal bony alignment. Multilevel disc space narrowing and endplate osteophyte formation. Facet hypertrophy throughout the mid and lower lumbar spine. No vertebral body compression fractures. No suspicious bony lesions. Soft tissues: Overlying bowel gas pattern is normal. No suspicious soft tissue calcifications. IMPRESSION: 1. Multilevel degenerative disc and facet disease. 2. No acute fracture. No osseous lesion. If symptoms and/or clinical suspicion for pathology persist, further assessment with repeat, or advanced imaging (e.g., CT, MRI, or bone scan) may be helpful for further assessment. Dictated by: Luis M Camacho M.D. on 10/25/2021 at 9:56 Approved by: Luis M Camacho M.D. on 10/25/2021 at 9:57
--- NOTE | 2021-10-25 09:22 | ED_ITS ---
HPI - Fall General Chief Complaint: Fall Stated Complaint: Brain bleed Time Seen by Provider: 10/25/21 09:05 History of Present Illness HPI Narrative: Patient is a 76-year-old male history of hyperlipidemia, depression hypertension, ascending aortic enlargement presenting from MRI stroke protocol with bilateral subdurals, measuring about 2 cm along frontal temporal and parietal lobes. There is no midline shift. On 09/17/2021 he had a syncopal episode resulting in a fall in loss of consciousness. They were apparently moving papers from the back porch to the driveway when heard him fall and immediately ran to him and he was found unresponsive for 2-3 minutes. He had a full workup in the emergency department he was admitted overnight for monitoring and discharged the following day. states that over last 8 days. He has had some urinary incontinence. He has been tripping over his own feet in generally not feeling great. He has a very minimal headache which he says goes away once he has his morning expresso. He was seen and evaluated by his PCP on 10/24/2021 concern for a shuffling gait. He has had some shoulder soreness and generalized weakness. An outpatient MRI ordered and done this morning. Radiology called me with results. Today He has no nausea or vomiting. He says like he feels like his feet get stuck on the floor and then he falls. He denies any back pain numbness tingling or weakness. He has no chest pain palpitations or shortness of breath. Related Data Home Medications Medication Instructions Recorded Confirmed Glucosamine Hydrochloride 500 mg PO Q DAY ##0 03/23/11 10/24/21 (#GLUCOSAMINE) ascorbic acid (vitamin C) 500 mg 1,000 mg PO QDAY ##0 07/31/12 10/24/21 tablet Resprion[employer] Dreamstation CPAP #1 ea 09/01/18 10/24/21 Vitamin D (with calcium) 1 tab PO DAILY 09/17/21 10/24/21 atorvastatin 40 mg tablet 20 mg PO DAILY 09/17/21 10/24/21 loratadine 10 mg tablet (Claritin) 10 mg PO DAILY 09/17/21 10/24/21 methylsulfonylmethane 500 mg mg PO DAILY 09/17/21 10/24/21 capsule metoprolol succinate 50 mg 50 mg PO DAILY 09/17/21 10/24/21 tablet,extended release 24 hr multivitamin with minerals 1 tab PO DAILY 09/17/21 10/24/21 paroxetine HCl 20 mg tablet 20 mg PO DAILY 09/17/21 10/24/21 zinc 1 tab PO DAILY 09/17/21 10/24/21 Previous Rx's Medication Instructions Recorded losartan 100 1 tab PO DAILY #90 tabs 08/14/21 mg-hydrochlorothiazide 12.5 mg tablet doxycycline hyclate 100 mg capsule 100 mg PO BID #14 caps 09/22/21 tamsulosin 0.4 mg capsule 0.4 mg PO BEDTIME #60 caps 10/20/21 Allergies Allergy/AdvReac Type Severity Reaction Status Date / Time ibuprofen [IBUPROFEN] Allergy Intermediate HIVES Verified 10/25/21 09:27 Review of Systems Review of Systems Narrative: GENERAL: Denies chills, fatigue, malaise, fever, sweats, travel HEENT: Denies sinus pain, ear pain, sore throat, difficulty swallowing, neck pain RESPIRATORY: Denies dyspnea, cough, wheezing, hemoptysis, sputum. CARDIOVASCULAR: Denies chest pain, palpitations, orthopnea, edema GASTROINTESTINAL: Denies nausea, vomiting, abdominal pain, diarrhea, constipation, melena. : Denies dysuria, frequency, incontinence, hematuria, urinary retention, flank pain. MUSCULOSKELETAL: Denies weakness, joint pain, or bony pain SKIN: No rash, no erythema, no pruritus NEUROLOGIC: See HPI PSYCHIATRIC: No concerning psychosocial issues. 12 point review of systems is negative except for those stated above and HPI Patient History Medical History Ascending aorta enlargement Chronic congestion of paranasal sinus Difficulty walking Hay fever Hearing deficit Hepatic cyst History of colonic polyps (03/23/11) Obstructive sleep apnea of adult Sleep apnea Vision disorder Surgical History Anesthesia Status post hernia repair Status post rotator cuff repair Family History Mother Heart disease Social History marital status: details: to Stephanie household members: spouse lives independently: Yes caregiver/support person: No 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 Smoking Status: Never smoker alcohol intake: current substance use type: does not use Type(s) of exercise: bicycling and regular exercise frequency: 5-6 times per week Smoking Status: Never smoker alcohol intake frequency: a few times a week Substance Use Type: does not use Exam Initial Vital Signs Initial Vital Signs: Vital Signs Temperature 98.3 F 10/25/21 09:00 Pulse Rate 62 10/25/21 09:00 Respiratory Rate 15 10/25/21 09:00 Blood Pressure 153/70 H 10/25/21 09:00 Pulse Oximetry 97 10/25/21 09:00 Oxygen Delivery Method 10/25/21 09:00 GENERAL: Alert funny pleasant 76-year-old male and in no acute distress. HEENT: Head atraumatic,EOMI, pupils reactive, face symmetric, moist mucous membranes CARDIOVASCULAR: Regular rate and rhythm without murmurs, rubs or gallops. RESPIRATORY: Breath sounds equal bilaterally, no wheezes rales or rhonchi. ABDOMEN: Soft, nontender. Normoactive bowel sounds all 4 quadrants. No guarding or rebound. BACK: No vertebral tenderness no step-off EXTREMITIES: Normal range of motion, no clubbing or edema. Neurovascularly intact NEUROLOGICAL: Alert and oriented x4.Normal gait and speech. Cranial nerves II through XII grossly intact. Good mgqvvo-zv-hiir, good mczm-sy-jzlr, strength equal bilaterally, no dysarthria or aphasia, sensation in tact to soft touch bilaterally, no visual changes, no facial droop SKIN: Warm, dry, no laceration, no petechiae, no rashes or lesions. Scores NIH Stroke Scale Level of Conciousness: Alert, keenly responsive Ask month/age: Answers both questions correctly. Open/close eyes, close hand: Performs both tasks correctly Best gaze horizontal: Normal Visual saxena: No visual loss Facial palsy: Normal symetrical movement Left arm drift: No drift for full 10 sec Right arm drift: No drift for full 10 sec Left leg drift: No drift for full 5 sec Right leg drift: No drift for full 5 sec Limb ataxia: Absent Sensory on face/arms/legs: Normal, no sensory loss Best language: No aphasia, normal Dysarthria: Normal Extinction or inattention: No abnormality Total NIH Stroke scale score: 0 Course Orders Ordered: ED Orders 10/25/21 10:25 CT head/brain wo con Stat Vital Signs Vital signs: Vital Signs - 8 hr 08/24/22 09:00 10/25/21 09:13 10/25/21 09:13 Temperature 98.3 F Pulse Rate 62 60 Respiratory Rate 15 Blood Pressure 153/70 H 153/70 H Pulse Oximetry 97 97 Oxygen Delivery Method Room Air 10/25/21 09:37 10/25/21 09:38 10/25/21 09:38 Temperature Pulse Rate 58 L 59 L Respiratory Rate 14 12 Blood Pressure 134/66 Pulse Oximetry 98 98 Oxygen Delivery Method 10/25/21 10:00 10/25/21 10:00 Temperature Pulse Rate 59 L Respiratory Rate 19 Blood Pressure 154/70 H Pulse Oximetry 97 Oxygen Delivery Method MDM - Fall Lab Data Result diagrams: 10/25/21 09:22 10/25/21 09:22 Labs: Lab Results 10/25/21 10/25/21 10/25/21 Range/Units 09:22 09:22 09:22 WBC 6.7 (4.5-11.0) X10^3/uL RBC 4.30 L (4.5-5.9) X10^6/uL Hgb 12.5 L (13.5-17.5) g/dL Hct 36.9 L (41-53) % MCV 85.9 (80-100) fL MCH 29.2 (26-34) PG MCHC 34.0 (30-36) % RDW 14.1 (11.6-14.8) % Plt Count 235 (150-400) X10^3/uL Neut % (Auto) 62.6 (50-75) % Lymph % (Auto) 20.2 L (25-40) % [place] % (Auto) 12.1 (3-14) % Eos % (Auto) 4.4 H (2-4) % Baso % (Auto) 0.7 (0-2) % Neut # (Auto) 4200 (4841-2886) /uL Lymph # (Auto) 1300 (5138-1082) /uL [place] # (Auto) 800 (0-900) /uL Eos # (Auto) 300 (0-450) /uL Baso # (Auto) 0 (0-100) /uL PT 12.8 H (10.1-12.7) SECONDS INR 1.1 (0.9-1.3) APTT 32 (26-36) SECONDS Sodium 139 (137-145) mmol/L Potassium 4.1 (3.4-5.1) mmol/L Chloride 103 (98-107) mmol/L Carbon Dioxide 30 (22-32) mmol/L BUN 19 (9-20) mg/dL Creatinine 0.82 (0.66-1.25) mg/dL Estimated GFR > 60 (>60) mL/min BUN/Creatinine Ratio 23.2 H (6-22) Glucose 102 (80-110) mg/dL Calcium 9.3 (8.4-10.2) mg/dL Total Bilirubin 0.4 (0.2-1.3) mg/dL AST 36 (17-59) IU/L ALT 19 (<50) IU/L Alkaline Phosphatase 53 (38-126) U/L Total Creatine Kinase 56 (55-170) U/L CK-MB (CK-2) TNP CK-MB (CK-2) Rel Index TNP Troponin I < 0.012 (0.01-0.034) ng/mL Total Protein 7.5 (6.3-8.2) g/dL Albumin 4.1 (3.5-5.0) g/dL Globulin 3.4 (1.7-4.1) g/dL Albumin/Globulin Ratio 1.2 (1.0-2.8) Lipase 116 (23-300) U/L SARS-CoV-2 (PCR) (Negative) 10/25/21 Range/Units 09:22 WBC (4.5-11.0) X10^3/uL RBC (4.5-5.9) X10^6/uL Hgb (13.5-17.5) g/dL Hct (41-53) % MCV (80-100) fL MCH (26-34) PG MCHC (30-36) % RDW (11.6-14.8) % Plt Count (150-400) X10^3/uL Neut % (Auto) (50-75) % Lymph % (Auto) (25-40) % [place] % (Auto) (3-14) % Eos % (Auto) (2-4) % Baso % (Auto) (0-2) % Neut # (Auto) (6860-6565) /uL Lymph # (Auto) (2040-5574) /uL [place] # (Auto) (0-900) /uL Eos # (Auto) (0-450) /uL Baso # (Auto) (0-100) /uL PT (10.1-12.7) SECONDS INR (0.9-1.3) APTT (26-36) SECONDS Sodium (137-145) mmol/L Potassium (3.4-5.1) mmol/L Chloride (98-107) mmol/L Carbon Dioxide (22-32) mmol/L BUN (9-20) mg/dL Creatinine (0.66-1.25) mg/dL Estimated GFR (>60) mL/min BUN/Creatinine Ratio (6-22) Glucose (80-110) mg/dL Calcium (8.4-10.2) mg/dL Total Bilirubin (0.2-1.3) mg/dL AST (17-59) IU/L ALT (<50) IU/L Alkaline Phosphatase (38-126) U/L Total Creatine Kinase (55-170) U/L CK-MB (CK-2) CK-MB (CK-2) Rel Index Troponin I (0.01-0.034) ng/mL Total Protein (6.3-8.2) g/dL Albumin (3.5-5.0) g/dL Globulin (1.7-4.1) g/dL Albumin/Globulin Ratio (1.0-2.8) Lipase (23-300) U/L SARS-CoV-2 (PCR) Negative (Negative) Imaging Data MR Brain: Radiologist's Impression: Magnetic Resonance Report Signed Patient: Indra Purdy MR#: [id number] : 1945 Acct:[id number] Age/Sex: 76 / M Date of Service: 10/25/21 Loc: MRI Accession Number: [id number] ?? Procedure: MR stroke Ordering Provider: Donato Hidalgo MD PROCEDURE:? MR STROKE Pre- and post-contrast brain MRI, non-contrast brain MR angiogram, pre- and postcontrast neck MR angiogram ? INDICATIONS:? Difficulty walking, incontinence ? TECHNIQUE:? Brain:? Noncontrast axial T1 spin echo, axial T2 fast spin echo, sagittal and axial FLAIR, coronal T2 fast spin echo, axial gradient echo, axial diffusion and ADC through the brain.? After the administration of contrast, axial 3D VIBE of the cranial vasculature and brain.? Brain MRA:? Non-contrast 3-D time of flight MR angiogram, with multiple utfkjbp-aaujnfgwt-eehqshpcst (MIP) reformats performed.? Neck MRA:? Axial and sagittal TruFISP through the neck.? Coronal dynamic MR angiogram during administration of contrast in the arterial and venous phases, with 3- dimenstional svkknvh-wdviqasey-ksegzyimor (MIP) reformats constructed from subtraction images.? ? COMPARISON:? [facility], CT, CT HEAD/BRAIN WO CON, 09/17/2021, 12:54. ? FINDINGS:? Image quality:? Excellent.? ? BRAIN:? The ventricular system and cortical sulci demonstrate atrophy, consistent for the patient's stated age. There are areas of increased T2/FLAIR signal intensity within the periventricular and subcortical white matter.? In the interval since the prior exam, there are bilateral extra-axial fluid collections predominantly within the frontal parietal and temporal lobes.? Greatest transverse dimension measures 1.9 cm.? There is no midline shift.? It is hyperintense on T1 and T2 as well as FLAIR as well as hyp ointense on gradient sequence.? Brainstem is unremarkable. There are no areas of restricted diffusion. Globes are symmetrical. Sinuses are aerated. Osseous structures are intact. ? BRAIN MR ANGIOGRAM:? Anterior circulation:? Intracranial internal carotid arteries are normal in size and enhancement.? The flow within the paired anterior cerebral arteries is normal and symmetric.? There is a mild minute of appearance the distal right M1 segment with distal flow.? No priors are available for comparison.? The anterior communicating artery is seen.? No stenoses, occlusions, or aneurysms.? Posterior circulation:? The visualized portions of the vertebral arteries demonstrate normal caliber, and join to form a normal appearing basilar artery.? The flow within the posterior cerebral arteries is normal and symmetric.? No stenoses, occlusions, or aneurysms.? ? NECK MR ANGIOGRAM:? Carotids:? Great vessels demonstrate a conventional anatomy as they arise from the aortic arch.? The origins of the common carotid arteries appear patent.? The calibers and courses of both common carotid arteries are normal.? The bifurcation regions appear normal bilaterally.? The internal carotid arteries demonstrate normal course and caliber. ? Posterior circulation:? The origins of the vertebral arteries appear patent.? More superior portions of both vertebral arteries demonstrate normal course and caliber, and join to form a normal appearing basilar artery.? Miscellaneous:? Subclavian arteries appear patent.? Pre-contrast images through the neck show no soft tissue abnormalities.? ? IMPRESSION:? ? Interval development of bilateral subdural hematomas as described above without midline shift. ? Diminutive appearance of the right M1 segment of the middle cerebral artery without associated acute infarction.? This is suspected to be chronic or congenital asymmetry.? If concern persists, CT a may be obtained. ? No areas of hemodynamically significant stenosis, vascular occlusion or aneurysmal dilation within the neck vasculature. ? The above findings were called to Dr. Donato Hidalgo, who was not in the office.? Dr. Valentine, covering for Dr. Hidalgo directed patient to ED for further evaluation.? Case was discussed with Dr. Kadie Nguyen in the ED on 10/25/21 at 8:45 a.m.? Patient will be brought from imaging department to ED.? ? ? Dictated by: Dipti Gonzalez M.D. on 10/25/2021 at 8:37 ?? XR thoracic: Radiologist's Impression: XRay Report Signed Patient: Indra Purdy MR#: [id number] : 1945 Acct:[id number] Age/Sex: 76 / M Date of Service: 10/25/21 Loc: ED Accession Number: [id number] ?? Procedure: XR thoracic spine 3V Ordering Provider: Kadie Nguyen D.O. PROCEDURE:? XR THORACIC SPINE 3V ? INDICATIONS:? fall 1 month ago now loss of urine ? TECHNIQUE:? 3 views of the thoracic spine were acquired.? ? COMPARISON:? None. ? FINDINGS:? ? Bones:? No fractures or dislocations.? No suspicious bony lesions.? Multilevel disc space narrowing and endplate osteophyte formation. ? Soft tissues:? No paravertebral stripe thickening.? ? ? IMPRESSION:? Multilevel degenerative disc disease.? No acute fracture. No osseous lesion. If symptoms and/or clinical suspicion for pathology persist, further assessment with repeat, or advanced imaging (e.g., CT, MRI, or bone scan) may be helpful for further assessment. ? Dictated by: Luis M Camacho M.D. on 10/25/2021 at 9:55 ? ? Approved by: Luis M Camacho M.D. on 10/25/2021 at 9:56 ? XR Lumbar: Radiologist's Impression: Acct:[id number] Age/Sex: 76 / M Date of Service: 10/25/21 Loc: ED Accession Number: [id number] ?? Procedure: XR lumbar spine 2-3V Ordering Provider: Kadie Nguyen D.O. PROCEDURE:? XR LUMBAR SPINE 2-3V ? INDICATIONS:? fall1 month ago now loss of urine ? TECHNIQUE:? 3 views of the lumbar spine were acquired.? ? COMPARISON:? [facility], , L-SPINE 2-3 VIEWS, 12/03/2011, 16:22. ? FINDINGS:? ? Bones:? 5 cri-gar-rsrbgjo vertebrae are present.? There is normal bony alignment.? Multilevel disc space narrowing and endplate osteophyte formation.? Facet hypertrophy throughout the mid and lower lumbar spine.? No vertebral body compression frac tures.? No suspicious bony lesions.? ? Soft tissues:? Overlying bowel gas pattern is normal.? No suspicious soft tissue calcifications.? ? ? IMPRESSION:? 1. Multilevel degenerative disc and facet disease. 2. No acute fracture. No osseous lesion. If symptoms and/or clinical suspicion for pathology persist, further assessment with repeat, or advanced imaging (e.g., CT, MRI, or bone scan) may be helpful for further assessment. ? ? Dictated by: Luis M Camacho M.D. on 10/25/2021 at 9:56 ?? CT scan - head: Radiologist's Impression: DONNIE [facility] [id number] CT Scan Report Signed Patient: Indra Purdy MR#: [id number] : 1945 Acct:[id number] Age/Sex: 76 / M Date of Service: 10/25/21 Loc: ED Accession Number: [id number] ?? Procedure: CT head/brain wo con Ordering Provider: Kadie Nguyen D.O. PROCEDURE:? CT HEAD/BRAIN WO CON ? INDICATIONS:? bilateral subdural--send to ? TECHNIQUE:? Noncontrast 5 mm thick angled axial sections acquired from the foramen magnum to the vertex, with coronal and sagittal reformats.? For radiation dose reduction, the following was used:? automated exposure control, adjustment of mA and/or kV ac cording to patient size.? ? COMPARISON:? [facility], MR, MR STROKE, 10/25/2021, 7:21.? [facility], CT, CT HEAD/BRAIN WO CON, 09/17/2021, 12:54. ? FINDINGS:? Image quality:? Excellent.? ? CSF spaces:? Basal cisterns are patent.? No extra-axial fluid collections.? Ventricles are normal in size and shape.? ? Brain:? Bilateral mixed density subdural hematomas measure up to 1.4 cm in thickness on the left and 1.2 cm on the right.? There is mass effect on the cortex, but no midline shift.? No evidence of parenchymal hemorrhage.? Underlying atrophy and trace chronic ischemic change. ? Skull and face:? Calvarium and visualized facial bones are intact, without suspicious lesions.? ? Sinuses:? Visualized sinuses and mastoids are clear.? ? IMPRESSION:? ? Mixed density bilateral subdural hematomas, probably acute.? Cortical symmetric mass effect but no midline shift.? No parenchymal hemorrhage.? Approved by: Shola Galvan M.D. on 10/25/2021 at 10:00? [facility] Narrative Medical decision making narrative: Patient sinus is neurologically intact found to have bilateral subdurals on an outpatient them are. He is also having some urinary incontinence back is nontender x-rays do not show any gross fracture. He is not on any anti-platelet or anticoagulation medication. 10:15 Dr. Rai, neurosurgery at [facility] has been updated on patient's symptoms test results and happily accepts patient. requests CT non contrast head. ED at [facility] accepts Patient remains neurologically intact. Difficult to tell how long he has had bilateral subdurals. Stable for transport. Discharge Plan Departure Patient Disposition: Xfer [facility] Clinical Impression: Bilateral subdural hematomas Prescriptions: No Action Glucosamine Hydrochloride (#GLUCOSAMINE) 500 mg PO Q DAY Qty: 0 ascorbic acid (vitamin C) 500 MG tablet 1,000 mg PO QDAY Qty: 0 tamsulosin 0.4 mg capsule 0.4 mg PO BEDTIME Qty: 60 0RF losartan-hydrochlorothiazide 100-12.5 mg tablet 1 tab PO DAILY Qty: 90 3RF doxycycline hyclate 100 mg capsule 100 mg PO BID Qty: 14 0RF atorvastatin 40 mg tablet 20 mg PO DAILY metoprolol succinate 50 mg tablet extended release 24 hr 50 mg PO DAILY paroxetine HCl 20 mg tablet 20 mg PO DAILY loratadine [Claritin] 10 mg Tablet 10 mg PO DAILY methylsulfonylmethane 500 mg Capsule PO DAILY Vitamin D (with calcium) 1 tab PO DAILY multivitamin with minerals 1 tab PO DAILY zinc 1 tab PO DAILY (DME) [employer] Dreamstation CPAP Qty: 1 Dose Instruction: As directed Label Comments: Pressure: 8-16 cmH2O DME: [facility] Rx Instructions: As directed Referrals: Donato Hidalgo MD [Primary Care Provider] -
[2021-10-25 09:32] LABS: Add Manual Diff / Slide Review NO; Basophils Absolute Auto 0 /uL (0-100); Basophils Percent Auto 0.7 % (0-2); Eosinophils Absolute Auto 300 /uL (0-450); Eosinophils Percent Auto 4.4 % (2-4); Hematocrit 36.9 % (41-53); Hemoglobin 12.5 g/dL (13.5-17.5); Lymphocytes Absolute Auto 1300 /uL (1100-4500); Lymphocytes Percent Auto 20.2 % (25-40); Mean Corpuscular Hemoglobin 29.2 PG (26-34); Mean Corpuscular Volume 85.9 fL (80-100); Monocytes Absolute Auto 800 /uL (0-900); Monocytes Percent Auto 12.1 % (3-14); Neutrophils Absolute Auto 4200 /uL (1500-7000); Neutrophils Percent Auto 62.6 % (50-75); Platelet Count 235 X10^3/uL (150-400); Red Cell Distribution Width 14.1 % (11.6-14.8); White Blood Cell Count 6.7 X10^3/uL (4.5-11.0)
[2021-10-25 09:37] VITALS: PULSE 58; RESP 14; O2SAT 98
[2021-10-25 09:38] VITALS: BP 134/66; PULSE 59; RESP 12; O2SAT 98
[2021-10-25 09:40] LABS: INR 1.1 (0.9-1.3); Prothrombin Time 12.8 SECONDS (10.1-12.7)
[2021-10-25 09:43] LABS: PTT Partial Thromboplastin Tim 32 SECONDS (26-36)
[2021-10-25 09:45] LABS: Alanine Aminotransferase 19 IU/L (<50); Albumin 4.1 g/dL (3.5-5.0); Albumin Globulin Ratio 1.2 (1.0-2.8); Alkaline Phosphatase 53 U/L (38-126); Aspartate Aminotransferase 36 IU/L (17-59); BUN Creatinine Ratio 23.2 (6-22); Bilirubin Total 0.4 mg/dL (0.2-1.3); Blood Urea Nitrogen 19 mg/dL (9-20); Calcium 9.3 mg/dL (8.4-10.2); Carbon Dioxide 30 mmol/L (22-32); Chloride 103 mmol/L (98-107); Creatine Kinase 56 U/L (55-170); Estimated Glomerular Filt Rate > 60 mL/min (>60); Globulin 3.4 g/dL (1.7-4.1); Glucose 102 mg/dL (80-110); HEMOLYSIS 16 (0-50); Lipase 116 U/L (23-300); Potassium 4.1 mmol/L (3.4-5.1); Sodium 139 mmol/L (137-145); Total Protein 7.5 g/dL (6.3-8.2)
[2021-10-25 09:48] LABS: COVID19 -Nasal RAPID Negative (Negative)
[2021-10-25 09:57] LABS: Troponin I < 0.012 ng/mL (0.01-0.034)
[2021-10-25 10:00] VITALS: BP 154/70; PULSE 59; RESP 19; O2SAT 97
--- NOTE | 2021-10-25 10:25 | DI.CT.S_ITS ---
PROCEDURE: CT HEAD/BRAIN WO CON INDICATIONS: bilateral subdural--send to [facility] TECHNIQUE: Noncontrast 5 mm thick angled axial sections acquired from the foramen magnum to the vertex, with coronal and sagittal reformats. For radiation dose reduction, the following was used: automated exposure control, adjustment of mA and/or kV according to patient size. COMPARISON: [facility], MR, MR STROKE, 10/25/2021, 7:21. [facility], CT, CT HEAD/BRAIN WO CON, 09/17/2021, 12:54. FINDINGS: Image quality: Excellent. CSF spaces: Basal cisterns are patent. No extra-axial fluid collections. Ventricles are normal in size and shape. Brain: Bilateral mixed density subdural hematomas measure up to 1.4 cm in thickness on the left and 1.2 cm on the right. There is mass effect on the cortex, but no midline shift. No evidence of parenchymal hemorrhage. Underlying atrophy and trace chronic ischemic change. Skull and face: Calvarium and visualized facial bones are intact, without suspicious lesions. Sinuses: Visualized sinuses and mastoids are clear. IMPRESSION: Mixed density bilateral subdural hematomas, probably acute. Cortical symmetric mass effect but no midline shift. No parenchymal hemorrhage. Approved by: Shola Galvan M.D. on 10/25/2021 at 10:00
== END 2021-10-25 11:43 | disposition short-term general hospital (02) ==
PROVIDERS: Emergency Provider Emergency Medicine; Family Provider Family Medicine; PCP Family Medicine
DX: S06.5X9A Traumatic subdural hemorrhage with loss of consciousness of unspecified duration, initial encounter (principal); W19.XXXA Unspecified fall, initial encounter; Z20.822 Contact with and (suspected) exposure to COVID-19; R55 Syncope and collapse; R26.2 Difficulty in walking, not elsewhere classified; I62.00 Nontraumatic subdural hemorrhage, unspecified
CPT/HCPCS: 36415; 70450; 70548; 70553; 72072; 72100; 80053; 82550; 83690; 84484; 85025; 85610; 85730; 87635; 99284; C9803

== ENCOUNTER 2021-11-03 22:12 | Emergency (ER) | payer MEDICARE, SELFPAY ==
[2021-09-21 14:58] VITALS: BMI 25.6
--- NOTE | 2021-11-03 22:12 | ED.NEUROSD ---
HPI - Neuro Symptoms/Deficit General Chief Complaint: Neuro Symptoms/Deficit Stated Complaint: Weakness Time Seen by Provider: 11/03/21 22:20 History of Present Illness HPI Narrative: 76-year-old male with history of recent fall with head injury resulting in bilateral subdurals and subsequent transfer to [facility] for neurosurgical intervention including bilateral nohemy holes for hematoma evacuation hyperlipidemia, depression, hypertension, ascending aortic enlargement presenting by EMS for evaluation of concerning symptoms including inability to control his right upper extremity for a period of time prior to his arrival. He was alert and oriented during the episode and states that the only symptom she had was in his right arm was bouncing and twitching and he was unable to control it. He 1st noticed it when he was attempting to brush his teeth prior to going to bed tonight in his toothbrush kept falling out of his hand because his hand was twitching. It had resolved prior to his arrival without intervention. He denies blurred vision or trouble with speech. He is not dizzy nor weak or lightheaded. He is no chest pain or shortness of breath. He is had no falls, injuries or trauma. He is otherwise well and free of complaint. He is never had any seizure history or similar problem in the aftermath his recent surgery Related Data Home Medications Medication Instructions Recorded Confirmed Glucosamine Hydrochloride 500 mg PO Q DAY ##0 03/23/11 11/03/21 (#GLUCOSAMINE) ascorbic acid (vitamin C) 500 mg 1,000 mg PO QDAY ##0 07/31/12 11/03/21 tablet [employer] Dreamstation CPAP #1 ea 09/01/18 11/03/21 Vitamin D (with calcium) 1 tab PO DAILY 09/17/21 11/03/21 atorvastatin 40 mg tablet 20 mg PO DAILY 09/17/21 11/03/21 loratadine 10 mg tablet (Claritin) 10 mg PO DAILY 09/17/21 11/03/21 methylsulfonylmethane 500 mg mg PO DAILY 09/17/21 11/03/21 capsule metoprolol succinate 50 mg 50 mg PO DAILY 09/17/21 11/03/21 tablet,extended release 24 hr multivitamin with minerals 1 tab PO DAILY 09/17/21 11/03/21 paroxetine HCl 20 mg tablet 20 mg PO DAILY 09/17/21 11/03/21 zinc 1 tab PO DAILY 09/17/21 11/03/21 Previous Rx's Medication Instructions Recorded losartan 100 1 tab PO DAILY #90 tabs 08/14/21 mg-hydrochlorothiazide 12.5 mg tablet doxycycline hyclate 100 mg capsule 100 mg PO BID #14 caps 09/22/21 tamsulosin 0.4 mg capsule 0.4 mg PO BEDTIME #60 caps 10/20/21 levetiracetam 500 mg tablet 500 mg PO BID #14 tabs 11/04/21 (Keppra) Allergies Allergy/AdvReac Type Severity Reaction Status Date / Time ibuprofen [IBUPROFEN] Allergy Intermediate HIVES Verified 11/03/21 13:04 Review of Systems Review of Systems Narrative: GENERAL: Denies chills, fatigue, malaise, fever, sweats. HEENT: Denies sinus pain, ear pain, sore throat, difficulty swallowing, dizziness. RESPIRATORY: Denies dyspnea, cough, wheezing, hemoptysis, sputum. CARDIOVASCULAR: Denies chest pain, palpitations, orthopnea, edema, GASTROINTESTINAL: Denies nausea, vomiting, abdominal pain, diarrhea, constipation, melena. : Denies dysuria, frequency, incontinence, hematuria, urinary retention. MUSCULOSKELETAL: denies weakness, joint pain, or bony pain SKIN: Denies rash, skin lesions, or other NEUROLOGIC: See HPI PSYCHIATRIC: No concerning psychosocial issues. 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 Well-developed patient, in mild distress., admittedly anxious, GCS 15 HEAD: Atraumatic. Normocephalic. External evidence of recent neurosurgical intervention, no swelling, redness, drainage or other abnormality EYES: Pupils equal round and reactive. Extraocular motions intact. No scleral icterus. No injection or drainage. ENT: Nose without bleeding, purulent drainage. Throat without erythema, tonsillar hypertrophy or exudate. Airway patent. NECK: Trachea midline. Non tender CARDIOVASCULAR: Regular rate and rhythm without murmurs, gallops, or rubs. RESPIRATORY: Clear to auscultation. Breath sounds equal bilaterally. No wheezes, rales, or rhonchi. GASTROINTESTINAL: Abdomen soft, non-tender, nondistended. EXTREMITIES: No edema or joint tenderness. BACK: Nontender without deformity or crepitance. No flank tenderness. NEURO: AOx3. SKIN: No rash or erythema of visible areas Initial Vital Signs Initial Vital Signs: Vital Signs Temperature 98.1 F 11/03/21 22:39 Pulse Rate 71 11/03/21 22:39 Respiratory Rate 18 11/03/21 22:39 Blood Pressure 160/76 H 11/03/21 22:39 Pulse Oximetry 97 11/03/21 22:39 Oxygen Delivery Method 11/03/21 22:39 Course Orders Ordered: ED Orders 11/03/21 22:15 Complete Blood Count AUTO DIFF Stat Comprehensive Metabolic Panel Stat Prothrombin Time INR Stat Troponin & CK Cardiac Panel Stat 11/03/21 22:17 CT head/brain wo con Stat 11/03/21 22:47 COVID19 -Nasal RAPID/Pre-Proc Stat Discontinued Medications Levetiracetam 500 mg/ Sodium (Chloride) 105 mls @ 420 mls/hr IV NOW ONE Stop: 11/04/21 02:58 Last Admin: 11/04/21 03:13 Dose: 420 mls/hr Consultations Consultation #1: Images pushed to [facility] and calls placed to discuss with Neurosurgery, compare imaging and discuss a plan moving forward Consultation #2: [id number] - call back from [facility] Neurosurgery. They have reviewed the images and agree that there is no change or significant abnormality from prior. After discussion of history and physical they suggest this is likely a brief simple focal seizure which is not terribly surprising given his recent clinical course. They recommend Keppra 500 mg b.i.d. for 7 days and follow-up as previously planned Vital Signs Vital signs: Vital Signs - 8 hr 11/03/21 22:39 11/03/21 22:50 11/03/21 22:51 Temperature 98.1 F Pulse Rate 71 73 74 Respiratory Rate 18 21 20 Blood Pressure 160/76 H Pulse Oximetry 97 99 98 Oxygen Delivery Method Room Air 11/03/21 22:51 11/03/21 23:00 11/03/21 23:00 Temperature Pulse Rate 72 Respiratory Rate 24 Blood Pressure 165/76 H 169/76 H Pulse Oximetry 98 Oxygen Delivery Method 11/03/21 23:30 11/03/21 23:30 11/04/21 00:00 Temperature Pulse Rate 74 Respiratory Rate 15 Blood Pressure 183/83 H 188/83 H Pulse Oximetry 98 Oxygen Delivery Method 11/04/21 00:00 11/04/21 00:30 11/04/21 01:00 Temperature Pulse Rate 71 78 Respiratory Rate 21 25 H Blood Pressure 175/81 H Pulse Oximetry 97 94 Oxygen Delivery Method 11/04/21 01:00 11/04/21 01:30 11/04/21 01:30 Temperature Pulse Rate 73 77 Respiratory Rate 18 19 Blood Pressure 181/81 H Pulse Oximetry 95 96 Oxygen Delivery Method 11/04/21 02:00 11/04/21 02:01 11/04/21 02:01 Temperature Pulse Rate 70 70 Respiratory Rate 27 H 20 Blood Pressure 169/76 H Pulse Oximetry 94 95 Oxygen Delivery Method 11/04/21 02:30 11/04/21 02:30 11/04/21 03:00 Temperature Pulse Rate 69 Respiratory Rate 31 H Blood Pressure 149/71 H 160/75 H Pulse Oximetry 96 Oxygen Delivery Method 11/04/21 03:00 Temperature Pulse Rate 72 Respiratory Rate 18 Blood Pressure Pulse Oximetry 97 Oxygen Delivery Method MDM - Neuro Symptoms/Deficit Lab Data Result diagrams: 11/03/21 22:15 11/03/21 22:15 Labs: Lab Results 11/03/21 11/03/21 11/03/21 Range/Units 22:15 22:15 22:15 WBC 7.0 (4.5-11.0) X10^3/uL RBC 3.99 L (4.5-5.9) X10^6/uL Hgb 11.6 L (13.5-17.5) g/dL Hct 34.4 L (41-53) % MCV 86.1 (80-100) fL MCH 29.2 (26-34) PG MCHC 33.9 (30-36) % RDW 13.7 (11.6-14.8) % Plt Count 318 (150-400) X10^3/uL Neut % (Auto) 53.9 (50-75) % Lymph % (Auto) 30.9 (25-40) % [place]erry % (Auto) 10.2 (3-14) % Eos % (Auto) 3.8 (2-4) % Baso % (Auto) 1.2 (0-2) % Neut # (Auto) 3800 (2951-7784) /uL Lymph # (Auto) 2200 (4982-6752) /uL Ferry # (Auto) 700 (0-900) /uL Eos # (Auto) 300 (0-450) /uL Baso # (Auto) 100 (0-100) /uL PT 12.8 H (10.1-12.7) SECONDS INR 1.1 (0.9-1.3) Sodium 138 (137-145) mmol/L Potassium 4.1 (3.4-5.1) mmol/L Chloride 103 (98-107) mmol/L Carbon Dioxide 24 (22-32) mmol/L BUN 22 H (9-20) mg/dL Creatinine 0.80 (0.66-1.25) mg/dL Estimated GFR > 60 (>60) mL/min BUN/Creatinine Ratio 27.5 H (6-22) Glucose 121 H (80-110) mg/dL Calcium 8.9 (8.4-10.2) mg/dL Total Bilirubin 0.2 (0.2-1.3) mg/dL AST 26 (17-59) IU/L ALT 21 (<50) IU/L Alkaline Phosphatase 52 (38-126) U/L Total Creatine Kinase 57 (55-170) U/L CK-MB (CK-2) TNP CK-MB (CK-2) Rel Index TNP Troponin I < 0.012 (0.01-0.034) ng/mL Total Protein 7.4 (6.3-8.2) g/dL Albumin 3.9 (3.5-5.0) g/dL Globulin 3.5 (1.7-4.1) g/dL Albumin/Globulin Ratio 1.1 (1.0-2.8) SARS-CoV-2 (PCR) (Negative) 11/03/21 Range/Units 22:47 WBC (4.5-11.0) X10^3/uL RBC (4.5-5.9) X10^6/uL Hgb (13.5-17.5) g/dL Hct (41-53) % MCV (80-100) fL MCH (26-34) PG MCHC (30-36) % RDW (11.6-14.8) % Plt Count (150-400) X10^3/uL Neut % (Auto) (50-75) % Lymph % (Auto) (25-40) % Ferry % (Auto) (3-14) % Eos % (Auto) (2-4) % Baso % (Auto) (0-2) % Neut # (Auto) (7513-1691) /uL Lymph # (Auto) (4771-9624) /uL Ferry # (Auto) (0-900) /uL Eos # (Auto) (0-450) /uL Baso # (Auto) (0-100) /uL PT (10.1-12.7) SECONDS INR (0.9-1.3) Sodium (137-145) mmol/L Potassium (3.4-5.1) mmol/L Chloride (98-107) mmol/L Carbon Dioxide (22-32) mmol/L BUN (9-20) mg/dL Creatinine (0.66-1.25) mg/dL Estimated GFR (>60) mL/min BUN/Creatinine Ratio (6-22) Glucose (80-110) mg/dL Calcium (8.4-10.2) mg/dL Total Bilirubin (0.2-1.3) mg/dL AST (17-59) IU/L ALT (<50) IU/L Alkaline Phosphatase (38-126) U/L Total Creatine Kinase (55-170) U/L CK-MB (CK-2) CK-MB (CK-2) Rel Index Troponin I (0.01-0.034) ng/mL Total Protein (6.3-8.2) g/dL Albumin (3.5-5.0) g/dL Globulin (1.7-4.1) g/dL Albumin/Globulin Ratio (1.0-2.8) SARS-CoV-2 (PCR) Negative (Negative) Urine Dip Bedside Urine Glucose Negative Bedside Urine Bilirubin - Negative Bedside Urine Ketone - Negative Urine Specific [place] 1.015 Bedside Urine Occult Blood +/- Bedside Urine pH 6.0 Bedside Urine Protein - Negative Bedside Urine Urobilinogen - Negative Bedside Urine Nitrite - Negative Bedside Urine Leukocytes - Negative Esterase Imaging Data CT scan - head: Radiologist's Impression: ? Chart Viewer Diagnostics Subcategory All Activity ??:?? All Time ??:?? All Subcategories Filter Laboratory Imaging Microbiology Pathology Blood Bank Tests Cardiovascular Other Specialty DATE TYPE STATUS REF RANGE/AUTHOR Hx 11/03/21 22:[address] Signed Wilmer Shields 10/25/21 10:[address] Signed Cole,Shola 10/25/21 09:19 Thoracic Spine X-Ray Signed Luis M Camacho 10/25/21 09:19 Lumbar Spine X-Ray Signed Luis M Camacho 10/25/21 06:32 Brain MRI Signed Dipti Gonzalez 10/19/21 13:18 Hip X-Ray Signed Maxine Martinez 09/30/21 10:12 Abdomen MRI Signed Paras Blackwell 09/17/21 19:09 Carotid Doppler Study Signed Maxine Martinez 09/17/21 16:04 Telemetry Strips ? 09/17/21 13:40 Abdomen/Pelvis CT Signed Galvan,Shola 09/17/21 13:34 Chest CTA Signed Galavn,Shola 09/17/21 12:[address] Signed Galvan,Shola 09/17/21 12:42 Chest X-Ray Signed Galvan,Shola 09/17/21 12:[address] Signed Galvan,Shola 09/12/21 20:55 Radiology Report Cancelled Nuris Mart 09/12/21 20:55 Myocardial Perfusion Scan Nuc Med Signed Nuris Mart 12/27/20 08:07 Echocardiogram Ultrasound Signed Margarito Bey 12/23/20 14:30 EKG Rpt. LOVE 07/09/19 00:00 Knee MRI Signed Ike Lazar 04/20/19 21:[address] Signed Nicki Rudolph 04/20/19 21:43 Chest X-Ray Signed Yessenia Pacheco 04/20/19 09:07 EKG Rpt. With notes 11/04/18 00:00 Vascular Ultrasound Signed Iker Valero 10/20/18 08:14 Knee X-Ray Signed DanteKo 03/21/18 00:[address] Signed Ino Stallings Jay W ED 76, M?1945 MRN#? [id number] REG ER,?Main ED??R01?? 182.88cm 101.605kg BMI: 30.4kg/m? Neuro Symptoms/Deficit Acc#? [id number] Resus Status Not Ordered Hx Avail Special Indicators No Data to Display Home Meds Not Confirmed Prescription Monitoring Program MEDICATIONS (INSTRUCTIONS) LAST TAKEN Active ??ascorbic acid (vitamin C) ??1,000 mgPOQDAY##0 ??atorvastatin ??20 mgPODAILY ??doxycycline hyclate 100 mg capsule ??100 mgPOBID#14 caps ??Glucosamine Hydrochloride (#GLUCOSAMINE) ??500 mgPOQ DAY##0 levetiracetam [Keppra] 500 mgPOBID#14 tabs ??loratadine [Claritin] ??10 mgPODAILY ??losartan 100 mg-hydrochlorothiazide 12.5 mg tablet ??1 tabPODAILY#90 tabs ??methylsulfonylmethane ??mgPODAILY ??metoprolol succinate ??50 mgPODAILY ??multivitamin with minerals ??1 tabPODAILY ??paroxetine HCl ??20 mgPODAILY ??tamsulosin 0.4 mg capsule ??0.4 mgPOBEDTIME#60 caps ??Vitamin D (with calcium) ??1 tabPODAILY ??zinc ??1 tabPODAILY DME/Medical Supplies ??[employer] Dreamstation CPAP ?Not Included in Conflicts Allergies ibuprofen (IBUPROFEN) HIVES Problems ? ONSET Simple partial seizures Bilateral subdural hematomas Difficulty walking Hepatic cyst Vertigo Syncope and collapse Ascending aorta enlargement Knee pain Decreased hearing Obstructive sleep apnea of adult Chronic congestion of paranasal sinus Hematoma of right lower extremity Hypertension 03/18/13 Shoulder pain 03/18/13 Depression 10/12/14 Mixed hyperlipidemia 05/02/17 Elevated prostate specific antigen (PSA) 05/02/17 Vital Signs Today 03:00 BP 160/75?H Pulse 72? Resp 18? O2 Sat 97? Diagnostics Reports Indra Purdy??76??M??1945 ? Allergy/Adv: ibuprofen Close Head CT (Signed) Wilmer Shields - 11/03/[address] (Signed) Galvan,Shola - 10/25/21 Thoracic Spine X-Ray (Signed) Camacho,Muneer - 10/25/21 Lumbar Spine X-Ray (Signed) Camacho,Muneer - 10/25/21 Brain MRI (Signed) Dipti Gonzalez - 10/25/21 Hip X-Ray (Signed) GageMaxine aguirre - 10/19/21 Abdomen MRI (Signed) Paras Blackwell - 09/30/21 Carotid Doppler Study (Signed) JuanMaxine - 09/17/21 Telemetry Strips 09/17/21 Abdomen/Pelvis CT (Signed) Galvan,Shola - 09/17/21 Chest CTA (Signed) Galvan,Shola - 09/17/[address] (Signed) Galvan,Shola - 09/17/21 Chest X-Ray (Signed) Galvan,Shola - 09/17/[address] (Signed) Galvan,Shola - 09/17/21 Radiology Report (Cancelled) Nuris Mart - 09/12/21 Myocardial Perfusion Scan Nuc Med (Signed) Paliwal,Vidhu - 09/12/21 Echocardiogram Ultrasound (Signed) Margarito Bey - 12/27/20 EKG Rpt. 12/23/20 Knee MRI (Signed) Ike Lazar - 07/09/[address] (Signed) Nicki Rudolph - 04/20/19 Chest X-Ray (Signed) Yessenia Pacheco - 04/20/19 EKG Rpt. 04/20/19 Vascular Ultrasound (Signed) Iker Valero - 11/04/18 Knee X-Ray (Signed) Ko Howell - 10/20/[address] (Signed) Ino Stallings - 03/21/18 Launch?[address] [address] [address] Scan Report Signed Patient: Indra Purdy MR#: [id number] : 1945 Acct:[id number] Age/Sex: 76 / M Date of Service: 11/03/21 Loc: ED Accession Number: [id number] ?? Procedure: CT head/brain wo con Ordering Provider: Brandin Rodriguez D.O. PROCEDURE:? CT HEAD/BRAIN WO CON ? INDICATIONS:? focal neuro symptoms, recent bleed, neuro surgery ? TECHNIQUE:? Noncontrast 4.5 mm thick angled axial sections acquired from the foramen magnum to the vertex, with coronal and sagittal reformats.? For radiation dose reduction, the following was used:? automated exposure control, adjustment of mA and/or kV according to patient size.? ? COMPARISON:? [facility], CT, CT HEAD/BRAIN WO CON, 10/25/2021, 10:33. ? FINDINGS:? Image quality:? Excellent.? ? CSF spaces:? There are persistent bilateral subdural fluid collections which appear slightly greater in density than CSF.? Associated foci of pneumocephalus are demonstrated bilaterally.? These measure up to approximately 1.1 cm on the left and 0.8 cm on the right on coronal images.? Basal cisterns are patent.? There is mild cerebral volume loss, with resultant ventricular and sulcal prominence.? ? Brain:? No intracranial mass or midline shift.? No intra-axial hematoma collections.? There are subcortical, periventricular and deep white matter hypodensities consistent with mild chronic small vessel ischemic changes.? The kothari-white matter junction appears preserved.? ? Skull and face:? Calvarium and visualized facial bones demonstrate no acute fractures.? There are bilateral frontal and parietal nohemy holes which are new compared to the prior comparison CT. ? Sinuses:? Visualized sinuses demonstrate mild mucosal thickening within the right maxillary sinus and bilateral ethmoid sinuses.? Mastoid air cells are clear. ? IMPRESSION:? ? 1. Bilateral subdural collections redemonstrated with slight increased density relative to CSF.? Report from prior outside CT performed following surgical evacuation of the subdural hematomas described residual subdural collections.? The findings again likely represent residual subdural collections without definite evidence of an acute hemorrhage. ? ? 2. There is mild associated mass effect on the frontal and parietal lobes without midline shift. ? 3. Small amount of pneumocephalus bilaterally consistent with sequelae of prior surgery. ? Findings discussed with Dr. Rodriguez on 11/03/2021 at 11:16 p.m..? ? ? Dictated by: Wilmer Shields M.D. on 11/03/2021 at 23:14 ? ? Approved by: Wilmer Shields M.D. on 11/03/2021 at 23:28 ? ? Chart Viewer Diagnostics Subcategory All Activity ??:?? All Time ??:?? All Subcategories Filter Laboratory Imaging Microbiology Pathology Blood Bank Tests Cardiovascular Other Specialty DATE TYPE STATUS REF RANGE/AUTHOR Hx 11/03/21 22:[address] Signed Wilmer Shields 10/25/21 10:[address] Signed Galvan,Shola 10/25/21 09:19 Thoracic Spine X-Ray Signed Luis M Camacho 10/25/21 09:19 Lumbar Spine [facility] 10/25/21 06:32 Brain MRI Signed Dipti Gonzalez 10/19/21 13:18 Hip X-Ray Signed Maxine Martinez 09/30/21 10:12 Abdomen MRI Signed Paras Blackwell 09/17/21 19:09 Carotid Doppler Study Signed Maxine Martinez 09/17/21 16:04 Telemetry Strips ? 09/17/21 13:40 Abdomen/Pelvis CT Signed Galvan,Shola 09/17/21 13:34 Chest CTA Signed Galvan,Shola 09/17/21 12:[address] Signed Galvan,Shola 09/17/21 12:42 Chest X-Ray Signed Galvan,Shola 09/17/21 12:[address] Signed Gavlan,Shola 09/12/21 20:55 Radiology Report Cancelled Nuris Mart 09/12/21 20:55 Myocardial Perfusion Scan Nuc Med Signed Paliwal,Vidhu 12/27/20 08:07 Echocardiogram Ultrasound Signed Margarito Bey 12/23/20 14:30 EKG Rpt. LOVE 07/09/19 00:00 Knee MRI Signed Ike Lazar 04/20/19 21:[address] Signed Nicki Rudolph 04/20/19 21:43 Chest X-Ray Signed Yessenia Pacheco 04/20/19 09:07 EKG Rpt. With notes 11/04/18 00:00 Vascular Ultrasound Signed Iker Valero 10/20/18 08:14 Knee X-Ray Signed Ko Howell 03/21/18 00:[address] Signed Ino Stallings Jay W ED 76, M?1945 MRN#? [id number] REG ER,?Main ED??R01?? 182.88cm 101.605kg BMI: 30.4kg/m? Neuro Symptoms/Deficit Acc#? [id number] Resus Status Not Ordered Hx Avail Special Indicators No Data to Display Home Meds Not Confirmed Prescription Monitoring Program MEDICATIONS (INSTRUCTIONS) LAST TAKEN Active ??ascorbic acid (vitamin C) ??1,000 mgPOQDAY##0 ??atorvastatin ??20 mgPODAILY ??doxycycline hyclate 100 mg capsule ??100 mgPOBID#14 caps ??Glucosamine Hydrochloride (#GLUCOSAMINE) ??500 mgPOQ DAY##0 levetiracetam [Keppra] 500 mgPOBID#14 tabs ??loratadine [Claritin] ??10 mgPODAILY ??losartan 100 mg-hydrochlorothiazide 12.5 mg tablet ??1 tabPODAILY#90 tabs ??methylsulfonylmethane ??mgPODAILY ??metoprolol succinate ??50 mgPODAILY ??multivitamin with minerals ??1 tabPODAILY ??paroxetine HCl ??20 mgPODAILY ??tamsulosin 0.4 mg capsule ??0.4 mgPOBEDTIME#60 caps ??Vitamin D (with calcium) ??1 tabPODAILY ??zinc ??1 tabPODAILY DME/Medical Supplies ??[employer] Dreamstation CPAP ?Not Included in Conflicts Allergies ibuprofen (IBUPROFEN) HIVES Problems ? ONSET Simple partial seizures Bilateral subdural hematomas Difficulty walking Hepatic cyst Vertigo Syncope and collapse Ascending aorta enlargement Knee pain Decreased hearing Obstructive sleep apnea of adult Chronic congestion of paranasal sinus Hematoma of right lower extremity Hypertension 03/18/13 Shoulder pain 03/18/13 Depression 10/12/14 Mixed hyperlipidemia 05/02/17 Elevated prostate specific antigen (PSA) 05/02/17 Vital Signs Today 03:00 BP 160/75?H Pulse 72? Resp 18? O2 Sat 97? Diagnostics Reports Indra Purdy??76??M??1945 ? Allergy/Adv: ibuprofen Close Head CT (Signed) ShieldsWilmer escobar - 11/03/[address] (Signed) Galvan,Shola - 10/25/21 Thoracic Spine X-Ray (Signed) Camacho,Kirillr - 10/25/21 Lumbar Spine X-Ray (Signed) Camacho,Muneer - 10/25/21 Brain MRI (Signed) Dipti Gonzalez - 10/25/21 Hip X-Ray (Signed) KiMaxine aguirre - 10/19/21 Abdomen MRI (Signed) Paras Blackwell - 09/30/21 Carotid Doppler Study (Signed) KiseanatMaxine - 09/17/21 Telemetry Strips 09/17/21 Abdomen/Pelvis CT (Signed) Galvan,Shola - 09/17/21 Chest CTA (Signed) Galvan,Shola - 09/17/[address] (Signed) Galvan,Shola - 09/17/21 Chest X-Ray (Signed) Galvan,Shola - 09/17/[address] (Signed) Galvan,Shola - 09/17/21 Radiology Report (Cancelled) Nuris Mart - 09/12/21 Myocardial Perfusion Scan Nuc Med (Signed) Mathew Martu - 09/12/21 Echocardiogram Ultrasound (Signed) Margraito Bey - 12/27/20 EKG Rpt. 12/23/20 Knee MRI (Signed) Ike Lazar - 07/09/[address] (Signed) Nicki Rudolph - 04/20/19 Chest X-Ray (Signed) Yessenia Pacheco - 04/20/19 EKG Rpt. 04/20/19 Vascular Ultrasound (Signed) Iker Valeor - 11/04/18 Knee X-Ray (Signed) Ko Howell - 10/20/[address] (Signed) Ino Stallings - 03/21/18 Launch?[address] [address] [address] Scan Report Signed Patient: Indra Purdy MR#: [id number] : 1945 Acct:[id number] Age/Sex: 76 / M Date of Service: 11/03/21 Loc: ED Accession Number: [id number] ?? Procedure: CT head/brain wo con Ordering Provider: Brandin Rodriguez D.O. PROCEDURE:? CT HEAD/BRAIN WO CON ? INDICATIONS:? focal neuro symptoms, recent bleed, neuro surgery ? TECHNIQUE:? Noncontrast 4.5 mm thick angled axial sections acquired from the foramen magnum to the vertex, with coronal and sagittal reformats.? For radiation dose reduction, the following was used:? automated exposure control, adjustment of mA and/or kV according to patient size.? ? COMPARISON:? [facility], CT, CT HEAD/BRAIN WO CON, 10/25/2021, 10:33. ? FINDINGS:? Image quality:? Excellent.? ? CSF spaces:? There are persistent bilateral subdural fluid collections which appear slightly greater in density than CSF.? Associated foci of pneumocephalus are demonstrated bilaterally.? These measure up to approximately 1.1 cm on the left and 0.8 cm on the right on coronal images.? Basal cisterns are patent.? There is mild cerebral volume loss, with resultant ventricular and sulcal prominence.? ? Brain:? No intracranial mass or midline shift.? No intra-axial hematoma collections.? There are subcortical, periventricular and deep white matter hypodensities consistent with mild chronic small vessel ischemic changes.? The kothari-white matter junction appears preserved.? ? Skull and face:? Calvarium and visualized facial bones demonstrate no acute fractures.? There are bilateral frontal and parietal nohemy holes which are new compared to the prior comparison CT. ? Sinuses:? Visualized sinuses demonstrate mild mucosal thickening within the right maxillary sinus and bilateral ethmoid sinuses.? Mastoid air cells are clear. ? IMPRESSION:? ? 1. Bilateral subdural collections redemonstrated with slight increased density relative to CSF.? Report from prior outside CT performed following surgical evacuation of the subdural hematomas described residual subdural collections.? The findings again likely represent residual subdural collections without definite evidence of an acute hemorrhage. ? ? 2. There is mild associated mass effect on the frontal and parietal lobes without midline shift. ? 3. Small amount of pneumocephalus bilaterally consistent with sequelae of prior surgery. ? Findings discussed with Dr. Rodriguez on 11/03/2021 at 11:16 p.m..? ? ? Dictated by: Wilmer Shields M.D. on 11/03/2021 at 23:14 ? ? Approved by: Wilmer Shields M.D. on 11/03/2021 at 23:28 ? Discharge Plan Departure Patient Disposition: Home Clinical Impression: Simple partial seizures Instructions: DI for Seizure (Not Epilepsy/Seizure Disorder) Activity Restrictions/Additional Instructions: *You have been diagnosed with [simple focal seizure, most likely a consequence of your recent subdural hematomas and subsequent neurosurgical intervention] *What to do: *Please continue to take your regular medications as directed. [ x] New medication prescriptions sent to your pharmacy: [[facility] ] [ ] New medication written as a paper prescription [ ] No new medications given * as we discussed, I have spoken with neuro surgery at [facility] this evening and after our discussion they recommend the seizure medication that I sent to your pharmacy to be taken twice daily for 7 days only. They did not have any significant additions to your existing follow-up schedule *Return to Emergency Department if you should have any new, worsening or concerning symptoms Prescriptions: New levetiracetam [Keppra] 500 mg tablet 500 mg PO BID Qty: 14 0RF No Action Glucosamine Hydrochloride (#GLUCOSAMINE) 500 mg PO Q DAY Qty: 0 ascorbic acid (vitamin C) 500 MG tablet 1,000 mg PO QDAY Qty: 0 tamsulosin 0.4 mg capsule 0.4 mg PO BEDTIME Qty: 60 0RF losartan-hydrochlorothiazide 100-12.5 mg tablet 1 tab PO DAILY Qty: 90 3RF doxycycline hyclate 100 mg capsule 100 mg PO BID Qty: 14 0RF atorvastatin 40 mg tablet 20 mg PO DAILY metoprolol succinate 50 mg tablet extended release 24 hr 50 mg PO DAILY paroxetine HCl 20 mg tablet 20 mg PO DAILY loratadine [Claritin] 10 mg Tablet 10 mg PO DAILY methylsulfonylmethane 500 mg Capsule PO DAILY Vitamin D (with calcium) 1 tab PO DAILY multivitamin with minerals 1 tab PO DAILY zinc 1 tab PO DAILY (DME) [employer] Dreamstation CPAP Qty: 1 Dose Instruction: As directed Label Comments: Pressure: 8-16 cmH2O DME: [facility] Rx Instructions: As directed Referrals: Donato Hidalgo MD [Primary Care Provider] -
--- NOTE | 2021-11-03 22:17 | DI.CT.S_ITS ---
PROCEDURE: CT HEAD/BRAIN WO CON INDICATIONS: focal neuro symptoms, recent bleed, neuro surgery TECHNIQUE: Noncontrast 4.5 mm thick angled axial sections acquired from the foramen magnum to the vertex, with coronal and sagittal reformats. For radiation dose reduction, the following was used: automated exposure control, adjustment of mA and/or kV according to patient size. COMPARISON: [facility], CT, CT HEAD/BRAIN WO CON, 10/25/2021, 10:33. FINDINGS: Image quality: Excellent. CSF spaces: There are persistent bilateral subdural fluid collections which appear slightly greater in density than CSF. Associated foci of pneumocephalus are demonstrated bilaterally. These measure up to approximately 1.1 cm on the left and 0.8 cm on the right on coronal images. Basal cisterns are patent. There is mild cerebral volume loss, with resultant ventricular and sulcal prominence. Brain: No intracranial mass or midline shift. No intra-axial hematoma collections. There are subcortical, periventricular and deep white matter hypodensities consistent with mild chronic small vessel ischemic changes. The kothari-white matter junction appears preserved. Skull and face: Calvarium and visualized facial bones demonstrate no acute fractures. There are bilateral frontal and parietal nohemy holes which are new compared to the prior comparison CT. Sinuses: Visualized sinuses demonstrate mild mucosal thickening within the right maxillary sinus and bilateral ethmoid sinuses. Mastoid air cells are clear. IMPRESSION: 1. Bilateral subdural collections redemonstrated with slight increased density relative to CSF. Report from prior outside CT performed following surgical evacuation of the subdural hematomas described residual subdural collections. The findings again likely represent residual subdural collections without definite evidence of an acute hemorrhage. 2. There is mild associated mass effect on the frontal and parietal lobes without midline shift. 3. Small amount of pneumocephalus bilaterally consistent with sequelae of prior surgery. Findings discussed with Dr. Rodriguez on 11/03/2021 at 11:16 p.m.. Dictated by: Wilmer Shields M.D. on 11/03/2021 at 23:14 Approved by: Wilmer Shields M.D. on 11/03/2021 at 23:28
[2021-11-03 22:28] LABS: INR 1.1 (0.9-1.3); Prothrombin Time 12.8 SECONDS (10.1-12.7)
[2021-11-03 22:29] LABS: Add Manual Diff / Slide Review NO; Basophils Absolute Auto 100 /uL (0-100); Basophils Percent Auto 1.2 % (0-2); Eosinophils Absolute Auto 300 /uL (0-450); Eosinophils Percent Auto 3.8 % (2-4); Hematocrit 34.4 % (41-53); Hemoglobin 11.6 g/dL (13.5-17.5); Lymphocytes Absolute Auto 2200 /uL (1100-4500); Lymphocytes Percent Auto 30.9 % (25-40); Mean Corpuscular HGB Conc 33.9 % (30-36); Mean Corpuscular Hemoglobin 29.2 PG (26-34); Mean Corpuscular Volume 86.1 fL (80-100); Monocytes Absolute Auto 700 /uL (0-900); Monocytes Percent Auto 10.2 % (3-14); Neutrophils Absolute Auto 3800 /uL (1500-7000); Neutrophils Percent Auto 53.9 % (50-75); Platelet Count 318 X10^3/uL (150-400); Red Blood Cell Count 3.99 X10^6/uL (4.5-5.9); Red Cell Distribution Width 13.7 % (11.6-14.8)
[2021-11-03 22:33] LABS: Alanine Aminotransferase 21 IU/L (<50); Albumin 3.9 g/dL (3.5-5.0); Albumin Globulin Ratio 1.1 (1.0-2.8); Alkaline Phosphatase 52 U/L (38-126); Aspartate Aminotransferase 26 IU/L (17-59); BUN Creatinine Ratio 27.5 (6-22); Bilirubin Total 0.2 mg/dL (0.2-1.3); Blood Urea Nitrogen 22 mg/dL (9-20); Calcium 8.9 mg/dL (8.4-10.2); Carbon Dioxide 24 mmol/L (22-32); Chloride 103 mmol/L (98-107); Creatine Kinase 57 U/L (55-170); Estimated Glomerular Filt Rate > 60 mL/min (>60); Globulin 3.5 g/dL (1.7-4.1); Glucose 121 mg/dL (80-110); HEMOLYSIS < 15 (0-50); Potassium 4.1 mmol/L (3.4-5.1); Sodium 138 mmol/L (137-145); Total Protein 7.4 g/dL (6.3-8.2)
[2021-11-03 22:39] VITALS: BP 160/76; PULSE 71; RESP 18; TEMP 36.7; O2SAT 97; BMI 30.4
[2021-11-03 22:44] LABS: Troponin I < 0.012 ng/mL (0.01-0.034)
[2021-11-03 22:50] VITALS: PULSE 73; RESP 21; O2SAT 99
[2021-11-03 22:51] VITALS: BP 165/76; PULSE 74; RESP 20; O2SAT 98
[2021-11-03 23:00] VITALS: BP 169/76; PULSE 72; RESP 24; O2SAT 98
[2021-11-03 23:09] LABS: COVID19 -Nasal RAPID Negative (Negative)
[2021-11-03 23:30] VITALS: BP 183/83; PULSE 74; RESP 15; O2SAT 98
[2021-11-04] VITALS (8 sets, daily range): BP systolic 149–188; BP diastolic 71–83; PULSE 69–78; RESP 18–31; O2SAT 94–97
[2021-11-04] MEDS: levETIRAcetam 500 MG in SODIUM CHLORIDE 0.9% 100 ML 420 MG IV (03:13)
== END 2021-11-04 03:54 | disposition home or self-care (01) ==
PROVIDERS: Emergency Provider Emergency Medicine; Family Provider Family Medicine; PCP Family Medicine
DX: G40.109 Localization-related (focal) (partial) symptomatic epilepsy and epileptic syndromes with simple partial seizures, not intractable, without status epilepticus (principal); Z86.79 Personal history of other diseases of the circulatory system; Z20.822 Contact with and (suspected) exposure to COVID-19
CPT/HCPCS: 70450; 80053; 81003; 82550; 84484; 85025; 85610; 87635; 96365; 99283; 99284; C9803; J1953

== ENCOUNTER → 2021-11-27 11:45 | Outpatient (CLI) | payer MEDICARE, SELFPAY ==
[2021-09-21 14:58] VITALS: BMI 25.6
--- NOTE | 2021-11-27 11:46 | DI.CT.S_ITS ---
PROCEDURE: CT HEAD/BRAIN WO CON INDICATIONS: subdural hematoma TECHNIQUE: Noncontrast 4.5 mm thick angled axial sections acquired from the foramen magnum to the vertex, with coronal and sagittal reformats. For radiation dose reduction, the following was used: automated exposure control, adjustment of mA and/or kV according to patient size. COMPARISON: [facility], CT, CT HEAD/BRAIN WO CON, 10/25/2021, 10:33. [facility], MR, MR STROKE, 10/25/2021, 7:21. [facility], CT, CT HEAD/BRAIN WO CON, 09/17/2021, 12:54. [facility], CT, CT HEAD/BRAIN WO CON, 11/03/2021, 22:26. FINDINGS: Image quality: Excellent. CSF spaces: Basal cisterns are patent. No extra-axial fluid collections. The ventricles are symmetric in size and shape. Brain: No intracranial bleeds or masses. There is cerebral volume loss for age, with resultant ventricular and sulcal prominence. There are periventricular and deep white matter chronic small vessel ischemic changes. There is intracranial internal carotid artery atherosclerosis. Skull and face: Calvarium demonstrates bifrontal nohemy holes. There is a very minimal appearance of residual hypodense subdural fluid within the right frontal lobe. There is no evidence of superimposed acute hemorrhage. Sinuses: Visualized sinuses and mastoids are clear. IMPRESSION: Continued interval resolution of previous subdural hematoma without definitive visualized superimposed acute hemorrhage. Dictated by: Dipti Gonzalez M.D. on 11/27/2021 at 12:56 Approved by: Dipti Gonzalez M.D. on 11/27/2021 at 13:00
== END ==
PROVIDERS: Family Provider Family Medicine; PCP Family Medicine; Referring Provider Family Medicine; Visit Provider Family Medicine
DX: R55 Syncope and collapse (principal); S06.5X9A Traumatic subdural hemorrhage with loss of consciousness of unspecified duration, initial encounter
CPT/HCPCS: 70450

== ENCOUNTER → 2022-01-04 09:17 | Outpatient (CLI) | payer MEDICARE, SELFPAY ==
[2021-09-21 14:58] VITALS: BMI 25.6
--- NOTE | 2022-01-04 09:27 | DI.ECHO.S_ITS ---
The ejection fraction is estimated to be 60-65%. Diastolic parameters suggest probable normal left ventricular diastolic function and normal filling pressures. The right ventricle is normal in size and function. There is mild to moderate aortic regurgitation. There is trace tricuspid regurgitation. The right ventricular systolic pressure is estimated to be at least 30 mmHg based on an estimated right atrial pressure of 3 mm Hg. The ascending aorta is mildly enlarged. Compared to the prior study dated 12/27/2020, no significant change. Procedure: A two-dimensional transthoracic echocardiogram with color flow and Doppler was performed. The study quality was technically adequate. Comparison is made with the echocardiogram of 12/27/2020. The patient was in normal sinus rhythm during the exam. Left Ventricle: The left ventricle is normal in size and wall thickness. Left ventricular systolic function is normal. The ejection fraction is estimated to be 60-65%. There are no focal wall motion abnormalities. Diastolic parameters suggest probable normal left ventricular diastolic function and normal filling pressures. Right Ventricle: The right ventricle is normal in size and function. Atria: Both atria are normal in size. The interatrial septum grossly appears intact with no obvious evidence for an atrial septal defect. Mitral Valve: The mitral valve is normal. There is trace mitral regurgitation. Aortic Valve: The aortic valve is trileaflet. The aortic valve is slightly calcified. There is no aortic valve stenosis. There is mild to moderate aortic regurgitation. Tricuspid Valve: The tricuspid valve is normal in structure and function. There is trace tricuspid regurgitation. The right ventricular systolic pressure is estimated to be at least 30 mmHg based on an estimated right atrial pressure of 3 mm Hg. Pulmonic Valve: The pulmonic valve is normal in structure and function. There is mild pulmonic regurgitation. Great Vessels: The aortic root is normal size. The ascending aorta is mildly enlarged. The IVC is of normal diameter and collapses greater than 50% with a sniff. This suggests a low right atrial pressure of 3 mm Hg. Pericardium/ Pleura There is no pericardial effusion. There is no pleural effusion. MMode/2D Measurements & Calculations LVIDd: 5.3 cm LVOT diam: 2.3 cm LVIDs: 3.7 cm Ao root diam: 3.3 cm FS: 30.2 % asc Aorta Diam: 3.8 cm IVSd: 1.0 cm LVPWd: 1.0 cm LV thayer. diameter/BSA (cm/m^2): 2.4 LV sys. diameter/BSA (cm/m^2): 1.7 LA dimension: 3.4 cm RA long axis: 6.0 cm LA A2 area: 18.9 cm2 RA area: 19.6 cm2 LA A4 area: 20.8 cm2 RA vol: 54.0 ml LA length (vol): 6.2 cm RA : 24.7 ml/m2 LA vol: 53.5 ml LA vol index: 24.5 ml/m2 TAPSE_phl: 2.4 cm Doppler Measurements & Calculations Ao V2 max: 155.0 cm/sec LVOT Max Asad: 159.0 cm/sec Ao V2 mean: 108.0 cm/sec LV V1 max P.1 mmHg Ao max P.0 mmHg LV V1 VTI: 36.1 cm Ao mean P.0 mmHg ALONSO(I,D): 4.6 cm2 Ao V2 VTI: 32.9 cm ALONSO(V,D): 4.3 cm2 sev ratio: 1.1 ALONSO indexed to BSA (cm^2/m^2): 2.1 AI P1/2t: 590.0 msec AI dec slope: 208.0 cm/sec2 MV E max asad: 79.5 cm/sec TR max asad: 261.0 cm/sec MV A max asad: 83.9 cm/sec TR max P.2 mmHg MV E/A: 0.95 Med Peak E' Asad: 8.3 cm/sec E/E' med: 9.6 Lat Peak E' Asad: 11.1 cm/sec E/E' lat: 7.2 E/e' average: 8.4 MV dec time: 0.25 sec SV(LVOT): 150.0 ml AV P1/2t-pr_phl: 591.0 msec AV VR_phl: 1.0 ALONSO(VTI)/BSA_phl: 2.1 MV P1/2t-pr_phl: 72.0 msec Reading Physician:12:20 PM
== END ==
PROVIDERS: Family Provider Family Medicine; PCP Family Medicine; Referring Provider Internal Medicine Cardiovascular Disease; Visit Provider Internal Medicine Cardiovascular Disease
DX: I35.1 Nonrheumatic aortic (valve) insufficiency (principal); I37.1 Nonrheumatic pulmonary valve insufficiency; I77.89 Other specified disorders of arteries and arterioles; R55 Syncope and collapse
CPT/HCPCS: 93306

== ENCOUNTER 2022-04-11 19:08 | Emergency (ER) | payer MEDICARE, SELFPAY ==
[2021-09-21 14:58] VITALS: BMI 25.6
--- NOTE | 2022-04-11 19:11 | DI.CT.S_ITS ---
PROCEDURE: CT HEAD/BRAIN WO CON INDICATIONS: syncope prior subdurals TECHNIQUE: Noncontrast 4.5 mm thick angled axial sections acquired from the foramen magnum to the vertex, with coronal and sagittal reformats. For radiation dose reduction, the following was used: automated exposure control, adjustment of mA and/or kV according to patient size. COMPARISON: [facility], CR, XR CHEST 1V, 04/11/2022, 19:12. [facility], CT, CT HEAD/BRAIN WO CON, 11/27/2021, 11:54. FINDINGS: Image quality: Excellent. CSF spaces: Basal cisterns are patent. No extra-axial fluid collections. The ventricles are symmetric in size and shape. Brain: No intracranial bleeds or masses. There is cerebral volume loss for age, with resultant ventricular and sulcal prominence. There are periventricular and deep white matter chronic small vessel ischemic changes. There is intracranial internal carotid artery atherosclerosis. Skull and face: Bilateral calvarial nohemy holes are again seen. Calvarium and visualized facial bones appear intact, without suspicious lesions. Sinuses: Fozn-pm-rxtozpqs mucosal thickening can be seen within the ethmoid air cells. The paranasal sinuses are otherwise unremarkable. No abnormal fluid is seen within the mastoid air cells. IMPRESSION: No acute intracranial hemorrhage is seen. Additional findings: Ethmoid air cell disease Bilateral nohemy holes Dictated by: Ino Stallings M.D. on 04/11/2022 at 18:43 Approved by: Ino Stallings M.D. on 04/11/2022 at 18:45
[2022-04-11 19:12] VITALS: BP 143/70; PULSE 66; RESP 18; TEMP 36.4; O2SAT 97; BMI 29.5
--- NOTE | 2022-04-11 19:12 | DI.RAD.S_ITS ---
PROCEDURE: XR CHEST 1V INDICATIONS: chest pain/syncope TECHNIQUE: One view of the chest was acquired. COMPARISON: [facility], CT, CT HEAD/BRAIN WO CON, 04/11/2022, 19:23. [facility], CR, XR CHEST 1V, 09/17/2021, 12:36. FINDINGS: Surgical changes and devices: None. Lungs and pleura: An incomplete inspiratory result is noted, causing a crowded appearance to the lung markings. No focal infiltrates are seen. No pneumothorax or significant pleural effusions are seen. Mediastinum: The cardiac contours are within normal limits. The aorta demonstrates calcification and tortuosity. Bones and chest wall: No suspicious bony lesions. Age-appropriate bony degenerative changes are seen. Overlying soft tissues appear unremarkable. IMPRESSION: Unremarkable portable chest for age. Dictated by: Ino Stallings M.D. on 04/11/2022 at 18:43 Approved by: Ino Stallings M.D. on 04/11/2022 at 18:43
[2022-04-11 19:25] LABS: Add Manual Diff / Slide Review NO; Basophils Absolute Auto 100 /uL (0-100); Basophils Percent Auto 1.1 % (0-2); Eosinophils Absolute Auto 400 /uL (0-450); Eosinophils Percent Auto 4.7 % (2-4); Hematocrit 39.6 % (41-53); Lymphocytes Absolute Auto 2600 /uL (1100-4500); Lymphocytes Percent Auto 33.3 % (25-40); Mean Corpuscular HGB Conc 32.9 % (30-36); Mean Corpuscular Hemoglobin 28.5 PG (26-34); Mean Corpuscular Volume 86.6 fL (80-100); Monocytes Absolute Auto 700 /uL (0-900); Monocytes Percent Auto 8.4 % (3-14); Neutrophils Absolute Auto 4100 /uL (1500-7000); Neutrophils Percent Auto 52.5 % (50-75); Platelet Count 243 X10^3/uL (150-400); Red Blood Cell Count 4.57 X10^6/uL (4.5-5.9); Red Cell Distribution Width 14.8 % (11.6-14.8); White Blood Cell Count 7.8 X10^3/uL (4.5-11.0)
[2022-04-11 19:47] LABS: PTT Partial Thromboplastin Tim 30 SECONDS (26-36)
[2022-04-11 19:50] LABS: Alanine Aminotransferase 39 IU/L (<50); Albumin 4.3 g/dL (3.5-5.0); Albumin Globulin Ratio 1.4 (1.0-2.8); Alkaline Phosphatase 48 U/L (38-126); BUN Creatinine Ratio 16.9 (6-22); Blood Urea Nitrogen 22 mg/dL (9-20); Calcium 9.1 mg/dL (8.4-10.2); Carbon Dioxide 26 mmol/L (22-32); Chloride 104 mmol/L (98-107); Creatine Kinase 83 U/L (55-170); Estimated Glomerular Filt Rate 56 mL/min (>60); Globulin 3.1 g/dL (1.7-4.1); Glucose 108 mg/dL (80-110); Lipase 172 U/L (23-300); Sodium 142 mmol/L (137-145); Total Protein 7.4 g/dL (6.3-8.2)
[2022-04-11 19:56] LABS: HEMOLYSIS 124 (0-50)
[2022-04-11 19:57] LABS: Aspartate Aminotransferase 58 IU/L (17-59); Bilirubin Total 0.6 mg/dL (0.2-1.3); Potassium 4.5 mmol/L (3.4-5.1)
[2022-04-11 20:01] LABS: Troponin I < 0.012 ng/mL (0.01-0.034)
[2022-04-11 21:09] VITALS: PULSE 76; RESP 16; O2SAT 94
[2022-04-11 21:10] VITALS: BP 143/73; PULSE 81; RESP 18; O2SAT 95
[2022-04-11 21:30] VITALS: BP 142/67; PULSE 78; RESP 17; O2SAT 94
--- NOTE | 2022-04-11 21:44 | ED_ITS ---
HPI - Syncope General Chief Complaint: Syncope Stated Complaint: weakness, syncope Time Seen by Provider: 04/11/22 19:10 Source: patient and EMS Mode of arrival: EMS Limitations: no limitations History of Present Illness HPI narrative: Patient is a 77-year-old male history of bilateral subdural hematomas, hypertens ion hyperlipidemia presenting today with a near syncopal episode. He reports that he felt like his blood pressure was dropping he reports that he can just tell sometimes. This has happened to him previously. He was sitting in a chair asked if he wanted salad when he did not respond she realized that he had passed out. He passed out for a couple of minutes. EMS reports hypotension upon arrival. He is now awake alert complaining of a little bit of dry mouth. No chest pain palpitations or fever. He was feeling his normal self today. He reports drinking his nightly scotch. He reports drinking the same amount of scotches he does every night in fact just a little bit less. No abdominal pain nausea or vomiting Related Data Home Medications Medication Instructions Recorded Confirmed Glucosamine Hydrochloride 500 mg PO Q DAY ##0 03/23/11 11/03/21 (#GLUCOSAMINE) ascorbic acid (vitamin C) 500 mg 1,000 mg PO QDAY ##0 07/31/12 11/03/21 tablet [employer] Dreamstation CPAP #1 ea 09/01/18 11/03/21 Vitamin D (with calcium) 1 tab PO DAILY 09/17/21 11/03/21 loratadine 10 mg tablet (Claritin) 10 mg PO DAILY 09/17/21 11/03/21 methylsulfonylmethane 500 mg mg PO DAILY 09/17/21 11/03/21 capsule multivitamin with minerals 1 tab PO DAILY 09/17/21 11/03/21 paroxetine HCl 20 mg tablet 20 mg PO DAILY 09/17/21 11/03/21 zinc 1 tab PO DAILY 09/17/21 11/03/21 losartan 100 1 tab PO DAILY 12/21/21 12/21/21 mg-hydrochlorothiazide 25 mg tablet metoprolol succinate 50 mg 25 mg PO DAILY 12/21/21 12/21/21 tablet,extended release 24 hr Previous Rx's Medication Instructions Recorded doxycycline hyclate 100 mg capsule 100 mg PO BID #14 caps 09/22/21 tamsulosin 0.4 mg capsule 0.4 mg PO BEDTIME #60 caps 10/20/21 atorvastatin 40 mg tablet 20 mg PO DAILY #90 tabs 11/13/21 Allergies Allergy/AdvReac Type Severity Reaction Status Date / Time ibuprofen [IBUPROFEN] Allergy Intermediate HIVES Verified 11/03/21 13:04 Review of Systems Review of Systems ROS Unobtainable: All systems reviewed & are unremarkable except as noted in HPI and below Patient History Medical History Ascending aorta enlargement Chronic congestion of paranasal sinus Difficulty walking Hay fever Hearing deficit Hepatic cyst History of colonic polyps (03/23/11) Obstructive sleep apnea of adult Sleep apnea Vision disorder Surgical History Anesthesia Status post hernia repair Status post rotator cuff repair Family History Mother Heart disease Social History marital status: details: to Stephanie household members: spouse lives independently: Yes caregiver/support person: No 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 Smoking Status: Never smoker alcohol intake: current substance use type: does not use Type(s) of exercise: bicycling and regular exercise frequency: 5-6 times per week Smoking Status: Never smoker alcohol intake frequency: a few times a week Alcohol type: hard liquor Substance Use Type: marijuana Exam Initial Vital Signs Initial Vital Signs: Vital Signs Temperature 97.6 F 04/11/22 19:12 Pulse Rate 66 04/11/22 19:12 Respiratory Rate 18 04/11/22 19:12 Blood Pressure 143/70 H 04/11/22 19:12 Pulse Oximetry 97 04/11/22 19:12 Oxygen Delivery Method 04/11/22 19:12 GENERAL: Alert pleasant well-appearing 77-year-old male HEENT: Head atraumatic,EOMI, pupils reactive, face symmetric, moist mucous membranes CARDIOVASCULAR: Regular rate and rhythm without murmurs, rubs or gallops. RESPIRATORY: Breath sounds equal bilaterally, no wheezes rales or rhonchi. ABDOMEN: Soft, nontender. Normoactive bowel sounds all 4 quadrants. No guardin g or rebound. EXTREMITIES: Normal range of motion, no clubbing or edema. Neurovascularly intact NEUROLOGICAL: Alert and oriented x4.Normal gait and speech. Cranial nerves II through XII grossly intact. 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 Course Orders Ordered: ED Orders 04/11/22 20:28 EKG-12 Lead Stat Vital Signs Vital signs: Vital Signs - 8 hr 04/11/22 21:09 04/11/22 21:10 04/11/22 21:10 Pulse Rate 76 81 Respiratory Rate 16 18 Blood Pressure 143/73 H Pulse Oximetry 94 95 04/11/22 21:30 04/11/22 21:30 04/11/22 22:00 Pulse Rate 78 Respiratory Rate 17 Blood Pressure 142/67 H 155/77 H Pulse Oximetry 94 04/11/22 22:00 Pulse Rate 76 Respiratory Rate 24 Blood Pressure Pulse Oximetry 96 MDM - Syncope Lab Data 04/11/22 19:00 04/11/22 19:00 Labs: Lab Results 04/11/22 04/11/22 04/11/22 Range/Units 19:00 19:00 19:00 WBC 7.8 (4.5-11.0) X10^3/uL RBC 4.57 (4.5-5.9) X10^6/uL Hgb 13.0 L (13.5-17.5) g/dL Hct 39.6 L (41-53) % MCV 86.6 (80-100) fL MCH 28.5 (26-34) PG MCHC 32.9 (30-36) % RDW 14.8 (11.6-14.8) % Plt Count 243 (150-400) X10^3/uL Neut % (Auto) 52.5 (50-75) % Lymph % (Auto) 33.3 (25-40) % Hardin % (Auto) 8.4 (3-14) % Eos % (Auto) 4.7 H (2-4) % Baso % (Auto) 1.1 (0-2) % Neut # (Auto) 4100 (4987-0770) /uL Lymph # (Auto) 2600 (0255-2769) /uL Hardin # (Auto) 700 (0-900) /uL Eos # (Auto) 400 (0-450) /uL Baso # (Auto) 100 (0-100) /uL PT 12.0 (10.1-12.7) SECONDS INR 1.0 (0.9-1.3) APTT 30 (26-36) SECONDS Sodium 142 (137-145) mmol/L Potassium 4.5 (3.4-5.1) mmol/L Chloride 104 (98-107) mmol/L Carbon Dioxide 26 (22-32) mmol/L BUN 22 H (9-20) mg/dL Creatinine 1.30 H (0.66-1.25) mg/dL Estimated GFR 56 L (>60) mL/min BUN/Creatinine Ratio 16.9 (6-22) Glucose 108 (80-110) mg/dL Calcium 9.1 (8.4-10.2) mg/dL Total Bilirubin 0.6 (0.2-1.3) mg/dL AST 58 (17-59) IU/L ALT 39 (<50) IU/L Alkaline Phosphatase 48 (38-126) U/L Total Creatine Kinase 83 (55-170) U/L CK-MB (CK-2) TNP CK-MB (CK-2) Rel Index TNP Troponin I < 0.012 (0.01-0.034) ng/mL Total Protein 7.4 (6.3-8.2) g/dL Albumin 4.3 (3.5-5.0) g/dL Globulin 3.1 (1.7-4.1) g/dL Albumin/Globulin Ratio 1.4 (1.0-2.8) Lipase 172 (23-300) U/L Imaging Data CT scan - head: Radiologist's Impression: Signed Patient: Indra Purdy MR#: [id number] : 1945 Acct:[id number] Age/Sex: 77 / M Date of Service: 04/11/22 Loc: ED Accession Number: [id number] ?? Procedure: CT head/brain wo con Ordering Provider: Kadie Nguyen D.O. PROCEDURE:? CT HEAD/BRAIN WO CON ? INDICATIONS:? syncope prior subdurals ? TECHNIQUE:? Noncontrast 4.5 mm thick angled axial sections acquired from the foramen magnum to the vertex, with coronal and sagittal reformats.? For radiation dose reduction, the following was used:? automated exposure control, adjustment of mA and/or kV according to patient size.? ? COMPARISON:? [facility], CR, XR CHEST 1V, 04/11/2022, 19:12.? [facility], CT, CT HEAD/BRAIN WO CON, 11/27/2021, 11:54. ? FINDINGS:? Image quality:? Excellent.? ? CSF spaces:? Basal cisterns are patent.? No extra-axial fluid collections.? The ventricles are symmetric in size and shape.? ? Brain:? No intracranial bleeds or masses.? There is cerebral volume loss for age, with resultant ventricular and sulcal prominence.? There are periventricular and deep white matter chronic small vessel ischemic changes.? There is intracranial internal carotid artery atherosclerosis.? ? Skull and face:? Bilateral calvarial nohemy holes are again seen.? Calvarium and visualized facial bones appear intact, without suspicious lesions.? ? Sinuses:? Utwh-nl-[id number] mucosal thickening can be seen within the ethmoid air cells.? The paranasal sinuses are otherwise unremarkable. No abnormal fluid is seen within the mastoid air cells. ? ? IMPRESSION:? No acute intracranial hemorrhage is seen.? ? ? Additional findings:? Ethmoid air cell disease Bilateral nohemy holes ? ? Dictated by: Ino Stallings M.D. on 04/11/2022 at 18:43 ? ? Chest x-ray: Radiologist's Impression: Indra Purdy MR#: [id number] : 1945 Acct:[id number] Age/Sex: 77 / M Date of Service: 04/11/22 Loc: ED Accession Number: [id number] ?? Procedure: XR chest 1V Ordering Provider: Kadie Nguyen D.O. PROCEDURE:? XR CHEST 1V ? INDICATIONS:? chest pain/syncope ? TECHNIQUE:? One view of the chest was acquired.? ? COMPARISON:? [facility], CT, CT HEAD/BRAIN WO CON, 04/11/2022, 19:23.? [facility], CR, XR CHEST 1V, 09/17/2021, 12:36. ? FINDINGS:? ? Surgical changes and devices:? None.? ? Lungs and pleura:? An incomplete inspiratory result is noted, causing a crowded appearance to the lung markings.? No focal infiltrates are seen.? No pneumothorax or significant pleural effusions are seen. ? ? Mediastinum:? The cardiac contours are within normal limits. The aorta demonstrates calcification and tortuosity. ? Bones and chest wall:? No suspicious bony lesions.? Age-appropriate bony degenerative changes are seen. ? Overlying soft tissues appear unremarkable.? ? ? IMPRESSION:? Unremarkable portable chest for age. ? ? Dictated by: Ino Stallings M.D. on 04/11/2022 at 18:43 ?? ECG Data Interpretation: Normal sinus rhythm rate 73 IN interval 196 QRS [address] changes no T- wave inversions similar to previous EKGs MDM Narrative Medical decision making narrative: Patient is 77-year-old male who has a history of syncopal episodes hypertension hyperlipidemia presenting with a syncopal episode. He had a brief episode of hypotension. Blood work is overall reassuring mild evidence of some slight dehydration with a creatinine of 1.3 previous creatinine was 0.80 in November 2021. All other blood work does not show any anemia troponin is negative. Head CT does not show any evidence of withdrawal. He is awake alert no focal deficits. Echocardiogram does from January 2022 shows ascending aorta is mildly enlarged. I do not think this is relevant to today. He is given 1 L of fluid he ambulates in the ED without any difficulty. I do not think he needs any of advanced imaging today. Blood pressure medication may need to be looked at by PCP if this continues to happen. He previously had a carotid Doppler study done in September of 2021 which did not show any stenosis of the carotid artery. Discharge Plan Departure Patient Disposition: Home Clinical Impression: Vasovagal episode Instructions: DI for Syncope in Adults (Fainting) Activity Restrictions/Additional Instructions: *You have been diagnosed with vasovagal episode *What to do: At this time please talk with her PCP in regards her blood pressure medications. A may to be adjusted. Please stay hydrated *Continue to take medications as directed *Follow up with your primary care provider in 2-3 days or call [phone] *Return to ER if you should have recurrent episode of passing out, chest pain palpitations dizziness difficulty walking or any new, worsening or concerning symptoms Prescriptions: No Action Glucosamine Hydrochloride (#GLUCOSAMINE) 500 mg PO Q DAY Qty: 0 ascorbic acid (vitamin C) 500 MG tablet 1,000 mg PO QDAY Qty: 0 tamsulosin 0.4 mg capsule 0.4 mg PO BEDTIME Qty: 60 0RF atorvastatin 40 mg tablet 20 mg PO DAILY Qty: 90 3RF doxycycline hyclate 100 mg capsule 100 mg PO BID Qty: 14 0RF losartan-hydrochlorothiazide 100-25 mg tablet 1 tab PO DAILY paroxetine HCl 20 mg tablet 20 mg PO DAILY loratadine [Claritin] 10 mg Tablet 10 mg PO DAILY methylsulfonylmethane 500 mg Capsule PO DAILY Vitamin D (with calcium) 1 tab PO DAILY multivitamin with minerals 1 tab PO DAILY zinc 1 tab PO DAILY metoprolol succinate 50 mg tablet extended release 24 hr 25 mg PO DAILY (DME) [employer] Dreamstation CPAP Qty: 1 Dose Instruction: As directed Label Comments: Pressure: 8-16 cmH2O DME: [facility] Rx Instructions: As directed Referrals: Donato Hidalgo MD [Primary Care Provider] - Stand Alone Forms: Patient Portal/API
[2022-04-11 22:00] VITALS: BP 155/77; PULSE 76; RESP 24; O2SAT 96
== END 2022-04-11 22:38 | disposition home or self-care (01) ==
PROVIDERS: Emergency Provider Emergency Medicine; Family Provider Family Medicine; PCP Family Medicine
DX: R55 Syncope and collapse (principal); R07.9 Chest pain, unspecified
CPT/HCPCS: 70450; 71045; 80053; 82550; 83690; 84484; 85025; 85610; 85730; 93005; 93010; 99283; 99284

== ENCOUNTER → 2022-07-03 09:10 | Outpatient (CLI) | payer MEDICARE, SELFPAY ==
[2021-09-21 14:58] VITALS: BMI 25.6
--- NOTE | 2022-07-03 | DI.MRI.S_ITS ---
PROCEDURE: MR ABDOMEN WO/W CON INDICATIONS: Liver Cyst TECHNIQUE: Coronal HASTE, axial 2D FLASH in- and [id number]; axial breath-hold T2 FSE. Dynamic axial VIBE during the administration of contrast; post-contrast coronal VIBE or 2D FLASH with fat saturation from the hepatic dome to the iliac crests. Optional diffusion weighted imaging and ADC may be performed. COMPARISON: [facility], MR, MR ABDOMEN WO/W CON, 09/30/2021, 10:22. FINDINGS: Image quality: Good Lower chest: Possible trace hiatal hernia. Lungs are not well evaluated on this study. No pleural effusions. Solid organs: Numerous liver cysts again seen. Dominant conglomerate of cysts near the hepatic hilum appears similar to prior, measuring 6 by 5.5 cm as a conglomerate (4/18). Numerous other peribiliary cysts and other solitary cysts are again seen. There are small suspected perfusion all alterations in the liver, without focal suspicious lesion. The cysts have thin septations, without focal suspicious enhancing nodules. No associated diffusion restriction. Gallbladder is unremarkable Mildly dilated CBD measuring 8 mm again seen. Pancreatic duct is nondilated. Spleen is unremarkable. There are multiple renal cysts as well, some which appear hemorrhagic with intrinsic signal, without appreciable enhancement. No adrenal nodules. Vessels and lymph nodes: The main portal vein appears patent. No abdominal aortic aneurysm. No pathologic adenopathy by size criteria. Bowel and peritoneum: No bowel obstruction. No ascites identified. Body wall: Unremarkable Bones: No acute or suspicious osseous finding. IMPRESSION: Stable numerous hepatic cysts, the largest conglomerate near the hilum, compared to 09/30/2021. There also numerous peribiliary cysts. Mildly dilated CBD is similar to prior. If the patient has any primary history of malignancy or clinical signs of chronic liver disease, follow-up could be obtained at clinical discretion. No suspicious imaging features are identified on today's study, such as enhancement or diffusion restriction. Dictated by: Paras Blackwell M.D. on 07/03/2022 at 10:54 Approved by: Paras Blackwell M.D. on 07/03/2022 at 11:03
== END ==
PROVIDERS: Family Provider Family Medicine; PCP Family Medicine; Referring Provider Internal Medicine Gastroenterology; Visit Provider Internal Medicine Gastroenterology
DX: K76.89 Other specified diseases of liver (principal); K83.8 Other specified diseases of biliary tract; N28.1 Cyst of kidney, acquired
CPT/HCPCS: 74183

== ENCOUNTER → 2022-08-20 12:02 | Outpatient (CLI) | payer MEDICARE, SELFPAY ==
[2021-09-21 14:58] VITALS: BMI 25.6
[2022-08-20 14:07] LABS: Add Manual Diff / Slide Review NO; Basophils Absolute Auto 0 /uL (0-100); Basophils Percent Auto 0.8 % (0-2); Eosinophils Absolute Auto 300 /uL (0-450); Eosinophils Percent Auto 5.9 % (2-4); Hematocrit 36.6 % (41-53); Hemoglobin 12.3 g/dL (13.5-17.5); Lymphocytes Absolute Auto 1600 /uL (1100-4500); Lymphocytes Percent Auto 27.4 % (25-40); Mean Corpuscular HGB Conc 33.6 % (30-36); Mean Corpuscular Hemoglobin 28.9 PG (26-34); Monocytes Absolute Auto 500 /uL (0-900); Monocytes Percent Auto 8.2 % (3-14); Neutrophils Absolute Auto 3400 /uL (1500-7000); Neutrophils Percent Auto 57.7 % (50-75); Platelet Count 192 X10^3/uL (150-400); Red Blood Cell Count 4.26 X10^6/uL (4.5-5.9); Red Cell Distribution Width 14.4 % (11.6-14.8); White Blood Cell Count 5.8 X10^3/uL (4.5-11.0)
[2022-08-20 14:59] LABS: Alanine Aminotransferase 35 IU/L (<50); Albumin 3.9 g/dL (3.5-5.0); Albumin Globulin Ratio 1.3 (1.0-2.8); Alkaline Phosphatase 53 U/L (38-126); Aspartate Aminotransferase 39 IU/L (17-59); BUN Creatinine Ratio 27.1 (6-22); Bilirubin Total 0.4 mg/dL (0.2-1.3); Blood Urea Nitrogen 23 mg/dL (9-20); Calcium 9.1 mg/dL (8.4-10.2); Carbon Dioxide 31 mmol/L (22-32); Chloride 103 mmol/L (98-107); Estimated Glomerular Filt Rate > 60 mL/min (>60); Glucose 100 mg/dL (80-110); HEMOLYSIS < 15 (0-50); Potassium 4.3 mmol/L (3.4-5.1); Sodium 138 mmol/L (137-145); Total Protein 6.9 g/dL (6.3-8.2)
[2022-08-20 15:25] LABS: Prostate Specific Antigen Scrn 4.28 ng/mL (0.1-4.0)
[2022-08-20 18:11] LABS: Microalbumin Urine Random 13.2 mg/dL (0-1.6)
== END ==
PROVIDERS: Family Provider Family Medicine; PCP Family Medicine; Referring Provider Family Medicine; Visit Provider Family Medicine
DX: E78.2 Mixed hyperlipidemia (principal); Z12.5 Encounter for screening for malignant neoplasm of prostate; I10 Essential (primary) hypertension; R97.20 Elevated prostate specific antigen [PSA]
CPT/HCPCS: 36415; 80053; 82043; 82570; 83036; 85025; G0103

== ENCOUNTER → 2023-01-29 08:57 | Outpatient (CLI) | payer MEDICARE, SELFPAY ==
[2021-09-21 14:58] VITALS: BMI 25.6
[2023-01-29 10:19] LABS: Influenza A - CEPHEID Flu A NEGATIVE (NEGATIVE); Influenza B - CEPHEID Flu B NEGATIVE (NEGATIVE); Respiratory Syncytial Virus Negative (Negative)
[2023-01-29 10:24] LABS: COVID-19 CEPHEID 4-PLEX PCR Negative (Negative)
== END ==
PROVIDERS: Family Provider Family Medicine; PCP Family Medicine; Visit Provider Physician Assistant
DX: R05.1 Acute cough (principal); J06.9 Acute upper respiratory infection, unspecified
CPT/HCPCS: 0241U

== ENCOUNTER → 2023-01-29 09:33 | Outpatient (CLI) | payer MEDICARE, SELFPAY ==
[2021-09-21 14:58] VITALS: BMI 25.6
--- NOTE | 2023-01-29 09:35 | DI.RAD.S_ITS ---
PROCEDURE: XR CHEST 2V INDICATIONS: cough/congestion x 1 week TECHNIQUE: 2 views of the chest were acquired. COMPARISON: [facility], CR, XR CHEST 1V, 04/11/2022, 19:12. FINDINGS: Surgical changes and devices: There is a leadless cardiac pacing device.. Lungs and pleura: Lungs are clear. No pleural effusions or pneumothorax. Mediastinum: Mediastinal contours are normal. Heart size is normal. Bones and chest wall: No suspicious bony abnormalities. Soft tissues appear unremarkable. IMPRESSION: No acute cardiopulmonary abnormality is seen. Dictated by: Franchesca Wells M.D. on 01/29/2023 at 11:32 Approved by: Franchesca Wells M.D. on 01/29/2023 at 11:34
== END ==
PROVIDERS: Family Provider Family Medicine; PCP Family Medicine; Referring Provider Physician Assistant; Visit Provider Physician Assistant
DX: J06.9 Acute upper respiratory infection, unspecified (principal); R05.1 Acute cough
CPT/HCPCS: 0241U; 71046

== ENCOUNTER → 2023-02-27 06:51 | Outpatient (CLI) | payer MEDICARE, SELFPAY ==
[2021-09-21 14:58] VITALS: BMI 25.6
[2023-02-27 08:13] LABS: Add Manual Diff / Slide Review NO; Basophils Absolute Auto 100 /uL (0-100); Eosinophils Absolute Auto 400 /uL (0-450); Eosinophils Percent Auto 7.8 % (2-4); Hematocrit 36.1 % (41-53); Lymphocytes Absolute Auto 2000 /uL (1100-4500); Mean Corpuscular HGB Conc 33.2 % (30-36); Mean Corpuscular Volume 87.3 fL (80-100); Monocytes Absolute Auto 600 /uL (0-900); Monocytes Percent Auto 9.9 % (3-14); Neutrophils Absolute Auto 2700 /uL (1500-7000); Neutrophils Percent Auto 46.3 % (50-75); Platelet Count 191 X10^3/uL (150-400); Red Blood Cell Count 4.14 X10^6/uL (4.5-5.9); White Blood Cell Count 5.8 X10^3/uL (4.5-11.0)
[2023-02-27 08:35] LABS: Creatinine Urine Random 221.8 mg/dL
[2023-02-27 08:56] LABS: Microalbumin Urine Random 25.3 mg/dL (0-1.6)
[2023-02-27 14:27] LABS: Alanine Aminotransferase 28 IU/L (<50); Albumin 3.7 g/dL (3.5-5.0); Albumin Globulin Ratio 1.1 (1.0-2.8); Alkaline Phosphatase 47 U/L (38-126); Aspartate Aminotransferase 33 IU/L (17-59); BUN Creatinine Ratio 23.1 (6-22); Bilirubin Total 0.5 mg/dL (0.2-1.3); Bilirubin Unconjugated 0.3 mg/dL (0.0-1.1); Blood Urea Nitrogen 21 mg/dL (9-20); Calcium 9.5 mg/dL (8.4-10.2); Carbon Dioxide 30 mmol/L (22-32); Chloride 104 mmol/L (98-107); Cholesterol 175 mg/dL (140-199); Estimated Glomerular Filt Rate > 60 mL/min (>60); Globulin 3.3 g/dL (1.7-4.1); Glucose 101 mg/dL (80-110); HDL Cholesterol 51 mg/dL (40-60); HEMOLYSIS < 15 (0-50); LDL Cholesterol Calculated 112 mg/dL (<100); Potassium 4.4 mmol/L (3.4-5.1); Sodium 139 mmol/L (137-145); Triglycerides 59 mg/dL (35-150)
[2023-02-27 14:43] LABS: T4 Total Thyroxine 6.95 ug/dL (5.5-11.0)
[2023-02-27 14:53] LABS: Prostate Specific Antigen Scrn 6.65 ng/mL (0.1-4.0)
[2023-02-27 14:57] LABS: TSH w/ Reflex to FT4 3.26 uIU/mL (0.47-4.68)
[2023-02-27 15:12] LABS: Vitamin B12 808 pg/mL (239-931)
== END ==
PROVIDERS: Family Provider Family Medicine; PCP Family Medicine; Referring Provider Family Medicine; Visit Provider Family Medicine
DX: Z12.5 Encounter for screening for malignant neoplasm of prostate (principal); E78.2 Mixed hyperlipidemia; I10 Essential (primary) hypertension; R97.20 Elevated prostate specific antigen [PSA]; J32.9 Chronic sinusitis, unspecified; R46.89 Other symptoms and signs involving appearance and behavior; D64.9 Anemia, unspecified
CPT/HCPCS: 36415; 80053; 80061; 80076; 82043; 82570; 82607; 84436; 84443; 85025; G0103

== ENCOUNTER → 2023-03-25 11:10 | Outpatient (CLI) | payer MEDICARE, SELFPAY ==
[2021-09-21 14:58] VITALS: BMI 25.6
== END ==
PROVIDERS: Family Provider Family Medicine; PCP Family Medicine; Referring Provider Family Medicine; Visit Provider Family Medicine
DX: R06.2 Wheezing (principal); J98.8 Other specified respiratory disorders
CPT/HCPCS: 94060; 94726; 94729

== ENCOUNTER 2023-04-16 12:42 | Day surgery (SDC) | payer MEDICARE, SELFPAY ==
[2023-04-09 11:31] VITALS: BMI 25.6
--- NOTE | 2023-04-16 | PATH_ITS ---
[facility] Accession Number: [id number] No. of containers..02 Tissue . 01 Material submitted: . PART A: esophagus, E-G Junction - GE JUNCTION PART B: sigmoid colon - SIGMOID POLYP . 01 Diagnosis: A. GASTROESOPHAGEAL JUNCTION, BIOPSY: Squamous mucosa with no diagnostic abnormality. Intraepithelial eosinophils are not increased. Negative for dysplasia and malignancy. . B. SIGMOID COLON, POLYP: Tubular adenoma. MRV 04/23/2023 1614 Local . 01 Electronically signed: . Luisa Pierre MD, Pathologist NPI- [id number] . 01 Gross description: . Part A: GE JUNCTION: Received in formalin is 3 fragment(s) of wilson, soft tissue measuring 0.2 x 0.2 x 0.1 cm to 0.2 x 0.1 x 0.1 cm submitted entirely in 1 cassette(s) Part B: SIGMOID POLYP: Received in formalin is 2 fragment(s) of wilson, soft tissue measuring 0.6 x 0.1 x 0.1 cm to 0.2 x 0.2 x 0.1 cm submitted entirely in 1 cassette(s) /AAY 04/18/2023 0521 Local . 01 Microscopic: . A. A PAS stain was performed to evaluate for fungal organisms and is negative. The control stain showed appropriate reactivity. . 01 Pathologist provided ICD-10: D12.5 . 01 CPT . 554260, 143102, 642726 Specimen Comment: A courtesy copy of this report has been sent to [phone] Performed at: 01 [facility] [address] [place] [address] [address] [facility] [place] [place], [place] [id number] MD Wilmer Toussaint MD Phone: [phone]
[2023-04-16] MEDS: LACTATED RINGERS 1,000 ML 42 ML IV (14:18)
[2023-04-16 14:33] VITALS: BP 163/83; PULSE 73; RESP 16; TEMP 36.2; O2SAT 96
--- NOTE | 2023-04-16 14:57 | PM.HP.1 ---
History of Present Illness History of Present Illness Date Patient Seen: 04/16/23 Time Patient Seen: 14:57 Chief complaint: CTC Narrative: 78-year-old man with anemia here for diagnostic EGD and colonoscopy. No abdominal pain, blood per rectum. No family history of intestinal malignancy. 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 Smoking Status: Never smoker alcohol intake: current substance use type: does not use Type(s) of exercise: bicycling and regular exercise frequency: 5-6 times per week Meds Home Medications and Allergies Home Medications Medication Instructions Recorded Confirmed Type Glucosamine Hydrochloride 500 mg PO Q DAY ##0 03/23/11 04/16/23 History (#GLUCOSAMINE) ascorbic acid (vitamin C) 500 mg 1,000 mg PO QDAY ##0 07/31/12 04/16/23 History tablet Resprionics Dreamstation CPAP #1 ea 09/01/18 04/11/23 History Vitamin D (with calcium) 1 tab PO DAILY 09/17/21 04/16/23 History multivitamin with minerals 1 tab PO DAILY 09/17/21 04/16/23 History zinc 1 tab PO DAILY 09/17/21 04/16/23 History losartan 100 mg tablet 100 mg PO DAILY #90 tabs 08/23/22 04/16/23 Rx metoprolol succinate 25 mg See Rx Instructions .Route 08/27/22 04/16/23 Rx tablet,extended release 24 hr .COMPLEX #90 tabs omeprazole 20 mg capsule,delayed 20 mg PO QAM #30 caps 10/16/22 04/16/23 Rx release atorvastatin 20 mg tablet 20 mg PO DAILY #90 tabs 02/05/23 04/16/23 Rx paroxetine HCl 20 mg tablet See Rx Instructions .Route 02/05/23 04/16/23 Rx .COMPLEX #90 tabs amlodipine 2.5 mg tablet 2.5 mg PO DAILY #90 tabs 03/08/23 04/16/23 Rx albuterol sulfate 90 mcg/actuation 2 puff inhalation Q6H PRN 04/02/23 04/16/23 Rx aerosol inhaler shortness of breath or wheezing #8.5 grams tamsulosin 0.4 mg capsule 0.4 mg PO BEDTIME #90 caps 04/11/23 04/16/23 Rx Allergies Allergy/AdvReac Type Severity Reaction Status Date / Time ibuprofen [IBUPROFEN] Allergy Intermediate HIVES Verified 04/16/23 14:28 Exam Vital Signs (past 8 hours): - 04/16/23 14:33 Temperature 97.2 F L Pulse Rate 73 Respiratory Rate 16 Blood Pressure 163/83 H Pulse Oximetry 96 Oxygen Delivery Method Room Air Oxygen Delivery Method Room Air Narrative Exam Narrative: General adult man alert oriented no acute distress Chest nonlabored respiration Extremities warm well perfused Assessment & Plan Assessment and plan (1) Anemia: Qualifiers: Anemia type: unspecified type Qualified Code(s): D64.9 - Anemia, unspecified Status: Acute Assessment & Plan narrative: Diagnostic Esophagogastroduodenoscopy and colonoscopy indicated. Technical details were discussed. Risks, benefits, alternatives explained. Risks including but not limited to myocardial infarction, aspiration, bleeding, pain, missed lesion, incomplete examination, need for further radiographic studies, colonic perforation, and need for major abdominal surgery were discussed. All questions were answered to their satisfaction, and they are in agreement with this plan.
[2023-04-16 15:42] VITALS: BP 137/77; PULSE 71; RESP 16; TEMP 36.6; O2SAT 98
--- NOTE | 2023-04-16 15:43 | PM.OP.EC ---
Operative Date/Time/Diagnoses Date of procedure: 04/16/23 Time of procedure: 15:43 Pre-op diagnosis: Anemia Procedure & Clinicians Study performed: Esophagogastroduodenoscopy and colonoscopy Same procedure as scheduled: Yes Indications: Anemia Surgeon: Francois Nair Procedure Notes Procedure in detail: The history and physical was performed/updated and the patient is ASA class is 2. The procedure was discussed in detail with the patient. Potential risks complications including infection, bleeding, missed diagnosis, perforation, need for surgery, and were explained. Their questions were answered and informed consent was obtained. Patient placed in left lateral decubitus position. Time out was performed. Procedural sedation was administered by Anesthesia. A bite block was placed. the scope was inserted into the mouth and advanced through the esophagus and into the stomach. the pylorus was intubated and the duodenum was examined to the 2nd portion.. The scope was retroflexed within the stomach. The stomach was then decompressed and scope pulled back to the GE junction. The scope was then removed Examination began with a thorough inspection of the perianal area there was no evidence of fissures, fistulae, external hemorrhoids or cutaneous malignancy. The colonoscopy scope was then placed into the anal canal and was advanced to the cecum, which was identified by the ileocecal valve, the appendiceal orifice and the confluence of the taenia. The scope was then slowly withdrawn examining colon thoroughly in all directions, irrigating it of any residual stool. FINDINGS -friable GE junction. Multiple biopsies performed with forceps. -small hiatal hernia -sigmoid polyp sessile 3 mm removed with forceps The patient tolerated the procedure well. They will be discharged once criteria are met. The prep was of fair quality The withdrawl time was 6 minutes. Specimen(s): other (GE junction, sigmoid polyp) Impression: Colonic polyp, friable GE junction Post-procedure Plan for aftercare: Follow-up is dependent on pathology findings Disposition: same day surgery
[2023-04-16 15:47] VITALS: BP 144/81; PULSE 62; RESP 16; O2SAT 99
[2023-04-16 15:52] VITALS: BP 161/80; PULSE 65; RESP 12; TEMP 36.3; O2SAT 97
[2023-04-16 16:09] VITALS: BP 154/74; PULSE 63; RESP 14; O2SAT 94
== END 2023-04-16 16:30 | disposition home or self-care (01) ==
PROVIDERS: Family Provider Family Medicine; PCP Family Medicine; Referring Provider Surgery; Visit Provider Surgery
PROC: 0DJ08ZZ Inspection of Upper Intestinal Tract, Via Natural or Artificial Opening Endoscopic (ICD-10-PCS; CPT 43235; principal; 2023-04-16 14:30)
PROC: 0DJD8ZZ Inspection of Lower Intestinal Tract, Via Natural or Artificial Opening Endoscopic (ICD-10-PCS; CPT 45378; 2023-04-16 14:30)
DX: D64.9 Anemia, unspecified (principal); Z86.010 Personal history of colon polyps; K44.9 Diaphragmatic hernia without obstruction or gangrene; D12.5 Benign neoplasm of sigmoid colon
CPT/HCPCS: 45380; 43239; J2704

== ENCOUNTER → 2023-05-08 07:14 | Outpatient (CLI) | payer MEDICARE, SELFPAY ==
[2023-04-09 11:31] VITALS: BMI 25.6
[2023-05-11 07:36] LABS: PSA Free % 19.3 % (.); PSA, Total 4.1 ng/mL (0.0-4.0)
== END ==
PROVIDERS: Family Provider Family Medicine; PCP Family Medicine; Referring Provider Specialist; Visit Provider Specialist
DX: R97.20 Elevated prostate specific antigen [PSA] (principal); N13.8 Other obstructive and reflux uropathy; N40.1 Benign prostatic hyperplasia with lower urinary tract symptoms
CPT/HCPCS: 36415; 84153; 84154

== ENCOUNTER → 2023-08-28 07:57 | Outpatient (CLI) | payer MEDICARE, SELFPAY ==
[2023-04-09 11:31] VITALS: BMI 25.6
[2023-08-28 08:42] LABS: Add Manual Diff / Slide Review NO; Basophils Absolute Auto 100 /uL (0-100); Basophils Percent Auto 1.2 % (0-2); Eosinophils Absolute Auto 400 /uL (0-450); Eosinophils Percent Auto 8.3 % (2-4); Hematocrit 38.6 % (41-53); Hemoglobin 12.9 g/dL (13.5-17.5); Lymphocytes Absolute Auto 1600 /uL (1100-4500); Lymphocytes Percent Auto 31.2 % (25-40); Mean Corpuscular HGB Conc 33.4 % (30-36); Mean Corpuscular Hemoglobin 28.9 PG (26-34); Mean Corpuscular Volume 86.4 fL (80-100); Monocytes Absolute Auto 400 /uL (0-900); Monocytes Percent Auto 8.2 % (3-14); Neutrophils Absolute Auto 2600 /uL (1500-7000); Neutrophils Percent Auto 51.1 % (50-75); Platelet Count 199 X10^3/uL (150-400); Red Blood Cell Count 4.47 X10^6/uL (4.5-5.9); Red Cell Distribution Width 14.7 % (11.6-14.8); White Blood Cell Count 5.1 X10^3/uL (4.5-11.0)
[2023-08-28 09:29] LABS: Alanine Aminotransferase 35 IU/L (<50); Albumin Globulin Ratio 1.4 (1.0-2.8); Alkaline Phosphatase 54 U/L (38-126); Aspartate Aminotransferase 42 IU/L (17-59); BUN Creatinine Ratio 15.5 (6-22); Bilirubin Total 0.6 mg/dL (0.2-1.3); Blood Urea Nitrogen 15 mg/dL (9-20); Calcium 9.8 mg/dL (8.4-10.2); Carbon Dioxide 33 mmol/L (22-32); Chloride 107 mmol/L (98-107); Cholesterol 181 mg/dL (140-199); Estimated Glomerular Filt Rate > 60 mL/min (>60); Globulin 2.9 g/dL (1.7-4.1); Glucose 104 mg/dL (80-110); HDL Cholesterol 75 mg/dL (40-60); HEMOLYSIS < 15 (0-50); LDL Cholesterol Calculated 90 mg/dL (<100); Potassium 4.5 mmol/L (3.4-5.1); Sodium 141 mmol/L (137-145); Total Protein 6.9 g/dL (6.3-8.2); Triglycerides 78 mg/dL (35-150)
== END ==
LOC: LAB 07:58
PROVIDERS: Family Provider Family Medicine; PCP Family Medicine; Referring Provider Family Medicine; Visit Provider Family Medicine
DX: D64.9 Anemia, unspecified (principal); E78.2 Mixed hyperlipidemia; I10 Essential (primary) hypertension; Z79.899 Other long term (current) drug therapy
CPT/HCPCS: 36415; 80053; 80061; 85025

== ENCOUNTER → 2023-11-05 07:18 | Outpatient (CLI) | payer MEDICARE, SELFPAY ==
[2023-04-09 11:31] VITALS: BMI 25.6
[2023-11-05 08:04] LABS: Add Manual Diff / Slide Review NO; Basophils Absolute Auto 0 /uL (0-100); Basophils Percent Auto 0.8 % (0-2); Eosinophils Absolute Auto 400 /uL (0-450); Eosinophils Percent Auto 7.3 % (2-4); Hematocrit 36.6 % (41-53); Hemoglobin 12.3 g/dL (13.5-17.5); Lymphocytes Absolute Auto 1700 /uL (1100-4500); Lymphocytes Percent Auto 30.5 % (25-40); Mean Corpuscular HGB Conc 33.6 % (30-36); Mean Corpuscular Hemoglobin 29.2 PG (26-34); Mean Corpuscular Volume 86.8 fL (80-100); Monocytes Absolute Auto 500 /uL (0-900); Monocytes Percent Auto 8.6 % (3-14); Neutrophils Absolute Auto 3000 /uL (1500-7000); Neutrophils Percent Auto 52.8 % (50-75); Platelet Count 188 X10^3/uL (150-400); Red Blood Cell Count 4.21 X10^6/uL (4.5-5.9); Red Cell Distribution Width 14.5 % (11.6-14.8); White Blood Cell Count 5.6 X10^3/uL (4.5-11.0)
[2023-11-05 08:27] LABS: Creatinine Urine Random 134.17 mg/dL
[2023-11-05 08:48] LABS: Alanine Aminotransferase 33 IU/L (<50); Albumin 3.9 g/dL (3.5-5.0); Albumin Globulin Ratio 1.5 (1.0-2.8); Alkaline Phosphatase 57 U/L (38-126); Aspartate Aminotransferase 41 IU/L (17-59); BUN Creatinine Ratio 21.3 (6-22); Bilirubin Total 0.5 mg/dL (0.2-1.3); Blood Urea Nitrogen 19 mg/dL (9-20); Calcium 9.4 mg/dL (8.4-10.2); Carbon Dioxide 27 mmol/L (22-32); Chloride 106 mmol/L (98-107); Cholesterol 174 mg/dL (140-199); Estimated Glomerular Filt Rate > 60 mL/min (>60); Globulin 2.6 g/dL (1.7-4.1); Glucose 97 mg/dL (80-110); HDL Cholesterol 75 mg/dL (40-60); HEMOLYSIS < 15 (0-50); LDL Cholesterol Calculated 89 mg/dL (<100); Potassium 4.3 mmol/L (3.4-5.1); Sodium 140 mmol/L (137-145); Total Protein 6.5 g/dL (6.3-8.2); Triglycerides 52 mg/dL (35-150)
[2023-11-05 08:48] LABS: Microalbumin Urine Random 30.8 mg/dL (0-1.6)
[2023-11-05 09:04] LABS: TSH w/ Reflex to FT4 3.97 uIU/mL (0.47-4.68)
[2023-11-05 09:32] LABS: Hep C Virus Ab w/Reflex Quant NEGATIVE s/c (NEGATIVE)
[2023-11-06 06:07] LABS: Apolipoprotein B 81 mg/dL (<90)
[2023-11-07 08:17] LABS: PSA Free % 22.2 % (.)
== END ==
PROVIDERS: Specialist; Family Provider Family Medicine; PCP Family Medicine; Referring Provider Family Medicine; Visit Provider Family Medicine
DX: I77.89 Other specified disorders of arteries and arterioles (principal); I10 Essential (primary) hypertension; D64.9 Anemia, unspecified; R97.20 Elevated prostate specific antigen [PSA]; F32.9 Major depressive disorder, single episode, unspecified; E78.2 Mixed hyperlipidemia; N40.1 Benign prostatic hyperplasia with lower urinary tract symptoms; N13.8 Other obstructive and reflux uropathy
CPT/HCPCS: 36415; 80053; 80061; 82043; 82172; 82570; 84153; 84154; 84443; 85025; 86803

== ENCOUNTER → 2024-02-05 14:04 | Outpatient (CLI) | payer MEDICARE, SELFPAY ==
[2023-04-09 11:31] VITALS: BMI 25.6
[2024-02-05 16:10] LABS: Creatinine Urine Random 43.58 mg/dL
[2024-02-05 16:14] LABS: Microalbumin Urine Random 12.4 mg/dL (0-1.6)
== END ==
PROVIDERS: Family Provider Family Medicine; PCP Family Medicine; Referring Provider Family Medicine; Visit Provider Family Medicine
DX: R80.9 Proteinuria, unspecified (principal)
CPT/HCPCS: 82043; 82570

== ENCOUNTER → 2024-04-20 08:28 | Outpatient (CLI) | payer MEDICARE, SELFPAY ==
[2023-04-09 11:31] VITALS: BMI 25.6
[2024-04-20 10:41] LABS: BUN Creatinine Ratio 22.2 (6-22); Blood Urea Nitrogen 22 mg/dL (9-20); Calcium 9.8 mg/dL (8.4-10.2); Carbon Dioxide 29 mmol/L (22-32); Chloride 102 mmol/L (98-107); Estimated Glomerular Filt Rate > 60 mL/min (>60); Glucose 109 mg/dL (80-110); HEMOLYSIS < 15 (0-50); Potassium 4.3 mmol/L (3.4-5.1); Sodium 141 mmol/L (137-145)
[2024-04-21 06:36] LABS: PSA Free % 22.2 % (.); PSA, Total 5.4 ng/mL (0.0-4.0)
== END ==
PROVIDERS: Urology; Family Provider Family Medicine; PCP Family Medicine; Referring Provider Internal Medicine Gastroenterology; Visit Provider Internal Medicine Gastroenterology
DX: N40.1 Benign prostatic hyperplasia with lower urinary tract symptoms (principal); N13.8 Other obstructive and reflux uropathy; R97.20 Elevated prostate specific antigen [PSA]
CPT/HCPCS: 36415; 80048; 84153; 84154

== ENCOUNTER → 2024-04-25 11:07 | Outpatient (CLI) | payer MEDICARE, SELFPAY ==
[2023-04-09 11:31] VITALS: BMI 25.6
--- NOTE | 2024-04-25 | DI.MRI.S_ITS ---
PROCEDURE: MR ABDOMEN LIVER PROTOCOL INDICATIONS: HEPATIC CYST TECHNIQUE: Coronal HASTE, axial 2D FLASH in- and [id number]; axial breath-hold T2 FSE. Dynamic axial VIBE during the administration of contrast; post-contrast coronal VIBE or 2D FLASH with fat saturation from the hepatic dome to the iliac crests. Restricted diffusion weighted imaging and ADC. 10 cc Eovist IV contrast. COMPARISON: [facility], CT, CT ABDOMEN PELVIS W CON, 09/17/2021, 13:53. [facility], MR, MR ABDOMEN WO/W CON, 09/30/2021, 10:22. [facility], MR, MR ABDOMEN WO/W CON, 07/03/2022, 9:58. FINDINGS: Image quality: Diagnostic. Lung bases: Unremarkable. Liver: No solid mass. Multiple T2 hyperintense hepatic cysts. A larger cyst near the hilum measuring 3.8 cm, (3/15), not significantly changed. No mural nodule. No restricted diffusion. No suspicious enhancement. Gallbladder: No gallstones or wall thickening. Biliary ducts: No biliary dilation. Pancreas: No ductal dilation. No cyst. No peripancreatic fluid collection. Spleen: Size is within normal limits. Adrenal Glands: No adrenal nodules. Kidneys and Ureters: No hydronephrosis. Right kidney superior pole intrinsic T1 hyperintense cyst measuring 0.5 cm, (8/57), unchanged since at least 2021. Several benign T2 hyperintense cysts. Stomach and Bowel: No dilated loops of bowel. Peritoneum: No abnormal intraperitoneal fluid. No free air. Ventral Wall: No hernia. Abdominal Nodes: No retroperitoneal or mesenteric adenopathy by size criteria. Vessels: Aorta and inferior vena cava are normal in size. Bones: No aggressive osseous abnormality. IMPRESSION: 1. No suspicious enhancing mass. 2. Multiple hepatic cysts are not significantly changed. 3. No biliary or pancreatic ductal dilatation. No adenopathy. Dictated by: Ko Howell M.D. on 04/27/2024 at 13:00 Approved by: Ko Howell M.D. on 04/27/2024 at 13:12
== END ==
LOC: MRI 11:08
PROVIDERS: Family Provider Family Medicine; PCP Family Medicine; Referring Provider Internal Medicine Gastroenterology; Visit Provider Internal Medicine Gastroenterology
DX: K76.89 Other specified diseases of liver (principal); N28.1 Cyst of kidney, acquired
CPT/HCPCS: 74183; A9579

== ENCOUNTER → 2024-05-13 10:15 | Outpatient (CLI) | payer MEDICARE, SELFPAY ==
[2023-04-09 11:31] VITALS: BMI 25.6
== END ==
PROVIDERS: Family Provider Family Medicine; PCP Family Medicine; Visit Provider Urology
DX: N40.1 Benign prostatic hyperplasia with lower urinary tract symptoms (principal); N13.8 Other obstructive and reflux uropathy; R97.20 Elevated prostate specific antigen [PSA]; Z68.29 Body mass index [BMI] 29.0-29.9, adult
CPT/HCPCS: 51798; 81002; 87086; 99214

== ENCOUNTER → 2024-06-19 12:50 | Outpatient (CLI) | payer MEDICARE, SELFPAY ==
[2023-04-09 11:31] VITALS: BMI 25.6
[2024-06-19 14:03] LABS: Hematocrit 36.8 % (41-53); Hemoglobin 12.3 g/dL (13.5-17.5)
[2024-06-19 14:27] LABS: Blood Urea Nitrogen 19 mg/dL (9-20); Calcium 9.7 mg/dL (8.4-10.2); Carbon Dioxide 29 mmol/L (22-32); Chloride 100 mmol/L (98-107); Estimated Glomerular Filt Rate > 60 mL/min (>60); Glucose 83 mg/dL (80-110); HEMOLYSIS < 15 (0-50); Potassium 4.5 mmol/L (3.4-5.1); Sodium 138 mmol/L (137-145)
[2024-06-19 14:53] LABS: Creatinine Urine Random 100.02 mg/dL; Protein (Total) Urine Random 25 mg/dL (0-12); Protein Creatinine Ratio Urine 0.24 GRAM/24H
== END ==
PROVIDERS: Family Provider Family Medicine; PCP Family Medicine; Referring Provider Student in an Organized Health Care Education/Training Program; Visit Provider Student in an Organized Health Care Education/Training Program
DX: D64.9 Anemia, unspecified (principal); R80.9 Proteinuria, unspecified; N05.9 Unspecified nephritic syndrome with unspecified morphologic changes
CPT/HCPCS: 36415; 80048; 82570; 84156; 85014; 85018

== ENCOUNTER → 2024-08-06 09:01 | Outpatient (CLI) | payer MEDICARE, SELFPAY ==
[2023-04-09 11:31] VITALS: BMI 25.6
[2024-08-06 09:45] LABS: Hemoglobin 12.1 g/dL (13.5-17.5)
[2024-08-06 10:11] LABS: BUN Creatinine Ratio 24.5 (6-22); Blood Urea Nitrogen 23 mg/dL (9-20); Calcium 9.8 mg/dL (8.4-10.2); Carbon Dioxide 30 mmol/L (22-32); Chloride 103 mmol/L (98-107); Estimated Glomerular Filt Rate > 60 mL/min (>60); Glucose 76 mg/dL (70-99); HEMOLYSIS < 15 (0-50); Phosphorous 3.1 mg/dL (2.3-3.7); Potassium 4.2 mmol/L (3.4-5.1); Sodium 141 mmol/L (137-145)
[2024-08-06 10:26] LABS: Creatinine Urine Random 146.98 mg/dL; Protein (Total) Urine Random 17 mg/dL (0-12); Protein Creatinine Ratio Urine 0.11 GRAM/24H
[2024-08-08 08:35] LABS: Calcium 9.7 mg/dL (8.6-10.2); Parathyroid Hormone, Intact 32 pg/mL (15-65)
== END ==
PROVIDERS: Family Provider Family Medicine; PCP Family Medicine; Referring Provider Student in an Organized Health Care Education/Training Program; Visit Provider Student in an Organized Health Care Education/Training Program
DX: N18.2 Chronic kidney disease, stage 2 (mild) (principal); N25.0 Renal osteodystrophy
CPT/HCPCS: 36415; 80048; 82310; 82570; 83970; 84100; 84156; 85018

== ENCOUNTER → 2024-09-01 10:38 | Outpatient (CLI) | payer MEDICARE, SELFPAY ==
[2023-04-09 11:31] VITALS: BMI 25.6
--- NOTE | 2024-09-01 10:39 | DI.US.S_ITS ---
PROCEDURE: US RENAL COMPLETE INDICATIONS: CHRONIC KIDNEY DISEASE STAGE 2 TECHNIQUE: Real-time scanning was performed of the kidneys and bladder, with image documentation. COMPARISON: [facility], MR, MR ABDOMEN LIVER PROTOCOL, 04/25/2024, 11:37. [facility], MR, MR ABDOMEN WO/W CON, 07/03/2022, 9:58. FINDINGS: Kidneys: Kidneys are normal in size. Right kidney measures 11.6 cm long; left kidney measures 11.2 cm long. Right renal cortical thickness is 1.5 cm; left renal cortical thickness is 1.6 cm. Largest cyst demonstrates single septation measures 4.3 x 3.9 x 3.7 cm. Largest simple cyst. Bladder: Pre-void bladder volume is 198 mL. Post-void residual is 22 ml. Pre- void images demonstrate no intraluminal masses or stones. On pre-void images, only the left ureteral jets are noted with color Doppler interrogation. (Of note, ureteral jets may not be detectable in up to 25% of cases due to insufficient differences in specific gravity between ureteral and bladder urine). Miscellaneous: No free pelvic fluid. Simple hepatic cysts. IMPRESSION: Bilateral renal and hepatic cysts. Dictated by: Dipti Gonzalez M.D. on 09/01/2024 at 16:46 Approved by: Dipti Gonzalez M.D. on 09/01/2024 at 16:48
== END ==
PROVIDERS: Family Provider Family Medicine; PCP Family Medicine; Referring Provider Student in an Organized Health Care Education/Training Program; Visit Provider Student in an Organized Health Care Education/Training Program
DX: N18.2 Chronic kidney disease, stage 2 (mild) (principal); N28.1 Cyst of kidney, acquired; K76.89 Other specified diseases of liver
CPT/HCPCS: 76770

== ENCOUNTER → 2025-02-09 08:55 | Outpatient (CLI) | payer MEDICARE, SELFPAY ==
[2023-04-09 11:31] VITALS: BMI 25.6
--- NOTE | 2025-02-09 08:57 | DI.ECHO.S_ITS ---
[place] [facility]---------+ [facility] : : [id number] : : [place] : : [id number] : : Phone: [phone] Echocardiogram Report + + :Name: GIANCARLO MCCAULEY Study Date: 02/09/2025 Height: 72 in : :Hospital ReadingLocation: Weight: 222 lb : : Gender: Male BSA: 2.2 m2 : :: 1945 Age: 80 yrs BP: 141/80 mmHg: :Reason For Study: Ascending aorta dilatation : :Ordering Physician: EDISON, : :NEGRA Diaz Performed By: Marin Andino : :Referring: NEGRA HOGAN : + + Interpretation Summary The ejection fraction is estimated to be 60-65%. Diastolic function was not assessed. The right ventricle is normal in size and function. There is mild aortic regurgitation. There is mild tricuspid regurgitation. The right ventricular systolic pressure is estimated to be at least 26 mmHg based on an estimated right atrial pressure of 3 mm Hg. The ascending aorta is mildly enlarged. Compared to the prior study 01/04/2022, the aortic regurgitation is decreased. Procedure: A two-dimensional transthoracic echocardiogram with color flow and Doppler was performed. The study quality was technically adequate. Comparison is made with the echocardiogram of 01/04/2022. The patient was in normal sinus rhythm during the exam. Left Ventricle: The left ventricle is normal in size. Left ventricular wall thickness is borderline increased. Left ventricular systolic function is normal. The ejection fraction is estimated to be 60-65%. There are no focal wall motion abnormalities. Diastolic function was not assessed. Right Ventricle: The right ventricle is normal in size and function. Atria: The left atrial size is normal. Right atrial size is normal. There is no Doppler evidence for an interatrial shunt. Mitral Valve: The mitral valve leaflets appear to open well. There is no mitral valve stenosis. There is trace mitral regurgitation. Aortic Valve: The aortic valve is trileaflet. The aortic valve opens well. There is no aortic valve stenosis. There is mild aortic regurgitation. Tricuspid Valve: The tricuspid valve leaflets are thin and pliable. There is mild tricuspid regurgitation. The right ventricular systolic pressure is estimated to be at least 26 mmHg based on an estimated right atrial pressure of 3 mm Hg. Pulmonic Valve: The pulmonic valve is not well seen, but is grossly normal. There is mild pulmonic regurgitation. Great Vessels: Based on patients BSA of 2.2 m2, the aortic root in the area of the sinuses of Valsalva with a max diameter of 3.2 cm. is with in normal range. Based on patients BSA of 2.2 m2, the proximal ascending aorta with a max diameter of 3.8 cm. is with in normal range. This is unchanged compared to the previous study. The aortic arch could not be visualized. The ascending aorta is mildly enlarged. The pulmonary artery is normal size. The IVC is of normal diameter and collapses greater than 50% with a sniff. This suggests a low right atrial pressure of 3 mm Hg. Pericardium/ Pleura There is no pericardial effusion. MMode/2D Measurements & Calculations LVIDd: 4.8 cm LVOT diam: 2.0 cm LVIDs: 3.2 cm Ao root diam: 3.2 cm FS: 33.7 % asc Aorta Diam: 3.8 cm IVSd: 1.1 cm LVPWd: 1.1 cm LV thayer. diameter/BSA (cm/m^2): 2.2 LV sys. diameter/BSA (cm/m^2): 1.4 LA A2 area: 25.3 cm2 RA long axis: 6.5 cm LA A4 area: 22.9 cm2 RA area: 19.0 cm2 LA length (vol): 6.6 cm RA vol: 46.8 ml LA vol: 74.4 ml RA : 21.0 ml/m2 LA vol index: 33.4 ml/m2 IVC diam: 1.9 cm RVD1 (basal): 3.2 cm RVD2 (mid): 2.9 cm TAPSE: 2.6 cm Doppler Measurements & Calculations Ao V2 max: 151.1 cm/sec LVOT Max Asad: 123.1 cm/sec Ao V2 mean: 113.5 cm/sec LV V1 max P.1 mmHg Ao max P.1 mmHg LV V1 VTI: 29.5 cm Ao mean P.6 mmHg ALONSO(I,D): 2.7 cm2 Ao V2 VTI: 33.4 cm ALONSO(V,D): 2.5 cm2 sev ratio: 0.88 ALONSO indexed to BSA (cm^2/m^2): 1.2 AI P1/2t: 614.7 msec AI dec slope: 189.1 cm/sec2 MV E max asad: 66.1 cm/sec TR max asad: 223.6 cm/sec MV A max asad: 97.2 cm/sec TR max P.1 mmHg MV E/A: 0.68 PA V2 max: 81.9 cm/sec MV dec time: 0.22 sec PA V2 mean: 52.6 cm/sec PA mean P.3 mmHg PA pr(Accel): 36.6 mmHg SV(LVOT): 88.7 ml Qp/Qs (V,Ao): 1.0/4.9 Qp/Qs (V,LVOT): 1.0/1.5 Reading Physician:07:38 PM
== END ==
LOC: ECHO 08:56
PROVIDERS: PCP Family Medicine; Referring Provider Internal Medicine Cardiovascular Disease; Visit Provider Internal Medicine Cardiovascular Disease
DX: I08.2 Rheumatic disorders of both aortic and tricuspid valves (principal); I77.810 Thoracic aortic ectasia; I77.89 Other specified disorders of arteries and arterioles
CPT/HCPCS: 93306